=== PATIENT | female | born 1965 | race Two or more races ===

== ENCOUNTER → 2020-05-21 10:42 | Outpatient (BNVA) | payer OTHER, SELFPAY | PROVIDERS: Visit Provider Urology | DX: Z76.89 Persons encountering health services in other specified circumstances (principal) ==

== ENCOUNTER 2021-03-08 11:00 | Outpatient (RCR) | payer OTHER, SELFPAY | END 2021-03-22 14:53 | disposition home or self-care (01) | LOC: HO.PTCHIC 11:00 | PROVIDERS: PCP Internal Medicine; Visit Provider Orthopaedic Surgery | DX: Z96.641 Presence of right artificial hip joint (principal) | CPT/HCPCS: 97110; 97112; 97116; 97162; 97530 ==

== ENCOUNTER → 2022-05-20 09:28 | Outpatient (BNVA) | payer OTHER, SELFPAY | PROVIDERS: PCP Internal Medicine; Visit Provider Nurse Practitioner Family | DX: M35.3 Polymyalgia rheumatica (principal); M79.7 Fibromyalgia; M17.0 Bilateral primary osteoarthritis of knee; M25.511 Pain in right shoulder; M25.512 Pain in left shoulder; M54.2 Cervicalgia; Z79.52 Long term (current) use of systemic steroids | CPT/HCPCS: 99202 ==

== ENCOUNTER 2022-05-28 09:37 | Outpatient (REF) | payer OTHER, SELFPAY ==
--- NOTE | ~2022-05-28 | XR_ITS ---
EXAMINATION: XR SHOULDER, BILATERAL XR CERVICAL SPINE CLINICAL INFORMATION: Shoulder pain and neck pain. COMPARISON: None. TECHNIQUE: 4 views each shoulder. Cervical spine 3 views. FINDINGS: Right Shoulder: There is no visible acute fracture, dislocation or subluxation. No bony erosive changes. There is loss of right AC joint space with inferior spurring. The glenohumeral joint space is preserved normal. Left AC Joint: There is preserved glenohumeral joint space. There is minimal loss of left AC joint with periarticular spurring. The soft tissues are normal. Cervical Spine: There is mild straightening of cervical lordosis. There is flexible disc prostheses at the C5-C6 disc level. Minimal loss of C4-C5 disc height is noted. There is grade 1 anterolisthesis C3 over C4. The rest of the alignment and disc heights are normal. No visible acute fracture, lytic or sclerotic process seen. The prevertebral soft tissues are normal. XR/XR shoulder LT min 2V IMPRESSION: Flexible disc prosthesis C5-C6 disc level. Mild loss of C4-C5 disc height is noted. No visible acute fracture or dislocation seen. Mild degenerative arthritic changes bilateral AC joints. Bilateral glenohumeral joints are unremarkable. No acute fracture or dislocation seen.
--- NOTE | ~2022-05-28 | XR_ITS ---
EXAMINATION: XR SHOULDER, BILATERAL XR CERVICAL SPINE CLINICAL INFORMATION: Shoulder pain and neck pain. COMPARISON: None. TECHNIQUE: 4 views each shoulder. Cervical spine 3 views. FINDINGS: Right Shoulder: There is no visible acute fracture, dislocation or subluxation. No bony erosive changes. There is loss of right AC joint space with inferior spurring. The glenohumeral joint space is preserved normal. Left AC Joint: There is preserved glenohumeral joint space. There is minimal loss of left AC joint with periarticular spurring. The soft tissues are normal. Cervical Spine: There is mild straightening of cervical lordosis. There is flexible disc prostheses at the C5-C6 disc level. Minimal loss of C4-C5 disc height is noted. There is grade 1 anterolisthesis C3 over C4. The rest of the alignment and disc heights are normal. No visible acute fracture, lytic or sclerotic process seen. The prevertebral soft tissues are normal. XR/XR shoulder RT min 2V IMPRESSION: Flexible disc prosthesis C5-C6 disc level. Mild loss of C4-C5 disc height is noted. No visible acute fracture or dislocation seen. Mild degenerative arthritic changes bilateral AC joints. Bilateral glenohumeral joints are unremarkable. No acute fracture or dislocation seen.
--- NOTE | ~2022-05-28 | XR_ITS ---
EXAMINATION: XR SHOULDER, BILATERAL XR CERVICAL SPINE CLINICAL INFORMATION: Shoulder pain and neck pain. COMPARISON: None. TECHNIQUE: 4 views each shoulder. Cervical spine 3 views. FINDINGS: Right Shoulder: There is no visible acute fracture, dislocation or subluxation. No bony erosive changes. There is loss of right AC joint space with inferior spurring. The glenohumeral joint space is preserved normal. Left AC Joint: There is preserved glenohumeral joint space. There is minimal loss of left AC joint with periarticular spurring. The soft tissues are normal. Cervical Spine: There is mild straightening of cervical lordosis. There is flexible disc prostheses at the C5-C6 disc level. Minimal loss of C4-C5 disc height is noted. There is grade 1 anterolisthesis C3 over C4. The rest of the alignment and disc heights are normal. No visible acute fracture, lytic or sclerotic process seen. The prevertebral soft tissues are normal. XR/XR cervical spine 3V IMPRESSION: Flexible disc prosthesis C5-C6 disc level. Mild loss of C4-C5 disc height is noted. No visible acute fracture or dislocation seen. Mild degenerative arthritic changes bilateral AC joints. Bilateral glenohumeral joints are unremarkable. No acute fracture or dislocation seen.
[2022-05-28 11:00] LABS: Alanine Aminotransferase 13 U/L (0-31); Albumin Level 4.4 g/dL (3.5-5.0); Alkaline Phosphatase 90 U/L (39-117); Anion Gap 14 (12-20); Aspartate Amino Transferase 17 U/L (5-31); Bilirubin Total 0.3 mg/dL (0.0-1.0); Blood Urea Nitrogen 11 mg/dL (9-16); C Reactive Protein 0.27 mg/dL (< or = 0.50); Calcium 9.2 mg/dL (8.4-10.2); Carbon Dioxide 26 mmol/L (22-29); Chloride 104 mmol/L (96-108); Estimated Glomerular Filt Rate > 60; Glucose Random 114 mg/dL (60-115); Potassium 4.4 mmol/L (3.3-5.1); Sodium 140 mmol/L (135-145); Total Protein 6.8 g/dL (6.5-8.0)
[2022-05-28 11:23] LABS: Erythrocyte Sedimentation Rate 13 MM/HR (0-20)
== END 2022-05-28 09:38 | disposition home or self-care (01) ==
LOC: HO.LAB 09:37
PROVIDERS: PCP Internal Medicine; Visit Provider Nurse Practitioner Family
DX: M25.50 Pain in unspecified joint (principal); M25.511 Pain in right shoulder; M25.512 Pain in left shoulder; M54.2 Cervicalgia
CPT/HCPCS: 36415; 72040; 73030; 80053; 85652; 86140

== ENCOUNTER 2022-06-04 08:46 | Outpatient (REF) | payer OTHER, SELFPAY ==
--- NOTE | ~2022-06-04 | MM_ITS ---
EXAMINATION: BONE DENSITOMETRY CLINICAL INDICATION: Long-term, current, use of systemic steroids. COMPARISON: None (current study represents initial baseline exam). TECHNIQUE: Using a Values of n DXA System (software version: 13.1) manufactured by [employer], dual-energy x-ray absorptiometry was performed of the lumbar spine and left forearm radius 33%. Patient has had bilateral hip replacements. The images are of good technical quality. Summary results are attached. FINDINGS: AP SPINE L1-L4: BMD 1.047 g/cm2, Z-score 0.2, T-score -1.1, osteopenia. LEFT FOREARM RADIUS 33%: BMD 0.590 g/cm2, Z-score -2.5, T-score -3.3, osteoporosis. IDENTIFIED RISK FACTORS: Early menopause, secondary osteoporosis, glucocorticoids (chronic), family history (parental hip fracture), rheumatoid arthritis, recurrent falls. HISTORY OF FRACTURE: None listed. MEDICATIONS: None listed. MM/XR DEXA axial skeleton IMPRESSION: 1. DIAGNOSIS: Osteoporosis based on the lowest T-score value of -3.3 in the forearm radius 33% applying World Health Organization criteria. 2. 10-YEAR FRACTURE RISK PREDICTION, FRAX: According to the guidelines, FRAX calculation should only be performed on patients in the osteopenia bone density category. Therefore, FRAX was not performed on this patient. 3. Treatment Recommendations: NOF guidelines recommend consideration for treatment in postmenopausal women and men age 50 and older presenting with the following: -A hip or vertebral (clinical or morphometric) fracture. -T-score less than or equal to -2.5 at the femoral neck or spine after appropriate evaluation to exclude secondary causes. -Low bone mass at the hip or spine and a 10-year fracture probability by FRAX of greater than or equal to 3% for hip fracture or greater than or equal to 20% for major osteoporotic fracture based on the [place] adapted WHO algorithm. 4. Other Recommendations: All treatment decisions require clinical judgment and consideration of individual patient factors, including patient preferences, comorbidities, previous drug use, risk factors not captured in the FRAX model (e.g. frailty, falls, vitamin D deficiency, increased bone turnover, interval significant decline in bone density) and possible under or overestimation of fracture risk by FRAX. Additional medical evaluation for secondary cause of low bone mineral density may be appropriate. FUTURE SCAN RECOMMENDATION: People with diagnosed cases of osteoporosis or at high risk for fracture should have regular bone mineral density tests. For patients eligible for Medicare, routine testing is allowed once every 2 years. The testing frequency can be increased to one year for patients who have rapidly progressing disease, those who are receiving or discontinuing medical therapy to restore bone mass, or have additional risk factors.
== END 2022-06-04 08:47 | disposition home or self-care (01) ==
LOC: HO.MAMMO 08:46
PROVIDERS: PCP Internal Medicine; Visit Provider Nurse Practitioner Family
DX: Z13.820 Encounter for screening for osteoporosis (principal); Z79.52 Long term (current) use of systemic steroids; Z78.0 Asymptomatic menopausal state
CPT/HCPCS: 77080

== ENCOUNTER 2022-06-06 16:48 | Emergency (ER) | payer OTHER, SELFPAY ==
[2022-06-06 17:09] VITALS: BP 138/90; PULSE 83; O2SAT 98
[2022-06-06 17:24] VITALS: BP 133/72; PULSE 80; RESP 18; TEMP 37; O2SAT 98; BMI 23.2
== END 2022-06-06 19:44 | disposition left against medical advice (07) ==
PROVIDERS: Emergency Provider Emergency Medicine
DX: S01.511A Laceration without foreign body of lip, initial encounter (principal); W18.30XA Fall on same level, unspecified, initial encounter; Y93.9 Activity, unspecified; Y92.019 Unspecified place in single-family (private) house as the place of occurrence of the external cause; Y99.9 Unspecified external cause status
CPT/HCPCS: 99281

== ENCOUNTER 2022-07-17 09:30 | Outpatient (REF) | payer OTHER, SELFPAY ==
--- NOTE | ~2022-07-17 | XR_ITS ---
EXAMINATION: KNEE X-RAY CLINICAL INFORMATION: Left knee pain COMPARISON: None TECHNIQUE: Standing AP view of both knees and lateral and sunrise view of the left knee FINDINGS: Left: There is an old healed left distal femoral shaft and condylar fracture. There is severe arthritis at the patellofemoral joint and mild arthritis at the lateral femoral tibial joint. There is a small joint effusion. Standing AP view of the right knee is unremarkable. XR/XR knee LT 2V IMPRESSION: Left: Old healed distal femoral shaft fracture. Arthritis, severe at the patellofemoral joint.
--- NOTE | ~2022-07-17 | XR_ITS ---
EXAMINATION: KNEE X-RAY CLINICAL INFORMATION: Left knee pain COMPARISON: None TECHNIQUE: Standing AP view of both knees and lateral and sunrise view of the left knee FINDINGS: Left: There is an old healed left distal femoral shaft and condylar fracture. There is severe arthritis at the patellofemoral joint and mild arthritis at the lateral femoral tibial joint. There is a small joint effusion. Standing AP view of the right knee is unremarkable. XR/XR knee standing BI IMPRESSION: Left: Old healed distal femoral shaft fracture. Arthritis, severe at the patellofemoral joint.
--- NOTE | ~2022-07-17 | XR_ITS ---
EXAMINATION: XR HIP, LEFT CLINICAL INFORMATION: Pain COMPARISON: Previous x-ray March 2020 TECHNIQUE: AP view of the pelvis and one view of each hip FINDINGS: There are bilateral hip replacements in satisfactory position. No fracture, dislocation or x-ray evidence of loosening. Bones of the pelvis are normal. Soft tissues are normal. XR/XR hip LT w PEL1V IMPRESSION: Satisfactory appearance of bilateral hip replacements.
== END 2022-07-17 09:31 | disposition home or self-care (01) ==
LOC: HO.HOSX 09:30
PROVIDERS: Visit Provider Physician Assistant
DX: M25.552 Pain in left hip (principal); M25.562 Pain in left knee; M25.561 Pain in right knee
CPT/HCPCS: 73502; 73560; 73565; 99202

== ENCOUNTER 2022-09-19 13:48 | Emergency (ER) | payer OTHER, SELFPAY ==
--- NOTE | ~2022-09-19 | CT_ITS ---
EXAMINATION: CT HEAD WITHOUT CONTRAST CLINICAL INFORMATION: Vertigo. COMPARISON: No relevant prior imaging. TECHNIQUE: Contiguous axial imaging was performed from the skull base to vertex without intravenous administration of contrast. This CT examination was performed using dose optimization techniques as appropriate, variously including the following: *Automated exposure control *Adjustment of mA and/or kV according to patient size (this includes techniques or standardized protocols for targeted exams where dose is matched to indication/reason for exam; i.e. extremities or head) *Use of iterative reconstruction technique DLP: 605 mGy-cm FINDINGS: There is no acute intracranial hemorrhage or abnormal extra-axial collection. No intracranial mass effect or midline shift. Lateral and third ventricles are normal. No hydrocephalus. Wilcox-white matter differentiation is preserved and there is no evidence of acute territorial infarct. The calvarium and skull base are intact. Mastoid air cells and middle ear cavities are well aerated. CT/CT head/brain wo IV con IMPRESSION: Normal CT scan of the head.
[2022-09-19 14:06] VITALS: BP 120/82; BP 140/70; PULSE 70; PULSE 80; RESP 16; O2SAT 98; O2SAT 99; BMI 22.8
--- NOTE | 2022-09-19 14:24 | ED_ITS ---
HPI - General Adult General Chief complaint: Nausea/Vomiting/Diarrhea Stated complaint: Hernia per EMS Time Seen by Provider: 09/19/22 14:09 Source: patient Mode of arrival: EMS Limitations: no limitations History of Present Illness HPI narrative: Patient with dizziness and vomiting. The dizziness is described as room spinning. Dizziness is worse when she moves her head, denies ringing in the ears, denies earache. Onset (ago): hour(s) Severity: moderate Exacerbating factors: other (head movement.) Associated symptoms: nausea/vomiting Related Data Home Medications Medication Instructions Recorded Confirmed albuterol sulfate 90 mcg/actuation inhalation 05/19/20 05/20/22 aerosol inhaler atorvastatin 80 mg tablet 80 mg PO DAILY 05/19/20 05/20/22 ipratropium 0.5 mg-albuterol 3 mg ml inhalation 05/19/20 05/20/22 (2.5 mg base)/3 mL nebulization soln loratadine 10 mg tablet 10 mg PO DAILY PRN allergies 05/19/20 05/20/22 omeprazole 20 mg capsule,delayed 20 mg PO DAILY 05/19/20 05/20/22 release acetaminophen 500 mg tablet 500 mg PO Q6H PRN 05/20/22 05/20/22 budesonide-formoterol HFA 160 2 puff inhalation BID 05/20/22 05/20/22 mcg-4.5 mcg/actuation aerosol inhaler gabapentin 300 mg capsule 300 mg PO TID 05/20/22 05/20/22 methocarbamol 500 mg tablet 500 mg PO TID 05/20/22 05/20/22 montelukast 10 mg tablet 10 mg PO BEDTIME 05/20/22 05/20/22 Previous Rx's Medication Instructions Recorded meclizine 25 mg tablet 25 mg PO TID dizziness #20 tabs 09/19/22 ondansetron 4 mg disintegrating 4 mg PO Q8H 4 days #12 tabs 09/19/22 tablet Allergies Allergy/AdvReac Type Severity Reaction Status Date / Time No Known Allergies Allergy Unverified 07/17/22 10:09 [No Known Allergies*] Review of Systems Review of Systems: Yes all other systems are reviewed and are negative Constitutional: Comments: dizziness, nausea and vomiting PMFSH Past Medical History Surgical History H/O bilateral hip replacements H/O cervical spine surgery History of appendectomy History of eye surgery Hx of section Family History Family History Father Emphysema lung Mother Hypertension Arthritis Diabetes Social History Social History Household Members: None Alcohol intake: current Alcohol intake frequency: does not drink Patient Tobacco Use Status: Former Tobacco user Quit Date: 2018 Substance Use Type: Marijuana Advance Directives: No Advance Directives Information Provided: No Current occupational status: disabled Physical Exam ED Vital Signs: Vital Signs - 24 hr 09/19/22 14:06 Pulse Rate 70 Respiratory Rate 16 Blood Pressure 140/70 H Pulse Oximetry 98 Oxygen Delivery Method Room Air BMI result Body Mass Index 22.8 Const Other: chronically ill appearing Nutritional Appearance: average body habitus Orientation/consciousness: oriented to person and patient oriented x3 Limitations: no limitations HENMT Head: Yes normal to inspection Ears: external ears normal General nose exam: Normal external nose present Mouth: Normal oral and palatal mucosa present and oropharynx normal Throat: Yes posterior oropharynx normal Eyes Other: right lateral nystagmus General: appearance normal, both eyes and all related structures Neck Neck: Yes normal visual inspection Chest Chest palpation & inspection: normal inspection of the chest Resp Auscultation: clear to auscultation bilaterally Cardio Jugular venous distension: no JVD Rate: regular rate Rhythm: regular rhythm Heart sounds: S1 normal heart sound present and S2 normal heart sound present GI Inspection: Yes normal to inspection Palpation (GI): Soft to palpation, nontender and No hepatosplenomegaly present Auscultation: normal bowel sounds General: Yes no CVA tenderness Back/Spine/Pelvis Back: no CVA tenderness Skin General skin exam: no rashes or lesions noted Neuro General: oriented to person and patient oriented x3 Cranial nerves: Yes CN's II-XII intact bilaterally Motor exam (neuro): 5/5 motor strength present throughout Extrem General: Yes normal to inspection Psych Appearance: grossly normal Course Reevaluation(s) Reevaluation #1: patient with vertigo will dc home Time: 16:55 Medications Administered Discontinued Medications Generic Name Dose Route Start Last Admin Trade Name Freq PRN Reason Stop Dose Admin Meclizine HCl 50 mg 09/19/22 14:37 09/19/22 15:44 Meclizine Hcl 25 Mg Tablet PO 09/19/22 14:38 50 mg ONCE ONE Administration Ondansetron HCl 4 mg 09/19/22 14:37 09/19/22 15:44 Ondansetron Hcl 4 Mg/2 Ml Vial IVPUSH 09/19/22 14:38 4 mg ONCE ONE Administration Pantoprazole Sodium 40 mg 09/19/22 14:37 09/19/22 15:44 Pantoprazole Sodium 40 Mg/10 Ml Vial IVPUSH 09/19/22 14:38 40 mg ONCE ONE Administration Medical Decision Making Differential Diagnosis vertigo, gastritis, nausea vomiting, brain mass Admission/Observation 60 you with the above symptoms admission was considered Lab Data MDM Lab Attestation statement: I reviewed the patient's lab results. 09/19/22 14:54 09/19/22 14:54 Labs: Lab Results 09/19/22 09/19/22 Range/Units 14:54 14:54 WBC 7.4 (4.8-10.8) X10*3/uL RBC 4.49 (4.20-5.50) X10*6/uL Hgb 12.4 (12.0-16.0) g/dl Hct 38.7 (37.0-47.0) % MCV 86.2 (80.0-98.0) fL MCH 27.6 (27.0-33.0) pg MCHC 32.0 (31.0-35.0) g/dl RDW 14.3 (11.0-16.0) % Plt Count 221 (160-400) X10*3/uL MPV 10.4 (9.4-12.3) fL Immature Gran % (Auto) 0.3 (0.0-0.4) % Neut % (Auto) 67.8 (45-73) % Lymph % (Auto) 22.3 (20-40) % Brooks % (Auto) 8.8 (2-11) % Eos % (Auto) 0.3 (0-4) % Baso % (Auto) 0.5 (0-2) % Lymph # (Auto) 1.7 (1.2-4.9) X10*3/uL Brooks # (Auto) 0.7 (0.1-1.2) X10*3/uL Eos # (Auto) 0.0 (0.0-0.4) X10*3/uL Baso # (Auto) 0.0 (0.0-0.2) X10*3/uL Abs Immat Gran (auto) 0.02 (0.00-0.03) X10*3/uL Absolute Neuts (auto) 5.0 (2.0-8.3) x10*3/uL Absolute Nucleated RBC 0.000 (0.0-0.012) X10*3/uL Nucleated RBC % (auto) 0.0 (0.0-0.2) /100WBC Sodium 139 (135-145) mmol/L Potassium 3.8 (3.3-5.1) mmol/L Chloride 105 (96-108) mmol/L Carbon Dioxide 25 (22-29) mmol/L Anion Gap 13 (12-20) BUN 15 (9-16) mg/dL Creatinine 0.75 (0.5-1.4) mg/dL Estim Creat Clear Calc 63.8 Estimated GFR > 60 Random Glucose 135 H (60-115) mg/dL Calcium 9.4 (8.4-10.2) mg/dL Independent Interpretation I performed an independent interpretation of an: CT Scan (no masses or bleed) Independent Historian Clinical information obtained from an independent historian. History obtained from or confirmed by: EMS Discharge Plan Discharge Clinical Impression: Vertigo, Nausea & vomiting Patient Disposition: Home, Self-Care Instructions: Vertigo (ED), Acute Nausea and Vomiting (ED), Dizziness (ED) Prescriptions: New ondansetron 4 mg tablet,disintegrating 4 mg PO Q8H 4 Days Qty: 12 0RF meclizine 25 mg tablet 25 mg PO TID Qty: 20 0RF No Action loratadine 10 mg tablet 10 mg PO DAILY PRN (Reason: allergies) omeprazole 20 mg capsule,delayed release(DR/EC) 20 mg PO DAILY atorvastatin 80 mg tablet 80 mg PO DAILY albuterol sulfate 90 mcg/actuation HFA aerosol inhaler inhalation ipratropium-albuterol 0.5 mg-3 mg(2.5 mg base)/3 mL solution for nebulization inhalation acetaminophen 500 mg tablet 500 mg PO Q6H PRN gabapentin 300 mg capsule 300 mg PO TID methocarbamol 500 mg tablet 500 mg PO TID montelukast 10 mg tablet 10 mg PO BEDTIME budesonide-formoterol 160-4.5 mcg/actuation HFA aerosol inhaler 2 puff inhalation BID Referrals: Physician,Unknown J [Primary Care Provider] - 5 days
[2022-09-19 15:00] LABS: Basophils Percent Auto 0.5 % (0-2); Eosinophils Percent Auto 0.3 % (0-4); Hematocrit 38.7 % (37.0-47.0); Hemoglobin 12.4 g/dl (12.0-16.0); Imm Gran Abs Auto 0.02 X10*3/uL (0.00-0.03); Imm Gran Pct Auto 0.3 % (0.0-0.4); Lymphocytes Absolute Auto 1.7 X10*3/uL (1.2-4.9); Lymphocytes Percent Auto 22.3 % (20-40); MANUAL DIFF FLAG NO; Mean Corpuscular Hemoglobin 27.6 pg (27.0-33.0); Mean Corpuscular Volume 86.2 fL (80.0-98.0); Mean Platelet Volume 10.4 fL (9.4-12.3); Monocytes Absolute Auto 0.7 X10*3/uL (0.1-1.2); Monocytes Percent Auto 8.8 % (2-11); Neutrophils Percent Auto 67.8 % (45-73); Platelet Count 221 X10*3/uL (160-400); Red Blood Count 4.49 X10*6/uL (4.20-5.50); Red Cell Distribution Width 14.3 % (11.0-16.0); White Blood Count 7.4 X10*3/uL (4.8-10.8)
[2022-09-19 15:20] LABS: Anion Gap 13 (12-20); Blood Urea Nitrogen 15 mg/dL (9-16); Calcium 9.4 mg/dL (8.4-10.2); Carbon Dioxide 25 mmol/L (22-29); Chloride 105 mmol/L (96-108); Creatinine Clr Calc Pharmacy 63.8; Estimated Glomerular Filt Rate > 60; Glucose Random 135 mg/dL (60-115); Potassium 3.8 mmol/L (3.3-5.1); Sodium 139 mmol/L (135-145)
[2022-09-19] MEDS: Pantoprazole Sodium 40 MG/10 ML VIAL IVPUSH (15:44)
[2022-09-19] MEDS: ondansetron HCL 4 MG/2 ML VIAL IVPUSH (15:44)
[2022-09-19] MEDS: Meclizine HCl 25 MG TABLET 50 MG PO (15:44)
== END 2022-09-19 17:27 | disposition home or self-care (01) ==
PROVIDERS: Emergency Provider Emergency Medicine
DX: R42 Dizziness and giddiness (principal); R11.2 Nausea with vomiting, unspecified; R51.9 Headache, unspecified; Z87.891 Personal history of nicotine dependence; Z79.899 Other long term (current) drug therapy
CPT/HCPCS: 36415; 70450; 80048; 85025; 96374; 96375; 99284; J2405

== ENCOUNTER 2022-11-11 11:04 | Outpatient (REF) | payer OTHER, SELFPAY ==
[2022-11-11 11:23] LABS: MANUAL DIFF FLAG NO
[2022-11-11 11:53] LABS: Basophils Absolute Auto 0.1 X10*3/uL (0.0-0.2); Basophils Percent Auto 0.9 % (0-2); Eosinophils Percent Auto 0.4 % (0-4); Hematocrit 42.3 % (37.0-47.0); Hemoglobin 13.4 g/dl (12.0-16.0); Imm Gran Abs Auto 0.01 X10*3/uL (0.00-0.03); Imm Gran Pct Auto 0.1 % (0.0-0.4); Lymphocytes Absolute Auto 2.3 X10*3/uL (1.2-4.9); Mean Corpuscular HGB Conc 31.7 g/dl (31.0-35.0); Mean Corpuscular Volume 88.5 fL (80.0-98.0); Mean Platelet Volume 10.5 fL (9.4-12.3); Monocytes Absolute Auto 0.7 X10*3/uL (0.1-1.2); Monocytes Percent Auto 9.5 % (2-11); Neutrophils Absolute Auto 3.8 x10*3/uL (2.0-8.3); Neutrophils Percent Auto 56.1 % (45-73); Platelet Count 277 X10*3/uL (160-400); Red Blood Count 4.78 X10*6/uL (4.20-5.50); Red Cell Distribution Width 13.9 % (11.0-16.0); White Blood Count 6.8 X10*3/uL (4.8-10.8)
== END 2022-11-11 11:05 | disposition home or self-care (01) ==
LOC: HO.LAB 11:04
PROVIDERS: PCP Internal Medicine; Visit Provider Nurse Practitioner Family
DX: M81.0 Age-related osteoporosis without current pathological fracture (principal)
CPT/HCPCS: 36415; 82306; 85025

== ENCOUNTER → 2022-11-13 09:51 | Outpatient (BNVA) | payer OTHER, SELFPAY | PROVIDERS: PCP Internal Medicine; Visit Provider Nurse Practitioner Family | DX: M17.0 Bilateral primary osteoarthritis of knee (principal); M79.7 Fibromyalgia; M35.3 Polymyalgia rheumatica; M81.0 Age-related osteoporosis without current pathological fracture | CPT/HCPCS: 99212 ==

== ENCOUNTER 2022-11-25 10:20 | Outpatient (REF) | payer OTHER, SELFPAY ==
[2022-11-25 11:18] LABS: Alanine Aminotransferase 16 U/L (0-31); Albumin Level 4.3 g/dL (3.5-5.0); Alkaline Phosphatase 105 U/L (39-117); Anion Gap 13 (12-20); Aspartate Amino Transferase 15 U/L (5-31); Bilirubin Total 0.5 mg/dL (0.0-1.0); Blood Urea Nitrogen 13 mg/dL (9-16); C Reactive Protein 0.64 mg/dL (< or = 0.50); Calcium 9.5 mg/dL (8.4-10.2); Carbon Dioxide 25 mmol/L (22-29); Chloride 108 mmol/L (96-108); Estimated Glomerular Filt Rate > 60; Glucose Random 107 mg/dL (60-115); Phosphorus 3.9 mg/dL (2.7-4.5); Potassium 4.6 mmol/L (3.3-5.1); Sodium 141 mmol/L (135-145); Total Protein 6.7 g/dL (6.5-8.0)
[2022-11-25 11:52] LABS: Erythrocyte Sedimentation Rate 12 MM/HR (0-20)
== END 2022-11-25 10:21 | disposition home or self-care (01) ==
LOC: HO.LAB 10:20
PROVIDERS: PCP Internal Medicine; Visit Provider Nurse Practitioner Family
DX: M81.0 Age-related osteoporosis without current pathological fracture (principal); M35.3 Polymyalgia rheumatica
CPT/HCPCS: 36415; 80053; 84100; 85652; 86140

== ENCOUNTER 2022-11-27 10:08 | Outpatient (REF) | payer OTHER, SELFPAY | END 2022-11-27 10:09 | disposition home or self-care (01) | LOC: HO.MDS 10:08 | PROVIDERS: PCP Internal Medicine; Visit Provider Nurse Practitioner Family | DX: M81.0 Age-related osteoporosis without current pathological fracture (principal) | CPT/HCPCS: 96365; J3489 ==

== ENCOUNTER 2023-04-29 14:55 | Outpatient (AMB) | payer OTHER, SELFPAY ==
[2023-04-29 15:00] VITALS: BP 120/68; PULSE 58; TEMP 36.2; O2SAT 97; BMI 24.4
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
== END 2023-04-29 15:35 | disposition home or self-care (01) ==
PROVIDERS: PCP Internal Medicine; Visit Provider Student in an Organized Health Care Education/Training Program
DX: M35.3 Polymyalgia rheumatica (principal); M17.0 Bilateral primary osteoarthritis of knee; M81.0 Age-related osteoporosis without current pathological fracture
CPT/HCPCS: 99214

== ENCOUNTER → 2023-04-29 14:55 | Outpatient (BNVA) | payer OTHER, SELFPAY | PROVIDERS: PCP Internal Medicine; Visit Provider Student in an Organized Health Care Education/Training Program | DX: M81.0 Age-related osteoporosis without current pathological fracture (principal); M35.3 Polymyalgia rheumatica; M17.0 Bilateral primary osteoarthritis of knee | CPT/HCPCS: 99212 ==

== ENCOUNTER 2023-05-01 09:42 | Outpatient (REF) | payer OTHER, SELFPAY ==
--- NOTE | ~2023-05-01 | XR_ITS ---
EXAMINATION: XR CERVICAL SPINE CLINICAL INFORMATION: Cervical disc disorder, unspecified, unspecified cervical region COMPARISON: Cervical spine 05/28/2022 TECHNIQUE: AP, lateral, lateral flexion and lateral extension of the cervical spine FINDINGS: There is mild straightening of the usual cervical lordosis. There is a disc prosthesis at C5-C6, unchanged in appearance. There is grade 1 anterolisthesis of C3 over C4. This is unchanged on flexion and mostly reduces on extension. The rest of the alignment and disc heights space heights are normal. No visible acute fracture, lytic or sclerotic process. Prevertebral soft tissues are within normal limits. XR/XR cervical spine 4V IMPRESSION: 1. Disc prosthesis at C5-C6, unchanged in appearance. 2. Grade 1 anterolisthesis of C3 over C4. This is unchanged on flexion and mostly reduces on extension.
== END 2023-05-01 09:43 | disposition home or self-care (01) ==
LOC: HO.HOSX 09:42
PROVIDERS: PCP Internal Medicine; Visit Provider Physician Assistant
DX: K50.90 Crohn's disease, unspecified, without complications (principal)
CPT/HCPCS: 72050

== ENCOUNTER 2023-05-01 09:42 | Outpatient (AMB) | payer OTHER, SELFPAY ==
--- NOTE | 2023-05-01 10:16 | HO.SPINEOV ---
Intake Intake Visit Reasons: Neck pain Intake Note: Ms. Cuello is here today c/o neck pain. MRI done @ [facility]/brought disc. Geosciences Associate Professor Required: No Allergies No Known Allergies [No Known Allergies*] Allergy (Unverified 04/29/23 15:03) Assessment & Plan Assessment & Plan (1) Cervical disc disorder: Code(s): M50.90 - Cervical disc disorder, unspecified, unspecified cervical region Plan Dear Carrington, Thank you for referring Mrs Cuello to our office today. She is a 57-year-old female who presents to the office for evaluation of ongoing neck pain with pain going down both arms into her hands with feelings of weakness. She had a previous C5-6 total disc arthroplasty by Dr. Lanier in 2019 at [facility] in tells me that she did fairly well from that. She reports at the time of the initial surgery happened after a fall and she was having neck pain and pain down her arms very similar to what she is having now. The symptoms have developed over the last 5 months. She went back to see Dr. Lanier told her everything looked fine on the MRI and that she should just continue with conservative treatments. She is being seen today as a 2nd opinion. She reports that her new symptoms started 5 months ago. She frequently has fall secondary to a problem in her left knee and feels that it may have started after 1 of those falls. She feels as though something is slipping in her neck and she has severe amounts of neck pain at the posterior lower cervical level. She is getting the arm pains down her arms again into her hands. She could not localize it any better for me. She feels diffuse weakness and pain throughout her body. She also has a history of polymyalgia. She does feel numbness in her left foot and occasionally in both of her hands. She has an MRI done at [facility] (formerly [facility]) which shows metallic artifact at C5-6 from the implant with question of severe stenosis. PMH: She has history of hemorrhoids, GERD, high cholesterol, previous smoker, a low allergy rhinitis, eczema, COPD, right hip replacement, memory impairment, polymyalgia rheumatica Social hx: Former smoker Medications: Gabapentin, prednisone which she takes a few times a week, omeprazole, atorvastatin, Tylenol, Claritin Allergies: Seasonal allergies and latex Physical exam: She is awake alert oriented no acute distress, used an guideman for today's visit, she has limited strength in her upper extremities but I question if this is effort related rather than true weakness. She tells me that her arms hurt when I try to get her to do any strength testing. She is diffusely hyperreflexic with Hans sign on both sides in clonus and hyperreflexia in her lower extremities. She has a knee brace on her left knee. Imaging review: Cervical MRI done at [facility] shows metallic artifact at C5-6 obscuring the spinal canal at this level. The rest of her cervical spine otherwise just has some mild disc degeneration. The radiologist is reading this is severe spinal cord stenosis or possible artifact. There are plain films with an AP and lateral view but no flexion-extension studies. Impression: 57-year-old female with history of total disc arthroplasty at C5-6 who has had progressive return of the symptoms that initially brought her to Dr. Lanier who did her surgery. The symptoms are getting severe to a point now where she is having a lot of difficulty moving her neck and she is feeling as though something sliding in her neck when she moves and twists her head. She is getting severe cramping down her arms with feelings of weakness in her hands. She is diffusely hyperreflexic. I looked at her old MRI in 2020 and do not see any evidence of cord compression on that imaging that would have to explain hyperreflexia or myelopathy has her initial presenting picture. I would like to order a CT myelogram of the cervical spine take a closer look at the C5-6 area to see if there is any residual foraminal stenosis to explain her severe arm pain. Although the radiologist suggests there could be severe stenosis at this level, I suspect it is just metallic artifact. I would also like to get flexion-extension x-rays to take her look at her disc prosthesis. I do not have an explanation for her hyperreflexia. I will see her back after the CT myelogram is completed. Thank you for allowing us to care for your patient. The total time spent with this visit with this patient was 45 minutes reviewing history, physical exam, cervical spine MRI imaging review, and implementation of treatment plan or further diagnostic testing Sy Gale MD,PhD [facility] Orders: Orders XR cervical spine 4V Today M50.90 - Cervical disc disorder, unspecified, unspecified cervical region [place] myelogram spine cervical Today M50.90 - Cervical disc disorder, unspecified, unspecified cervical region Coding Level of Care Code New Pt Level 4 (93421) Diagnoses Cervical disc disorder M50.90
== END 2023-05-01 11:38 | disposition home or self-care (01) ==
PROVIDERS: PCP Internal Medicine; Referring Provider Physician Assistant; Visit Provider Physician Assistant
DX: M50.90 Cervical disc disorder, unspecified, unspecified cervical region (principal)
CPT/HCPCS: 99204

== ENCOUNTER 2023-06-17 07:26 | Outpatient (AMB) | payer OTHER, SELFPAY ==
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
[2023-06-17 07:37] VITALS: BP 100/80; PULSE 64; TEMP 36.1; O2SAT 98; BMI 24.8
== END 2023-06-17 08:10 | disposition home or self-care (01) ==
LOC: HO.RHE 07:26
PROVIDERS: PCP Internal Medicine; Visit Provider Student in an Organized Health Care Education/Training Program
DX: M35.3 Polymyalgia rheumatica (principal); M81.0 Age-related osteoporosis without current pathological fracture
CPT/HCPCS: 99214

== ENCOUNTER → 2023-06-17 07:26 | Outpatient (BNVA) | payer OTHER, SELFPAY | PROVIDERS: PCP Internal Medicine; Visit Provider Student in an Organized Health Care Education/Training Program | DX: M35.3 Polymyalgia rheumatica (principal); M81.0 Age-related osteoporosis without current pathological fracture | CPT/HCPCS: 99212 ==

== ENCOUNTER 2023-06-26 10:43 | Outpatient (REF) | payer OTHER, SELFPAY ==
[2023-06-26 11:07] LABS: MANUAL DIFF FLAG NO
[2023-06-26 12:05] LABS: Basophils Absolute Auto 0.1 X10*3/uL (0.0-0.2); Basophils Percent Auto 0.9 % (0-2); Eosinophils Percent Auto 0.4 % (0-4); Hematocrit 40.4 % (37.0-47.0); Hemoglobin 12.8 g/dl (12.0-16.0); Imm Gran Abs Auto 0.01 X10*3/uL (0.00-0.03); Imm Gran Pct Auto 0.2 % (0.0-0.4); Lymphocytes Absolute Auto 1.9 X10*3/uL (1.2-4.9); Lymphocytes Percent Auto 34.3 % (20-40); Mean Corpuscular HGB Conc 31.7 g/dl (31.0-35.0); Mean Corpuscular Hemoglobin 28.6 pg (27.0-33.0); Mean Corpuscular Volume 90.2 fL (80.0-98.0); Mean Platelet Volume 10.5 fL (9.4-12.3); Monocytes Absolute Auto 0.4 X10*3/uL (0.1-1.2); Neutrophils Percent Auto 56.2 % (45-73); Platelet Count 264 X10*3/uL (160-400); Red Blood Count 4.48 X10*6/uL (4.20-5.50); Red Cell Distribution Width 12.7 % (11.0-16.0); White Blood Count 5.4 X10*3/uL (4.8-10.8)
[2023-06-26 12:56] LABS: Erythrocyte Sedimentation Rate 12 MM/HR (0-20)
[2023-06-26 13:16] LABS: Alanine Aminotransferase 13 U/L (0-31); Albumin Level 4.2 g/dL (3.5-5.0); Alkaline Phosphatase 69 U/L (39-117); Anion Gap 10 (12-20); Aspartate Amino Transferase 18 U/L (5-31); Bilirubin Total 0.4 mg/dL (0.0-1.0); Blood Urea Nitrogen 8 mg/dL (9-16); C Reactive Protein 0.35 mg/dL (< or = 0.50); Carbon Dioxide 25 mmol/L (22-29); Chloride 110 mmol/L (96-108); Estimated Glomerular Filt Rate > 60; Glucose Random 94 mg/dL (60-115); Potassium 3.9 mmol/L (3.3-5.1); Rheumatoid Factor < 13.0 IU/mL (<15.0); Sodium 141 mmol/L (135-145); Total Protein 7.1 g/dL (6.5-8.0)
[2023-06-27 04:01] LABS: HBS Num1 66.58 mIU/mL (0-7.99); HBc Num1 0.07 S/CO (0.00-0.79); HBsAGNum1 0.31 S/CO (0.00-0.99); Hepatitis A Antibody IgM 0.18 Index (0-0.79); Hepatitis B Core Antibody Nonreactive (Nonreactive); Hepatitis B Surface Antigen Negative (Negative); ~HepC Num1 0.07 S/CO (0.00-0.79); ~Hepatitis A Antibody IgM Nonreactive (Nonreactive); ~Hepatitis B Surface Antibody REACTIVE (Nonreactive); ~Hepatitis C Antibody Nonreactive (Nonreactive)
[2023-06-29 12:08] LABS: TS Negative Control Passed; TS Panel A 2; TS Panel B 2; TS Positive Control Passed; TSpotTB Negative (Negative)
[2023-06-29 13:14] LABS: Cyclic Citrullinated Peptide <16 UNITS
[2023-06-30 22:38] LABS: Prot Elec - Albumin 4.1 g/dL (3.8-4.8); Prot Elec - Alpha1 0.3 g/dL (0.2-0.3); Prot Elec - Alpha2 0.7 g/dL (0.5-0.9); Prot Elec - Beta 1 0.4 g/dL (0.4-0.6); Prot Elec - Beta 2 0.4 g/dL (0.2-0.5); Prot Elec - Gamma 0.9 g/dL (0.8-1.7); Prot Elec - Total Protein 6.8 g/dL (6.1-8.1)
[2023-07-01 10:48] LABS: IgA 226 mg/dL (47-310); IgG 987 mg/dL (600-1640); IgM 68 mg/dL (50-300)
[2023-07-02 10:04] LABS: Anti Nuclear Antibody Screen NEGATIVE (NEGATIVE)
== END 2023-06-26 10:44 | disposition home or self-care (01) ==
LOC: HO.LAB 10:43
PROVIDERS: PCP Internal Medicine; Visit Provider Student in an Organized Health Care Education/Training Program
DX: M06.9 Rheumatoid arthritis, unspecified (principal); Z11.7 Encounter for testing for latent tuberculosis infection; Z11.59 Encounter for screening for other viral diseases
CPT/HCPCS: 36415; 80053; 82784; 84165; 85025; 85652; 86038; 86140; 86200; 86334; 86431; 86481; 86704; 86706; 86709; 86803; 87340

== ENCOUNTER 2023-06-30 09:15 | Outpatient (AMB) | payer OTHER, SELFPAY ==
[2023-06-30 09:30] VITALS: BP 126/68; PULSE 78; TEMP 36.4; O2SAT 98; BMI 24.9
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
== END 2023-06-30 10:19 | disposition home or self-care (01) ==
PROVIDERS: PCP Internal Medicine; Visit Provider Student in an Organized Health Care Education/Training Program
DX: M50.90 Cervical disc disorder, unspecified, unspecified cervical region (principal); M70.61 Trochanteric bursitis, right hip; M81.0 Age-related osteoporosis without current pathological fracture
CPT/HCPCS: 20610; 99214

== ENCOUNTER → 2023-06-30 09:15 | Outpatient (BNVA) | payer OTHER, SELFPAY | PROVIDERS: PCP Internal Medicine; Visit Provider Student in an Organized Health Care Education/Training Program | DX: M70.61 Trochanteric bursitis, right hip (principal); M81.0 Age-related osteoporosis without current pathological fracture; M50.90 Cervical disc disorder, unspecified, unspecified cervical region | CPT/HCPCS: 20610; 99212 ==

== ENCOUNTER 2023-11-18 10:02 | Outpatient (REF) | payer OTHER, SELFPAY ==
[2023-11-18 11:34] LABS: Alanine Aminotransferase 20 U/L (0-31); Albumin Level 4.1 g/dL (3.5-5.0); Alkaline Phosphatase 80 U/L (39-117); Anion Gap 13 (12-20); Aspartate Amino Transferase 21 U/L (5-31); Bilirubin Total 0.5 mg/dL (0.0-1.0); Blood Urea Nitrogen 10 mg/dL (9-16); Calcium 9.6 mg/dL (8.4-10.2); Carbon Dioxide 28 mmol/L (22-29); Chloride 108 mmol/L (96-108); Estimated Glomerular Filt Rate > 60; Glucose Random 88 mg/dL (60-115); Potassium 4.6 mmol/L (3.3-5.1); Sodium 144 mmol/L (135-145); Total Protein 7.4 g/dL (6.5-8.0)
[2023-11-22 16:08] LABS: Vitamin D 25-OH, D2 <4 ng/mL; Vitamin D 25-OH, D3 17 ng/mL; Vitamin D 25-OH, Total 17 ng/mL (30-100)
== END 2023-11-18 10:03 | disposition home or self-care (01) ==
LOC: HO.LAB 10:02
PROVIDERS: PCP Internal Medicine; Visit Provider Student in an Organized Health Care Education/Training Program
DX: M81.0 Age-related osteoporosis without current pathological fracture (principal); Z13.21 Encounter for screening for nutritional disorder
CPT/HCPCS: 36415; 80053; 82306

== ENCOUNTER 2023-11-24 09:27 | Outpatient (AMB) | payer OTHER, SELFPAY ==
[2023-11-24 10:01] VITALS: BP 148/66; PULSE 65; O2SAT 98; BMI 25.2
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
== END 2023-11-24 10:39 | disposition home or self-care (01) ==
PROVIDERS: PCP Internal Medicine; Visit Provider Student in an Organized Health Care Education/Training Program
DX: M35.3 Polymyalgia rheumatica (principal); M19.011 Primary osteoarthritis, right shoulder; M17.0 Bilateral primary osteoarthritis of knee; M81.0 Age-related osteoporosis without current pathological fracture
CPT/HCPCS: 20610; 99214

== ENCOUNTER → 2023-11-24 09:27 | Outpatient (BNVA) | payer OTHER, SELFPAY | PROVIDERS: PCP Internal Medicine; Visit Provider Student in an Organized Health Care Education/Training Program | DX: M35.3 Polymyalgia rheumatica (principal); M19.011 Primary osteoarthritis, right shoulder; M17.0 Bilateral primary osteoarthritis of knee; M81.0 Age-related osteoporosis without current pathological fracture | CPT/HCPCS: 20610; 99212 ==

== ENCOUNTER 2024-03-14 08:48 | Outpatient (REF) | payer OTHER, SELFPAY ==
[2024-03-14 11:59] LABS: Anion Gap 11 (12-20); Blood Urea Nitrogen 13 mg/dL (9-16); Calcium 9.3 mg/dL (8.4-10.2); Carbon Dioxide 27 mmol/L (22-29); Chloride 109 mmol/L (96-108); Estimated Glomerular Filt Rate > 60; Glucose Random 99 mg/dL (60-115); Potassium 4.1 mmol/L (3.3-5.1); Sodium 143 mmol/L (135-145)
[2024-03-18 12:03] LABS: Vitamin D 25-OH, D2 <4 ng/mL; Vitamin D 25-OH, D3 25 ng/mL; Vitamin D 25-OH, Total 25 ng/mL (30-100)
== END 2024-03-14 08:49 | disposition home or self-care (01) ==
LOC: HO.HHCL 08:48
PROVIDERS: Visit Provider Student in an Organized Health Care Education/Training Program
DX: E55.9 Vitamin D deficiency, unspecified (principal)
CPT/HCPCS: 36415; 80048; 82306

== ENCOUNTER 2024-03-24 09:27 | Outpatient (AMB) | payer OTHER, SELFPAY ==
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
[2024-03-24 09:41] VITALS: BP 126/80; PULSE 81; O2SAT 97; BMI 25.2
== END 2024-03-24 10:06 | disposition home or self-care (01) ==
PROVIDERS: PCP Internal Medicine; Visit Provider Student in an Organized Health Care Education/Training Program
DX: M54.50 Low back pain, unspecified (principal); M35.3 Polymyalgia rheumatica; M81.0 Age-related osteoporosis without current pathological fracture
CPT/HCPCS: 99214

== ENCOUNTER 2024-03-24 09:27 | Outpatient (REF) | payer OTHER, SELFPAY ==
--- NOTE | ~2024-03-24 | XR_ITS ---
EXAMINATION: XR LUMBOSACRAL SPINE WITH OBLIQUES CLINICAL INFORMATION: Low back pain COMPARISON: 04/04/2020 TECHNIQUE: AP, both oblique, and lateral views of the lumbar spine. Lateral view of the lumbosacral junction. FINDINGS: Vertebral bodies are well aligned and intervertebral discs are preserved except of mild narrowing of L5-S1 intervertebral disc space. Pedicles with mild facets arthropathy at the level of L5-S1 on the right. Soft tissues unremarkable in sacroiliac joints are normal. XR/XR lumbar spine 4V min IMPRESSION: Mild degenerative changes at the level of L5-S1
--- NOTE | ~2024-03-24 | XR_ITS ---
EXAMINATION: XR THORACIC SPINE CLINICAL INFORMATION: Back pain COMPARISON: None available. TECHNIQUE: 3 views of the thoracic spine were obtained. FINDINGS: There is no fracture or bone destruction seen and the vertebral alignment is normal. There is no disc space narrowing. There is no abnormality of the paraspinal soft tissues. XR/XR thoracic spine 3V IMPRESSION: Unremarkable examination.
== END 2024-03-24 09:28 | disposition home or self-care (01) ==
LOC: HO.XRAY 09:27
PROVIDERS: PCP Internal Medicine; Visit Provider Student in an Organized Health Care Education/Training Program
DX: M54.50 Low back pain, unspecified (principal); M35.3 Polymyalgia rheumatica; M81.0 Age-related osteoporosis without current pathological fracture
CPT/HCPCS: 72072; 72110; 99212

== ENCOUNTER 2024-04-07 11:04 | Outpatient (AMB) | payer OTHER, SELFPAY ==
[2024-04-07 11:23] VITALS: BP 144/69; PULSE 70; O2SAT 97; BMI 25.2
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
== END 2024-04-07 11:58 | disposition home or self-care (01) ==
PROVIDERS: PCP Internal Medicine; Visit Provider Registered Nurse Emergency
DX: M54.16 Radiculopathy, lumbar region (principal); M54.50 Low back pain, unspecified; M79.7 Fibromyalgia; M35.3 Polymyalgia rheumatica
CPT/HCPCS: 99204

== ENCOUNTER → 2024-04-07 11:04 | Outpatient (BNVA) | payer OTHER, SELFPAY | PROVIDERS: PCP Internal Medicine; Visit Provider Registered Nurse Emergency | DX: M54.16 Radiculopathy, lumbar region (principal); M79.7 Fibromyalgia; M35.3 Polymyalgia rheumatica; Z91.81 History of falling | CPT/HCPCS: 99202 ==

== ENCOUNTER 2024-06-27 10:12 | Outpatient (AMB) | payer OTHER, SELFPAY ==
--- NOTE | 2024-06-27 10:26 | A.OFFVIS_ITS ---
Vital Signs 06/27/24 10:30 Height 5 ft 2 in Weight 140 lb 10.479 oz BMI 25.7 BP 115/64 Blood Pressure Location Lt brachial Position Sitting Pulse 65 Pulse Source Pulse Oximeter Pulse Oximetry (%) 95 Oxygen Delivery Method Room Air Intake Visit Reasons: OA/inj/osteoporosis/cm Intake Note: Patient presents for OA/injection/Osteoporosis. Blood Bank Manager Required: Yes Blood Bank Manager Language: Candle Cutter Services: Blood Bank Manager Present Blood Bank Manager Name: Carlin [id number] Information Interpreted: non-clinical & clinical Allergies latex Allergy (Intermediate, Verified 06/27/24 10:30) Dry skin weed pollen Allergy (Intermediate, Verified 06/27/24 10:30) Anaphylaxis Medication List - Last Reconciled 06/27/24 by Rory Pacheco MD acetaminophen ER 650 mg PO TID albuterol sulfate 90 mcg/actuation inhalation atorvastatin 80 mg PO DAILY brimonidine-timolol 0.2-0.5 % (Combigan) drps ophthalmic (eye) TID budesonide-formoterol 160-4.5 mcg/actuation 2 puffs inhalation BID cholecalciferol (vitamin D3) 25 mcg PO BID gabapentin 300 mg PO BID inhalat.spacing dev,large mask (Pro Comfort Spacer-Adult Mask) As directed ipratropium-albuterol 0.5 mg-3 mg(2.5 mg base)/3 mL mL inhalation loratadine 10 mg PO DAILY PRN meclizine 25 mg PO TID montelukast 10 mg PO BEDTIME omeprazole 20 mg PO DAILY ondansetron 4 mg PO Q8H 4 days HPI Comments Details: This is a 58-year-old female with PMR and osteoporosis who presents for follow- up. She states that over the last 2-3 months she has felt electric current sensation in all 4 extremities. It is interfering with her ability to walk normally. She denies any recent trauma or illnesses. [facility] Surgical History H/O cervical spine surgery Hx of section H/O bilateral hip replacements History of eye surgery History of appendectomy Family History Father Emphysema lung Mother Hypertension Arthritis Diabetes Social History Household Members: None Alcohol intake: never Patient Tobacco Use Status: Former Tobacco user Substance Use Type: Marijuana Current occupational status: disabled Review of Systems Musc Reports numbness and Reports tingling Neuro Reports numbness and Reports tingling Physical Exam Vital Signs: Last Vital Signs Pulse 65 06/27/24 10:30 BP 115/64 06/27/24 10:30 Pulse Ox 95 06/27/24 10:30 Oxygen Delivery Method Room Air 06/27/24 10:30 BMI result Body Mass Index 25.7 Const General: cooperative, healthy appearing, in distress and anxious Nutritional Appearance: average body habitus Orientation/consciousness: patient oriented x3 Limitations: no limitations HEENT Head: Yes normocephalic and Yes atraumatic Mouth: moist mucous membranes Resp Effort & Inspection: normal respiratory effort and able to speak in complete sentences Skin General skin exam: no rashes or lesions noted Neuro Other: Patient reporting electric current in her shoulders sensation with Tinel's test bilaterally No wrist drop or footdrop bilaterally Intact position sense of toes bilaterally Patient reporting abnormal sensation of light touch in left foot dorsum General: patient oriented x3 Extrem Other: Osteoarthritic changes of both hands with no active synovitis Assessment & Plan Assessment & Plan (1) Polymyalgia rheumatica: Comment: History of PMR. prednisone was tapered off in 2021. Code(s): M35.3 - Polymyalgia rheumatica Category: Medical Plan: No recurrence of symptoms on exam (2) Osteoporosis: Comment: Dexa 05/2022- T score -3.3 in the left forearm. Prolia denied Reclast 11/2022, 03/2024 Code(s): M81.0 - Age-related osteoporosis without current pathological fracture Category: Medical Qualifiers: Osteoporosis type: age-related Presence of current pathological fracture: without current pathological fracture Qualified Code(s): M81.0 - Age- related osteoporosis without current pathological fracture Plan: DEXA with osteoporosis T score -3.3 in the left forearm. She received 2 Reclast infusions. Most recent was 03/2024. Plan to repeat DEXA spring (3) Numbness and tingling in both hands: Code(s): R20.0 - Anesthesia of skin; R20.2 - Paresthesia of skin Category: Medical Plan: Patient presenting with 2-3 months history of tingling and numbness sensation all 4 extremities. I will order EMG/NCV of all 4 extremities Follow-up in 3 months Plan I spent 26 minutes reviewing patient's chart, evaluating patient, ordering diagnostic workup counseling patient and documenting in the chart Orders: Orders NE electromyogram (EMG) Today R20.0 - Anesthesia of skin, R20.2 - Paresthesia of skin Coding Level of Care Code Est Pt Level 4 (39314) Diagnoses Polymyalgia rheumatica M35.3 Age-related osteoporosis without current pathological fracture M81.0 Osteoporosis type: age-related Presence of current pathological fracture: without current pathological fracture Numbness and tingling in both hands R20.0; R20.2
[2024-06-27 10:30] VITALS: BP 115/64; PULSE 65; O2SAT 95; BMI 25.7
== END 2024-06-27 11:01 | disposition home or self-care (01) ==
PROVIDERS: PCP Internal Medicine; Visit Provider Student in an Organized Health Care Education/Training Program
DX: M35.3 Polymyalgia rheumatica (principal); M81.0 Age-related osteoporosis without current pathological fracture; R20.0 Anesthesia of skin; R20.2 Paresthesia of skin
CPT/HCPCS: 99214

== ENCOUNTER → 2024-06-27 10:12 | Outpatient (BNVA) | payer OTHER, SELFPAY | PROVIDERS: PCP Internal Medicine; Visit Provider Student in an Organized Health Care Education/Training Program | DX: M81.0 Age-related osteoporosis without current pathological fracture (principal); M35.3 Polymyalgia rheumatica; R20.0 Anesthesia of skin; R20.2 Paresthesia of skin | CPT/HCPCS: 99212 ==

== ENCOUNTER 2024-08-19 14:36 | Outpatient (REF) | payer OTHER, SELFPAY ==
--- NOTE | 2024-08-19 14:40 | EMG_ITS ---
Chief complaint: Bilateral hand and feet numbness Reason for referral: Evaluate for neuropathy Referred by: Dr. Pacheco Procedure done: Bilateral upper extremities and lower extremity NCS/EMG Precautions and/or limitations: Previous cervical spine surgery The limb temperature was monitored continuously and remained between 32-36 degrees C during the performance of the NCS. Nerve Conduction Studies Anti Sensory Summary Table ?Stim Site NR Onset (ms) Norm Onset (ms) Peak (ms) Norm Peak (ms) O-P Amp (?V) Norm O-P Amp Site1 Site2 Delta-0 (ms) Dist (cm) Manolo (m/s) Norm Manolo (m/s) Left Median Anti Sensory (2nd Digit) Wrist ? 3.6 4.5 <3.6 9.3 >10 Wrist 2nd Digit 3.6 14.0 39 Right Median Anti Sensory (2nd Digit) Wrist ? 2.3 4.1 <3.6 1.1 >10 Wrist 2nd Digit 2.3 14.0 61 Left Sural Anti Sensory (Lat Mall) Calf ? 2.3 3.7 <4.0 12.7 >5.0 Calf Lat Mall 2.3 14.0 61 Right Sural Anti Sensory (Lat Mall) Calf ? 2.7 3.6 <4.0 12.2 >5.0 Calf Lat Mall 2.7 14.0 52 Left Ulnar Anti Sensory (5th Digit) Wrist ? 2.4 3.2 <3.7 25.4 >15.0 Wrist 5th Digit 2.4 14.0 58 Right Ulnar Anti Sensory (5th Digit) Wrist ? 2.4 3.3 <3.7 21.1 >15.0 Wrist 5th Digit 2.4 14.0 58 Motor Summary Table ?Stim Site NR Onset (ms) Norm Onset (ms) O-P Amp (mV) Norm O-P Amp iAmp (mV) Amp (1st) (%) Site1 Site2 Delta-0 (ms) Dist (cm) Manolo (m/s) Norm Manolo (m/s) Left Median Motor (Abd Poll Brev) Wrist ? 5.3 <3.9 7.9 >4.5 9.9 100.0 Elbow Wrist 3.8 21.5 57 >45 Elbow ? 9.1 8.7 10.7 110.1 Right Median Motor (Abd Poll Brev) Wrist ? 5.5 <3.9 8.7 >4.5 10.0 100.0 Elbow Wrist 3.9 19.0 49 >45 Elbow ? 9.4 8.0 9.5 92.0 Right Peroneal Motor (Ext Dig Brev) Ankle ? 3.8 <4.0 7.7 >2.5 9.2 100.0 Ankle Ext Dig Brev 3.8 0.0 B Fib ? 9.5 7.0 8.7 90.9 B Fib Ankle 5.7 29.0 51 >40 Poplt ? 10.2 7.2 8.9 93.5 Poplt B Fib 0.7 4.0 57 >40 Left Tibial Motor (Abd Magana Brev) Ankle ? 3.7 <5 7.7 >2.5 11.2 100.0 Ankle Abd Magana Brev 3.7 0.0 Knee ? 12.0 6.4 8.0 83.1 Knee Ankle 8.3 34.0 41 >40 Right Tibial Motor (Abd Magana Brev) Ankle ? 2.7 <5 14.0 >2.5 18.0 100.0 Ankle Abd Magana Brev 2.7 0.0 Knee ? 10.7 9.0 12.6 64.3 Knee Ankle 8.0 36.0 45 >40 Left Ulnar Motor (Abd Dig Minimi) Wrist ? 2.9 <3.0 11.6 >5 12.9 100.0 B Elbow Wrist 3.0 17.0 57 >45 B Elbow ? 5.9 11.2 12.6 96.6 A Elbow B Elbow 1.6 10.0 63 >45 A Elbow ? 7.5 10.7 12.1 92.2 Right Ulnar Motor (Abd Dig Minimi) Wrist ? 2.5 <3.0 11.1 >5 12.4 100.0 B Elbow Wrist 3.2 19.5 61 >45 B Elbow ? 5.7 10.5 11.8 94.6 A Elbow B Elbow 1.2 10.0 83 >45 A Elbow ? 6.9 10.3 11.7 92.8 EMG ?Side Muscle Nerve Root Ins Act Fibs Psw Amp Dur Poly Recrt Int Pat Comment Right 1stDorInt Ulnar C8-T1 Nml Nml Nml Nml Nml 0 Nml Complete Right FlexCarRad Median C6-7 Nml Nml Nml Nml Nml 0 Nml Complete Right Biceps Musculocut C5-6 Nml Nml Nml Nml Nml 0 Nml Complete Right Triceps Radial C6-7-8 Nml Nml Nml Nml Nml 0 Nml Complete Right Deltoid Axillary C5-6 Nml Nml Nml Nml Nml 0 Nml Complete Left 1stDorInt Ulnar C8-T1 Nml Nml Nml Nml Nml 0 Nml Complete Left FlexCarRad Median C6-7 Nml Nml Nml Nml Nml 0 Nml Complete Left Biceps Musculocut C5-6 Nml Nml Nml Nml Nml 0 Nml Complete Left Triceps Radial C6-7-8 Nml Nml Nml Nml Nml 0 Nml Complete Left Deltoid Axillary C5-6 Nml Nml Nml Nml Nml 0 Nml Complete Right AbdHallucis MedPlantar S1-2 Nml Nml Nml Nml Nml 0 Nml Complete Right AntTibialis Dp Br Peron L4-5 Nml Nml Nml Nml Nml 0 Nml Complete Right PostTibialis Tibial L5, S1 Nml Nml Nml Nml Nml 0 Nml Complete Right MedGastroc Tibial S1-2 Nml Nml Nml Nml Nml 0 Nml Complete Right VastusMed Femoral L2-4 Nml Nml Nml Nml Nml 0 Nml Complete Left AbdHallucis MedPlantar S1-2 Nml Nml Nml Nml Nml 0 Nml Complete Left AntTibialis Dp Br Peron L4-5 Nml Nml Nml Nml Nml 0 Nml Complete Left PostTibialis Tibial L5, S1 Nml Nml Nml Nml Nml 0 Nml Complete Left MedGastroc Tibial S1-2 Nml Nml Nml Nml Nml 0 Nml Complete Left VastusMed Femoral L2-4 Nml Nml Nml Nml Nml 0 Nml Complete FINDINGS: Bilateral median motor nerves showed prolonged distal latency, normal amplitude and normal conduction velocity. Bilateral median sensory nerves showed prolonged peak latency, and small amplitude. Left median sensory nerve showed peak latency. All other nerves tested were within normal. Concentric needle EMG was performed in selected muscles of the bilateral upper extremities and lower extremities. Study did not reveal signs of electric abnormalities as shown in the table above. IMPRESSION: 1. This is an abnormal study. 2. There is electrodiagnostic evidence for bilateral moderate-severe median neuropathy at the wrist, consistent with carpal tunnel syndrome. 3. There is no electrodiagnostic evidence for ulnar neuropathy, brachial plexopathy, cervical radiculopathy, peroneal neuropathy, tibial neuropathy. lumbosacral plexopathy, lumbar radiculopathy, or peripheral neuropathy. Thank you for your kind referral. Mesha Harding MD, SHONA Board Certified, [place] [employer] and Rehabilitation (ABPMR) Board Certified, [place] Board [employer] Electrodiagnostic Medicine (ABEM) CODIN [id number] x 4 MTDD
== END 2024-08-19 14:37 | disposition home or self-care (01) ==
LOC: HO.NEURO 14:36
PROVIDERS: PCP Internal Medicine; Visit Provider Student in an Organized Health Care Education/Training Program
DX: R20.0 Anesthesia of skin (principal); R20.2 Paresthesia of skin
CPT/HCPCS: 95886; 95913

== ENCOUNTER → 2024-08-19 14:40 | Outpatient (BNV) | payer OTHER, SELFPAY | PROVIDERS: PCP Internal Medicine; Visit Provider Physical Medicine & Rehabilitation | DX: G56.03 Carpal tunnel syndrome, bilateral upper limbs (principal); R20.0 Anesthesia of skin; R20.2 Paresthesia of skin | CPT/HCPCS: 95886; 95913 ==

== ENCOUNTER 2024-09-27 10:38 | Outpatient (AMB) | payer OTHER, SELFPAY ==
[2024-09-27 10:44] VITALS: BMI 25.6
--- NOTE | 2024-09-27 10:44 | A.OFFVIS_ITS ---
Vital Signs 09/27/24 10:44 Height 5 ft 2 in Weight 140 lb BMI 25.6 Intake Visit Reasons: New prob- B/L Carpal Tunnel Intake Note: Moon 59 yr old female presents today for a new problem visit for bilateral hand CTS. States her right is worse. Patient explains she has CTS since May. She has a hard time sleeping, and grabbing objects. States she drops objects due to weakness and numbness. 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 States she has had multiple falls many times but no fractures in hands. She had a EMG done and would like to discuss surgical intervention for her worse hand which is her right hand . IMPRESSION: 1. This is an abnormal study. 2. There is electrodiagnostic evidence for bilateral moderate-severe median neuropathy at the wrist, consistent with carpal tunnel syndrome. 3. There is no electrodiagnostic evidence for ulnar neuropathy, brachial plexopathy, cervical radiculopathy, peroneal neuropathy, tibial neuropathy. lumbosacral plexopathy, lumbar radiculopathy, or peripheral neuropathy. Childcare Administrator Name: Carmina [id number] Allergies latex Allergy (Intermediate, Verified 09/27/24 10:57) Dry skin weed pollen Allergy (Intermediate, Verified 09/27/24 10:57) Anaphylaxis HPI HPI New prob- B/L Carpal Tunnel: Details: Moon is a 59 year old right hand dominant Kiswahili speaking woman who presents for a NCS review of her bilateral hand numbness, R>L. She complains of numbness in her bilateral hands, R>L. Her numbness is primarily in the median nerve distribution. Symptoms intermittent, but daily, worse at night or with activities. She says this has been worsening for the last 5 months. 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 She also complains of stiffness & pain in her hands. She says she has Rheumatoid arthritis, but denies any medication for this except for Gabapentin. She has a Hx of Fibromyalgia, PMR, COPD, and pulmonary nodules. She gets Reclast infusions for her Osteoporosis [facility] Surgical History H/O cervical spine surgery Hx of section H/O bilateral hip replacements History of eye surgery History of appendectomy Family History Father Emphysema lung Mother Hypertension Arthritis Diabetes Social History Household Members: None Alcohol intake: never Patient Tobacco Use Status: Former Tobacco user Substance Use Type: Marijuana Current occupational status: disabled Review of Systems Const All systems reviewed & are unremarkable except as noted in HPI and below Physical Exam Vital Signs: BMI result Body Mass Index 25.6 Const General: cooperative, healthy appearing and no acute distress Orientation/consciousness: patient oriented x3 HEENT Head: Yes normocephalic and Yes atraumatic Eyes EOM: EOMs intact bilaterally Resp Effort & Inspection: normal respiratory effort and able to speak in complete sentences Cardio Jugular venous distension: no JVD Skin General skin exam: turgor normal Rashes: no rashes Neuro General: patient oriented x3 Extrem Other: Evaluation of Bilateral Upper Extremity: The patient is alert, oriented, and in no acute distress Neuro: Median, Ulnar, Radial nerves motor and sensory intact No thenar or intrinsic wasting Good APB muscle belly firing and good finger cross Vascular: Cap refill brisk ROM: She can make a fist and extend all her digits No locking or catching Skin: No lacerations or abrasions. General: No Ecchymosis. No Erythema or evidence of infection. Nerve Conduction Study: IMPRESSION: 1. This is an abnormal study. 2. There is electrodiagnostic evidence for bilateral moderate-severe median neuropathy at the wrist, consistent with carpal tunnel syndrome. 3. There is no electrodiagnostic evidence for ulnar neuropathy, brachial plexopathy, cervical radiculopathy, peroneal neuropathy, tibial neuropathy. lumbosacral plexopathy, lumbar radiculopathy, or peripheral neuropathy. Mesha Harding MD, SHONA 08/19/24 Psych Appearance: grossly normal Affect: normal affect Attitude: cooperative Assessment & Plan Assessment & Plan (1) Bilateral carpal tunnel syndrome: Code(s): G56.03 - Carpal tunnel syndrome, bilateral upper limbs Category: Medical (2) Fibromyalgia: Code(s): M79.7 - Fibromyalgia Category: Medical (3) Polymyalgia rheumatica: Comment: History of PMR. prednisone was tapered off in 2021. Code(s): M35.3 - Polymyalgia rheumatica Category: Medical Plan Assessment & Plan: 1. Right carpal tunnel syndrome, moderate-severe Symptoms intermittent, but daily, worse at night 2. Left carpal tunnel syndrome, moderate-severe Symptoms intermittent, but daily, worse at night I educated her about this condition I discussed operative and non-operative treatment options The patient would like to proceed with surgery, beginning with the right side We can discuss treatment for her left side when she has recovered from surgery The risks and benefits of operative treatment were discussed with the patient and the patient wishes to proceed with surgery. These risks include, but are not limited to risk of damage to blood vessels, nerves, tendons, infection, recurrence, incomplete relief of preoperative symptoms, persistent pain, possible need for further surgery and the risks associated with regional blocks and anesthesia. The plan is to take the patient to the operating room sometime in the next few weeks for the following procedures: 1. Right carpal tunnel release, under local All of the preoperative paperwork including the consent was reviewed today. All the patient's questions were answered. The patient understands that they will be contacted by our lithographic press operator apprentice soon to schedule this procedure She denies Diabetes, blood thinners, asthma, heart, lung, kidney issues She has a Hx of COPD, pulmonary nodules, and Fibromyalgia Scribed for Hawa Nogueira MD by Petey Beatty, medical charge entry specialist, on 09/27/24 at 11:00 AM, EST. Coding Level of Care Code New Pt Level 4 (45564) Diagnoses Bilateral carpal tunnel syndrome G56.03 Fibromyalgia M79.7 Polymyalgia rheumatica M35.3
--- OUTSIDE RECORDS SUMMARY | 2024-09-27 11:52 | XMS_ITS | Encounter Summary ---
Author Organization [facility] Address [address] [place] [address] Care Team Providers Care Track Coach Name Role Phone Logan Snyder MD Primary Care Provider [phone] Reason for Visit * Reason Comments Asthma Encounter Details Date Type Department Care Team ([facility] Contact Info) Description 09/02/2024 9:30 AM EST Office Visit Pulmonolgy - [place] [address] [phone] Tara Vasquez MD [address] [phone] COPD with asthma ([facility]) (Primary Dx); Loud snoring; Ex-smoker; Lung nodules Social History Tobacco Use Types Packs/Day Years Used Date Smoking Tobacco: Former Cigarettes Smokeless Tobacco: Never Alcohol Use Standard Drinks/Week Comments Not Currently 0 (1 standard drink = 0.6 oz pur e alcohol) Comments Unknown Sex and Gender Information Value Date Recorded Sex Assigned at Not on file Legal Sex Female 3:50 AM EST Gender Identity Not on file Sexual Orientation Not on file documented as of this encounter Last Filed Vital Signs Vital Sign Reading Time Taken Comments Blood Pressure 158/72 09/02/2024 9:44 AM EST Pulse 64 09/02/2024 9:44 AM EST Temperature 35.9 ??C (96.6 ??F) 09/02/2024 9:44 AM ES T Respiratory Rate 20 09/02/2024 9:44 AM EST Oxygen Saturation 99% 09/02/2024 9:44 AM EST Inhaled Oxygen Concentration - - Weight 62.3 kg (137 lb 6.4 oz) 09/02/2024 9:44 A M EST Height - - Body Mass Index 25.98 07/29/2024 11:36 AM EST documented in this encounter Progress Notes * Tara Vasquez MD - 09/02/2024 9:30 AM EST ADULT PULMONARY Followup CHIEF COMPLAINT or REASON FOR CONSULTATION: No chief complaint on file. Last seen 02/11/2024 HISTORY OF PRESENT ILLNESS: Mihai #[id number]. Moon Cuello is a 58 y.o. old, ex smoker @ 20+ ppy, Female h/o COPD w/ asthma, allergic rhinitis, HLD, GERD, and fibromyalgia/PMR. COVID vaccinations: Pfizer Ex Smoker: early teen to age 54. 0.5 + pack daily, @ 20+ ppy. Occupation: Disability. No occupational chemical or fume exposure. No TB or abestosis exposure. No pets. FH: Father w/ COPD & lung cancer. Sister w/ lupus. One sister past w/ breast cancer. ACT: Patient can't focus with severe dizzness. Since last seen: -About 2.5 weeks ago, patient contracted upper respiratory infection, coughing productive of clear phlegm wheezing, mild chill, increased congestion with increased thirst and polyuria. Patient with sick contact. Patient was supposed to be seen at urgent clinic, due to long lines, patient cannot wait, and left, since I have a appointment today.. -When patient arrived, patient was very unsteady on feet and almost fainted. Blood sugar 143. Bloodpressure 158/72 and heart rate 64. Per patient, daughter dropped her off. Patient offered to call EMS. Patient stated that she wants her daughter to drive her over. It appeared that there was a commotion between her and her daughter. We contacted, daughterChaparro Gomez, who inform us she cannot tack picker the patient at this moment, and that we should call 911. 911 was contacted, for ambulance transport. While awaiting, for ambulance transport, patient stated that she would prefer someone else to escort her. I was informed by staff, patient had left. -CT chest 06/09/2024 RUL 5 mm nodule, RUL 2 mm nodule, no gross adenopathy and evidence of emphysema. REVIEW OF SYSTEMS: Review of Systems Constitutional: Negative for chills, decreased appetite, diaphoresis, fever, malaise/fatigue and night sweats. HENT: Negative for congestion. Cardiovascular: Positive for dyspnea on exertion. Negative for chest pain, irregular heartbeat and leg swelling. Respiratory: Positive for snoring. Negative for cough, hemoptysis, shortness of breath, sputum production and wheezing. Endocrine: Negative for cold intolerance and heat intolerance. Skin: Negative for rash. Gastrointestinal: Negative for abdominal pain, constipation, diarrhea and dysphagia. Genitourinary: Negative for dysuria. ALLERGIES: Allergies Allergen Reactions Latex Other Seasonal Allergies ACTIVE MEDICATIONS: No outpatient medications have been marked as taking for the 09/02/24 encounter (Appointment) with Tara Vasquez MD. PROVIDER ATTESTS THAT THE MEDICATION LIST WAS OBTAINED, REVIEWED AND UPDATED. PAST MEDICAL HISTORY: Patient Active Problem List Diagnosis Date Noted Abnormal stress test 07/06/2024 Chest pain 07/06/2024 SOB (shortness of breath) 07/06/2024 GERD (gastroesophageal reflux disease) 05/17/2024 Glaucoma 05/17/2024 Tobacco use 05/17/2024 Polymyalgia rheumatica (CMS/HCC) 05/17/2024 Chronic neck pain with history of cervical spinal surgery 05/17/2024 Status post total hip replacement, right 02/06/2021 Fibromyalgia 11/19/2020 Primary osteoarthritis of both hips 11/19/2020 Primary osteoarthritis of both knees 11/19/2020 ASCUS with positive high risk HPV cervical 10/17/2019 Depression 09/22/2017 Allergic rhinitis 09/22/2017 Eczema 09/22/2017 Asthma 09/22/2017 Memory impairment 09/22/2017 Internal hemorrhoids 09/03/2017 Hearing loss 12/11/2015 COPD (chronic obstructive pulmonary disease) ([facility]) 05/30/2014 Multiple pulmonary nodules 01/23/2014 Hyperlipidemia 04/12/2013 Osteoarthritis 04/12/2013 No past surgical history on file. No past surgical history on file. FAMILY HISTORY: Family History Problem Relation Name Age of Onset Hypertension Mother Lung cancer Father SOCIAL HISTORY Social History Socioeconomic History Marital status: Single Spouse name: Not on file Number of children: Not on file Years of education: Not on file Highest education level: Not on file Occupational History Not on file Tobacco Use Smoking status: Former Types: Cigarettes Smokeless tobacco: Never Substance and Sexual Activity Alcohol use: Not Currently Drug use: Not Currently Sexual activity: Not on file Other Topics Concern Not on file Social History Narrative Not on file IMMUNIZATION: Immunization History Administered Date(s) Administered Hepatitis B (Brfkzhs-Q-Exnsa, Recombivax HB-Adult) 19yo and older 08/03/2013 Influenza Quadravalent, MDCK, 0.5ml, preservative free (Flucelvax) 6mo and older 10/17/2019, 08/13/2020, 06/03/2021 Influenza trivalent, 0.5mL, preservative free (Fluarix; FluLaval; Fluzone) ages 6mo and older (Afluria) 3 years and older 05/09/2016, 04/10/2017 Influenza trivalent, with preservative (Fluzone; Afluria) 6mo and older 07/13/2018 Pfizer SARS-CoV-2 COVID-19, mRNA, LNP-S, preservative free 07/04/2021 Pneumococcal conjugate 13 valent (Prevnar 13, PCV13) 2mo and older 01/08/2016 Pneumococcal polysaccharide 23 valent (Pneumovax 23) 2yo and older 03/28/2014, 03/07/2019 Tdap Tetanus diptheria acellular pertussis (Boostrix; Adacel) 7yo and older 08/03/2013, 07/03/2016 PHYSICAL EXAM: Visit Vitals Smoking Status Former Physical Exam Constitutional: General: She is not in acute distress. Appearance: Normal appearance. She is ill-appearing. HENT: Head: Normocephalic and atraumatic. Nose: Nose normal. No congestion or rhinorrhea. Mouth/Throat: Mouth: Mucous membranes are moist. Pharynx: No oropharyngeal exudate or posterior oropharyngeal erythema. Eyes: Pupils: Pupils are equal, round, and reactive to light. Cardiovascular: Rate and Rhythm: Normal rate and regular rhythm. Pulses: Normal pulses. Heart sounds: No murmur heard. Pulmonary: Effort: Pulmonary effort is normal. No respiratory distress. Breath sounds: No stridor. Wheezing present. No rhonchi or rales. Abdominal: General: Bowel sounds are normal. Palpations: Abdomen is soft. Tenderness: There is no abdominal tenderness. Musculoskeletal: Right lower leg: No edema. Left lower leg: No edema. Neurological: Mental Status: She is alert. Diagnostic: CURRENTS ICD-10 PULMONARY DIAGNOSIS 1. COPD with asthma (CMS/HCC) 2. Loud snoring 3. Ex-smoker 4. Lung nodules ASSESSMENT/PLAN: 1. Viral syndrome in patient now with unsteady feet and dizziness, and the patient with DM. -As above. -Family contacted. -Unable to reach patient. -I do believe patient be a little reserved in the higher level care for immediate investigation andcare. 2. COPD w/ asthma. -Pathophysiology of asthma/COPD/mixed obstructive lung disease were discussed. Treatment options ofthe various inhalers, along with techniques of use, and side effects were discussed. Maintenace of care of obstructive lung disease health such as various vaccinations, smoking cessation & avoidance of chemicals/fumes/inhalants were discussed. All questions were answered. -Continue current Symbicort 160/4.5, 2 puff twice a day. -Continue current albuterol MDI, 2 puff every 6 as needed. -Last PFT 02/11/2024. 2. Lung nodules largest being 5 mm, in the ex-smoker @ 20+ ppy. -Patient qualify for low-dose screening chest CAT scan. Consultation of risks and benefits, potential findings, and course of follow-up of LDSCT were provided. And in cases where patient is still smoking or with secondhand smoke exposure, smoking cessation was discussed. All questions answered. -Await for low-dose screening CAT scan of the chest May 2025. 3. Loud snoring. -Patient declined sleep study. -Follow up with Logan Snyder MD for the other co-morbilities. RETURN TO THE NEXT VISIT: Based on physical exam, symptomatology, tests requested and baseline pulmonary evaluation/disease, I instructed the patient to come back to see me in 2 months for reevaluation after the test has beendone or earlier if the patient needed. Thanks Logan Snyder MD for allowing me to have the opportunity to assist in the care of this patient. This chart was generated by the [employer] system and [employer] speech recognition software and may contain inherent errors or omissions not intended by the user. Grammatical errors, random word insertions, deletions, pronoun errors and incomplete sentences are occasional consequences of this technologydue to software limitations. Not all errors are caught or corrected. If there are questions or concerns about the content of this note or information contained within the body of this dictation they should be addressed directly with the author for clarification. @ELECSIG@ documented in this encounter Plan of Treatment Not on file documented as of this encounter Visit Diagnoses Diagnosis COPD with asthma ([facility])- Primary Loud snoring Ex-smoker Personal history of tobacco use, presenting hazards to health Lung nodules Other diseases of lung, not elsewhere classified documented in this encounter Care Teams Track Coach Relationship Specialty Start Date End Date Logan Snyder MD [address] [place] [id number] PCP - General Internal Medicine 06/17/21 documented as of this encounter
--- OUTSIDE RECORDS SUMMARY | 2024-09-27 11:54 | XMS_ITS | Encounter Summary ---
Author Organization [facility] Address [address] [place] [address] Care Team Providers Care Fruit Peeler Name Role Phone Logan Snyder MD Primary Care Provider [phone] Reason for Visit * Reason Comments Eye Problem Blurred vision Encounter Details Date Type Department Care Team ([facility] st Contact Info) Description 09/02/2024 11:03 AM EST - 09/02/2024 1:52 PM EST Emergency [facility] Emergency [address] [place] [address] Discharge Disposition: Home or Self Care Social History Tobacco Use Types Packs/Day Years [...] Sign Reading Time Taken Comments Blood Pressure 140/94 09/02/2024 10:15 AM EST Pulse 71 09/02/2024 10:15 AM EST Temperature 36.6 ??C (97.9 ??F) 09/02/2024 10:[address] Respiratory Rate 22 09/02/2024 10:15 AM EST Oxygen Saturation 99% 09/02/2024 10:15 AM EST Inhaled Oxygen Concentration - - Weight 62.3 kg (137 lb 6.4 oz) 09/02/2024 10:15 AM EST Height 157.5 cm (5' 2 ) 09/02/2024 10:15 AM EST Body Mass Index 25.13 09/02/2024 10:15 AM EST documented in this encounter Medications at Time of Discharge acetaminophen (TYLENOL 8 HOUR) 650 mg 8 hr tablet TAKE 1 TABLET BY MOUTH EVERY 8 HOURS NEEDED FOR PAIN. 60 tablet 07/25/2024 albuterol HFA (PROAIR HFA ; PROVENTIL HFA ; VENTOLIN HFA) 90 mcg/actuation inhaler Inhale 2 puffs by mouth. 09/28/2023 atorvastatin (LIPITOR) 80 mg tablet TAKE 1 TABLET BY MOUTH AT BEDTIME. 90 tablet 07/25/2024 budesonide-formo teroL (SYMBICORT) 160-4.5 mcg/actuation inhaler Inhale 2 puffs by mouth. 02/09/2023 gabapentin (NEURONTIN) 300 mg capsule Take 1 capsule (300 mg total) by mouth. 05/20/2022 ibuprofen (ADVIL,MOTRIN) 600 mg tablet Take 1 tablet (600 mg total) by mouth every 6 (six) hours if needed for moderate pain. 60 tablet 07/25/2024 loratadine (CLARITIN) 10 mg tablet Take 1 tablet (10 mg total) by mouth 1 (one) time each day. 90 tablet 07/29/2024 prednisoLONE acetate (PRED FORTE) 1 % ophthalmic suspension 02/23/2023 omeprazole (PriLOSEC) [address] capsule Take 1 capsule (20 mg total) by mouth. 08/27/2022 09/14/2024 documented as of this encounter Discharge Disposition Disposition Code Departure Means Destination Comment s Home or Self Care documented in this encounter Progress Notes * Courtney Holm RN - 09/02/2024 10:13 AM EST PT STATES SHE WAS IN AN APPOINTMENT AND HER VISION STARTED TO GET BLURRY, SHE BELIEVES IT MAY BE R/T HER BP. WHEN SHE WAS WITH HER PULMONARY DOCTOR THEY TOLD HER TO GO TO THE ER BECAUSE THEY HEARD SOMETHING IN MY LUNGS documented in this encounter Plan of Treatment Not on file documented as of this encounter Procedures Procedure Name Priority Date/Time Associated Diagnosis Comments CBC WITH AUTO DIFFERENTIAL STAT 09/02/2024 10:47 AM EST CBC AND DIFFERENTIAL STAT 09/02/2024 10:47 AM EST BASIC METABOLIC PANEL STAT 09/02/2024 10:47 AM EST ECG 12-LEAD STAT 09/02/2024 10:43 AM EST documented in this encounter Results * (ABNORMAL) CBC auto differential (09/02/2024 10:47 AM EST) [facility] WBC 6.3 4.8 - 10.8 K/mcL LAB HEMETOLOGY METHOD 09/02/2024 11:40 AM [facility] RBC 4.70 3.80 - 4.80 M/mcL LAB HEMETOLOGY METHOD 09/02/2024 11:40 AM [facility] Hemoglobin 13.4 11.5 - 16.0 g/dL LAB HEMETOLOGY METHOD 09/02/2024 11:40 AM [facility] Hematocrit 42.5 35.0 - 47.0 % LAB HEMETOLOGY METHOD 09/02/2024 11:40 AM [facility] MCV 90.0 79.0 - 98.0 FL LAB HEMETOLOGY METHOD 09/02/2024 11:40 AM [facility] MCH 28.4 27.0 - 32.0 pcg LAB HEMETOLOGY METHOD 09/02/2024 11:40 AM [facility] MCHC 31.5(L) 32.0 - 37.0 g/dL LAB HEMETOLOGY METHOD 09/02/2024 11:40 AM [facility] RDW 13.0 11.0 - 15.0 % LAB HEMETOLOGY METHOD 09/02/2024 11:40 AM [facility] Platelets 245 130 - 400 K/mcL LAB HEMETOLOGY METHOD 09/02/2024 11:40 AM [facility] MPV 10.3 7.0 - 11.0 FL LAB HEMETOLOGY METHOD 09/02/2024 11:40 AM [facility] NRBC 0.0 <1.0 % LAB HEMETOLOGY METHOD 09/02/2024 11:40 AM [facility] NRBC Absolute 0.00 <0.10 K/mcL LAB HEMETOLOGY METHOD 09/02/2024 11:40 AM [facility] Neutrophils Relative 62.2 % LAB HEMETOLOGY METHOD 09/02/2024 11:40 AM [facility] Lymphocytes Relative 27.5 % LAB HEMETOLOGY METHOD 09/02/2024 11:40 AM [facility] Monocytes Relative 9.0 % LAB HEMETOLOGY METHOD 09/02/2024 11:40 AM [facility] Eosinophils Relative 0.5 % LAB HEMETOLOGY METHOD 09/02/2024 11:40 AM [facility] Basophils Relative 0.6 % LAB HEMETOLOGY METHOD 09/02/2024 11:40 AM [facility] Immature Granulocytes Relative 0.2 % LAB HEMETOLOGY METHOD 09/02/2024 11:40 AM [facility] Neutrophils Absolute 3.94 1.50 - 7.00 K/mcL LAB HEMETOLOGY METHOD 09/02/2024 11:40 AM [facility] Lymphocytes Absolute 1.74 1.00 - 5.00 K/mcL LAB HEMETOLOGY METHOD 09/02/2024 11:40 AM [facility] Monocytes Absolute 0.57 0.20 - 1.00 K/mcL LAB HEMETOLOGY METHOD 09/02/2024 11:40 AM [facility] Eosinophils Absolute 0.03 0.00 - 0.50 K/mcL LAB HEMETOLOGY METHOD 09/02/2024 11:40 AM EST [facility] Basophils Absolute 0.04 0.00 - 0.20 K/mcL LAB HEMETOLOGY METHOD 09/02/2024 11:40 AM EST [facility] Immature Granulocytes Absolute 0.01 0.00 - 0.03 K/mcL LAB HEMETOLOGY METHOD 09/02/2024 11:40 AM [facility] Blood Venous blood specimen / Unknown Venipuncture / Unknown 09/02/2024 10:47 AM EST 09/02/2024 11:27 AM EST us Kyler Dunn MD LAB BLOOD ORDERABLES Final Result [facility] [address] [place] [address], [place] [phone] * Basic metabolic panel (09/02/2024 10:47 AM EST) Sodium 137 133 - 145 mmol/L LAB CHEMISTRY METHOD 09/02/2024 11:48 AM [facility] Potassium 4.5 3.5 - 5.5 mmol/L LAB CHEMISTRY METHOD 09/02/2024 11:48 AM [facility] Chloride 107 96 - 110 mmol/L LAB CHEMISTRY METHOD 09/02/2024 11:48 AM [facility] CO2 27 21 - 32 mmol/L LAB CHEMISTRY METHOD 09/02/2024 11:48 AM [facility] Anion Gap 3 3 - 11 LAB CHEMISTRY METHOD 09/02/2024 11:48 AM [facility] Glucose 100 70 - 100 mg/dL LAB CHEMISTRY METHOD 09/02/2024 11:48 AM [facility] BUN 14 5 - 25 mg/dL LAB CHEMISTRY METHOD 09/02/2024 11:48 AM [facility] Creatinine 0.75 0.50 - 1.10 mg/dL LAB CHEMISTRY METHOD 09/02/2024 11:48 AM EST [facility] eGFR 91 >=60 mL/min/1. 73m2 LAB CHEMISTRY METHOD 09/02/2024 11:48 AM EST [facility] Comment:Calculation based on the??Chronic Kidney Disease Epidemiology Collaboration (CKD-EPI) equation refit??without adjustment for race. BUN/Creatinine Ratio 18.7 LAB CHEMISTRY METHOD 09/02/2024 11:48 AM EST [facility] Calcium 9.5 8.5 - 10.5 mg/dL LAB CHEMISTRY METHOD 09/02/2024 11:48 AM EST [facility] Blood Venous blood specimen / Unknown Venipuncture / Unknown 09/02/2024 10:47 AM EST 09/02/2024 11:27 AM EST Kyler Dunn MD LAB BLOOD ORDERABLES Final Result [facility] [address] [place] [address], [place] [phone] * ECG 12 lead (09/02/2024 10:43 AM EST) Ventricular Rate ECG 57 BPM GEMUSE Atrial Rate 57 BPM GEMUSE P-R Interval 130 ms GEMUSE QRS Duration 74 ms GEMUSE Q-T Interval 460 ms GEMUSE QTc 447 ms GEMUSE P Wave [place] 72 degrees GEMUSE R [place] 23 degrees GEMUSE T [place] 30 degrees GEMUSE ECG Interpretation Sinus bradycardia Possible Left atrial enlargement Borderline ECG When compared with ECG of 07-JUL-2024 08:22, No significant change was found Confirmed by LIMA VYAS ([id number]) on 09/02/2024 5:36:23 PM GEMUSE 09/02/2024 10:4 3 AM EST 09/02/2024 5:36 PM EST Kyler Dunn MD ECG ORDERABLES Final Resul t GEMUSE documented in this encounter Visit Diagnoses Not on filedocumented in this encounter Care Teams Fruit Peeler Relationship Specialty Start Date End Date Logan Snyder MD [address] [place] [id number] PCP - General Internal Medicine 06/17/21 documented as of this encounter
--- OUTSIDE RECORDS SUMMARY | 2024-09-27 11:54 | XMS_ITS | Clinical Summary ---
Author Organization [facility] Address [address] [place] [address] Care Team Providers Care Cigarette Making Machine Hopper Feeder Name Role Phone Shruti Morales DO Primary Care P rovider Social History Tobacco Use Types Packs/Day Years Used Date Smoking Tobacco: Never Assessed Sex and Gender Information Value Date Recorded Sex Assigned at Not on file Gender Identity Not on file Sexual Orientation Not on file Plan of Treatment Health Maintenance Due Date Last Done Comments Hepatitis C Screening 1965 COVID-19 Vaccine (#1) 03/09/1964 Depression Screening 1975 Preventative Health Evaluation 1981 Cervical Cancer Screening (Pap Smear) 1984 Colon Cancer Screening (Colonoscopy) 2008 Breast Cancer Screening (Mammogram) 2013 Shingrix-Zoster Vaccine (1 o f 2) 2013 DTap / Tdap / Td (2 - Td or Tdap) 08/03/2023 08/03/2013 Influenza Vaccine (#1) 2024 , 10/17/2019, 07/13/2018 RSV Adult > 60+ Yrs or (1 - 1-dose 75+ series) 2038 Pneumococcal Vaccine Aged Out 01/08/2016, 03/28/2014 No longer eligible based on patient's age to complete this topic Hepatitis B Vaccines Aged Out No long er eligible based on patient's age to complete this topic RSV Ped < 20 months Aged Out No longe r eligible based on patient's age to complete this topic Care Teams Cigarette Making Machine Hopper Feeder Relationship Specialty Start Date End Date Shruti Morales DO PCP - General Client Services Representative 05/21/20
--- OUTSIDE RECORDS SUMMARY | 2024-09-27 11:54 | XMS_ITS | Encounter Summary ---
Author Organization [facility] Address [address] [place] [address] Care Team Providers Care Room Cleaner Name Role Phone Logan Snyder MD Primary Care Provider [phone] Reason for Referral * Consultation (Routine) - Authorized Specialty Diagnoses / Procedures Referred By Sheyla hale Referred To Contact Gastroenterology Diagnoses Screening for malignant neoplasm of colon Jarad Crawford PA [address] [place] [address] Phone: tel: fax: [facility] Endoscopy [address] [place] [phone] Phone: tel: Referral ID Status Reason Start Date Expiration Date Visits Requested Visits Authorized [id number] Authorized Specialty Services Required 09/14/2024 09/14/2025 1 1 Reason for Visit * Reason Comments med review Encounter Details Date Type Department Care Team (Late st Contact Info) Description 09/14/2024 9:45 AM EST Office Visit Adult Medicine [address] [phone] Jarad Crawford PA [address] [place] [address] Screening for malignant neoplasm of colon (Primary Dx); Hyperlipidemia, unspecified hyperlipidemia type; Allergic rhinitis, unspecified seasonality, unspecified trigger; Gastroesophageal reflux disease, unspecified whether esophagitis present; Polymyalgia rheumatica ([facility]); Chronic neck pain with history of cervical spinal surgery; 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[facility]); Elevated glucose Social History Tobacco Use Types Packs/Day Years Used Date Smoking Tobacco: Former Cigarettes Smokeless Tobacco: Never Tobacco Cessation:Counseling Given: Not Answered Alcohol Use Standard Drinks/Week Comments Not Currently [...] Sign Reading Time Taken Comments Blood Pressure 126/68 09/14/2024 9:58 AM EST Pulse 78 09/14/2024 9:58 AM EST Temperature 36.2 ??C (97.1 ??F) 09/14/2024 9:58 AM ES T Respiratory Rate - - Oxygen Saturation 98% 09/14/2024 9:58 AM EST Inhaled Oxygen Concentration - - Weight 63.3 kg (139 lb 9.6 oz) 09/14/2024 9:58 A M EST Height 157.5 cm (5' 2.01 ) 09/14/2024 9:58 AM ES T Body Mass Index 25.53 09/14/2024 9:58 AM EST documented in this encounter Ordered Prescriptions Prescription Sig Dispense Quantity Refills Last Filled Start Date End Date omeprazole (PriLOSEC) [address] capsule Take 1 capsule (40 mg total) by mouth 1 (one) time each day. Do not crush or chew. 90 each 1 09/14/2024 documented in this encounter Progress Notes * GUIDO Rashid - 09/14/2024 9:45 AM ESTAddended by: JARAD CRAWFORD on: 09/26/2024 04:37 PM Modules accepted: Orders * GUIDO Rashid - 09/14/2024 9:45 AM EST CHIEF COMPLAINT: med review IDENTIFIER: Moon Cuello is a 59 y.o. old female. HPI: Patient is a 59-year-old female who presents to the office today for medication review. Swazi interpretation is provided via video egg processor Alyssa, #[id number]. Hyperlipidemia: Last lipid panel from 01/2024 shows LDL at 84. The patient is on atorvastatin 80 mg. GERD: Patient with acid reflux. She is on omeprazole 20 mg. Symptoms are well-controlled. Polymyalgia rheumatica/fibromyalgia/osteoarthritis: Patient with chronic pain secondary to fibromyalgia, polymyalgia rheumatica and osteoarthritis. She follows with [facility] (Dr. Pacheco).Symptoms have been controlled with use of gabapentin. Patient notes she was referred to see [facility] (Dr. Flood) for management of carpal tunnel syndrome. Has consultation scheduled. COPD/asthma/allergic rhinitis: Patient with COPD/Asthma on symbicort daily and albuterol as needed.She reports occasional shortness of breath and wheezing which is managed with use of the inhalers. Patient follows with pulmonology, Dr. Vasquez. She also has allergic rhinitis which she uses Claritin for. Last colonoscopy completed in 2014. Patient will be due this year, referral to be placed today. ROS: GENERAL: No malaise, significant weight loss or fever HEENT: No changes in hearing or vision, nose bleeds or other nasal problems RESPIRATORY: No cough, wheezing or shortness of breath CARDIOVASCULAR: No chest pain, leg swelling or palpitations GI: No abdominal pain, hematochezia, melena MUSCULOSKELETAL: No joint pain or swelling, back pain, or muscle pain. NEURO: No persistent headache, syncope, seizures, weakness or numbness PAST MEDICAL HISTORY: Patient Active Problem List [...] loss 12/11/2015 COPD (chronic obstructive pulmonary disease) ([facility]) 05/30/2014 Multiple pulmonary nodules 01/23/2014 Hyperlipidemia 04/12/2013 Osteoarthritis 04/12/2013 No past surgical history on file. SOCIAL HISTORY: Social History Tobacco Use Smoking status: Former Types: Cigarettes Smokeless tobacco: Never Substance Use Topics Alcohol use: Not Currently FAMILY HISTORY: Family History Problem Relation Name Age of Onset Hypertension Mother Lung cancer Father Family Status Relation Name Status Mother (Not Specified) Father (Not Specified) No partnership data on file MEDICATIONS DISCONTINUED/REORDERED: Medications Discontinued During This Encounter Medication Reason omeprazole (PriLOSEC) [address] capsule ACTIVE MEDICATIONS: Outpatient Medications Marked as Taking for the 09/14/24 encounter (Office Visit) with GUIDO Rashid Medication Sig Dispense Refill acetaminophen (TYLENOL 8 HOUR) 650 mg 8 hr tablet TAKE 1 TABLET BY MOUTH EVERY 8 HOURS NEEDED FOR PAIN. 60 tablet 0 albuterol HFA (PROAIR HFA ; PROVENTIL HFA ; VENTOLIN HFA) 90 mcg/actuation inhaler Inhale 2 puffs by mouth. atorvastatin (LIPITOR) 80 mg tablet TAKE 1 TABLET BY MOUTH AT BEDTIME. 90 tablet 0 gabapentin (NEURONTIN) 300 mg capsule Take 1 capsule (300 mg total) by mouth. ibuprofen (ADVIL,MOTRIN) 600 mg tablet Take 1 tablet (600 mg total) by mouth every 6 (six) hours ifneeded for moderate pain. 60 tablet 0 loratadine (CLARITIN) 10 mg tablet Take 1 tablet (10 mg total) by mouth 1 (one) time each day. 90 tablet 0 prednisoLONE acetate (PRED FORTE) 1 % ophthalmic suspension [DISCONTINUED] omeprazole (PriLOSEC) [address] capsule Take 1 capsule (20 mg total) by mouth. ALLERGIES: Allergies Allergen Reactions Latex Other Seasonal Allergies PHYSICAL EXAM: Visit Vitals BP 126/68 (BP Location: Left arm, Patient Position: Sitting, BP Cuff Size: Adult) Pulse 78 Temp 36.2 ??C (97.1 ??F) (Temporal) Ht 1.575 m (62.01 ) Wt 63.3 kg (139 lb 9.6 oz) SpO2 98% BMI 25.53 kg/m?? Smoking Status Former BSA 1.64 m?? APPEARANCE: Alert and in no acute distress HEART: RRR with normal S1 and S2, no murmurs, no gallops LUNG: clear to auscultation, no wheezing, rales, or rhonchi. Able to talk in full complete sentences NEURO: Awake, alert and oriented x 3. No focal neurological deficits LABS: Lab Results Component Value Date CHOL 170 09/14/2024 TRIG 120 09/14/2024 HDL 63 09/14/2024 LDLCALC 83 09/14/2024 VLDL 24 09/14/2024 NONHDLC 107 09/14/2024 CHOLHDL 2.7 09/14/2024 Lab Results Component Value Date GLUCOSE 110 (H) 09/14/2024 CALCIUM 9.6 09/14/2024 NA 139 09/14/2024 K 4.6 09/14/2024 CO2 26 09/14/2024 CL 107 09/14/2024 BUN 12 09/14/2024 CREATININE 0.73 09/14/2024 IMPRESSION: 1. Screening for malignant neoplasm of colon 2. Hyperlipidemia, unspecified hyperlipidemia type 3. Allergic rhinitis, unspecified seasonality, unspecified trigger 4. Gastroesophageal reflux disease, unspecified whether esophagitis present 5. Polymyalgia rheumatica ([facility]) 6. Chronic neck pain with history of cervical spinal surgery 7. 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[facility]) PLAN: Hyperlipidemia: Lipid panel ordered. Continue atorvastatin 80 mg. GERD: Controlled. Continue omeprazole 20 mg. Polymyalgia rheumatica/fibromyalgia/osteoarthritis: Patient with chronic pain secondary to fibromyalgia, polymyalgia rheumatica and osteoarthritis following with rheumatology (Dr. Pacheco). Symptoms have been managed with gabapentin. COPD/asthma/allergic rhinitis: Continue per recommendation of pulmonology (Dr. Vasquez), symbicort daily and albuterol as needed. Continue claritin PRN. Referral for colonoscopy placed. Follow up in 6 months. All questions and concerns were addressed. Moon Cuello verbalizes understanding and agrees with this treatment plan. Patient was reminded to call or return to the office if any new or existing problems arise. Orders Placed This Encounter Procedures Comprehensive metabolic panel Lipid panel with reflex to direct LDL Ambulatory referral to Gastroenterology AMB REFERRAL TO GASTROENTEROLOGY GUIDO Rashid on 09/17/2024 at 1:57 PM EST Today's documentation was made using voice recognition software.This note may contain grammatical errors secondary to this software. documented in this encounter Plan of Treatment Scheduled Orders Name Type Priority Associated Diagnoses Orde r Schedule Hemoglobin A1c Lab Routine Elevated glucose 1 Occurrences starting 09/26/2024 until 12/24/2024 Scheduled Referrals Name Type Priority Associated Diagnoses Order Schedule Ambulatory referral to Gastroenterology Outpatient Referral Routine Screening for malignant neoplasm of colon 1 Occurrences starting 09/14/2024 until 09/14/2025 documented as of this encounter Results * Lipid panel with reflex to direct LDL (09/14/2024 10:46 AM EST) Cholesterol 170 0 - 200 mg/dL LAB CHEMISTRY METHOD 09/14/2024 2:33 PM EST [facility] Triglycerides 120 0 - 150 mg/dL LAB CHEMISTRY METHOD 09/14/2024 2:33 PM EST [facility] HDL 63 >=40 mg/dL LAB CHEMISTRY METHOD 09/14/2024 2:33 PM EST [facility] LDL Calculated 83 0 - 100 mg/dL LAB CHEMISTRY METHOD 09/14/2024 2:33 PM EST [facility] VLDL Cholesterol Shilo 24 mg/dL LAB CHEMISTRY METHOD 09/14/2024 2:33 PM EST [facility] Non HDL Chol. (LDL+VLDL) 107 <145 mg/dL LAB CHEMISTRY METHOD 09/14/2024 2:33 PM EST [facility] Chol/HDL Ratio 2.7 0.0 - 4.4 LAB CHEMISTRY METHOD 09/14/2024 2:33 PM [facility] Blood Venous blood specimen / Unknown Venipuncture / Unknown 09/14/2024 10:46 AM EST 09/14/2024 10:46 AM EST Jarad LORA LAB BLOOD ORDERABLES Fi nal Result [facility] [address] [place] [address], [place] [phone] * (ABNORMAL) Comprehensive metabolic panel (09/14/2024 10:46 AM EST) Sodium 139 133 - 145 mmol/L LAB CHEMISTRY METHOD 09/14/2024 2:33 PM EST [facility] Potassium 4.6 3.5 - 5.5 mmol/L LAB CHEMISTRY METHOD 09/14/2024 2:33 PM [facility] Chloride 107 96 - 110 mmol/L LAB CHEMISTRY METHOD 09/14/2024 2:33 PM [facility] CO2 26 21 - 32 mmol/L LAB CHEMISTRY METHOD 09/14/2024 2:33 PM [facility] Anion Gap 6 3 - 11 LAB CHEMISTRY METHOD 09/14/2024 2:33 PM [facility] Glucose 110(H) 70 - 100 mg/dL LAB CHEMISTRY METHOD 09/14/2024 2:33 PM [facility] BUN 12 5 - 25 mg/dL LAB CHEMISTRY METHOD 09/14/2024 2:33 PM [facility] Creatinine 0.73 0.50 - 1.10 mg/dL LAB CHEMISTRY METHOD 09/14/2024 2:33 PM [facility] eGFR 94 >=60 mL/min/1. 73m2 LAB CHEMISTRY METHOD 09/14/2024 2:33 PM [facility] Comment:Calculation based on the??Chronic Kidney Disease Epidemiology Collaboration (CKD-EPI) equation refit??without adjustment for race. BUN/Creatinine Ratio 16.4 LAB CHEMISTRY METHOD 09/14/2024 2:33 PM [facility] Calcium 9.6 8.5 - 10.5 mg/dL LAB CHEMISTRY METHOD 09/14/2024 2:33 PM [facility] AST (SGOT) 23 10 - 42 unit/L LAB CHEMISTRY METHOD 09/14/2024 2:33 PM EST [facility] ALT (SGPT) 28 10 - 60 unit/L LAB CHEMISTRY METHOD 09/14/2024 2:33 PM EST [facility] Alkaline Phosphatase 66 42 - 121 unit/L LAB CHEMISTRY METHOD 09/14/2024 2:33 PM [facility] Total Protein 7.3 6.0 - 8.0 g/dL LAB CHEMISTRY METHOD 09/14/2024 2:33 PM EST [facility] Albumin 4.3 3.2 - 5.0 g/dL LAB CHEMISTRY METHOD 09/14/2024 2:33 PM [facility] Total Bilirubin 0.5 0.0 - 1.4 mg/dL LAB CHEMISTRY METHOD 09/14/2024 2:33 PM [facility] Blood Venous blood specimen / Unknown Venipuncture / Unknown 09/14/2024 10:46 AM EST 09/14/2024 10:46 AM EST Jarad LORA LAB BLOOD ORDERABLES Fi nal Result [facility] [address] [place] [address], documented in this encounter Visit Diagnoses Diagnosis Screening for malignant neoplasm of colon- Primary Hyperlipidemia, unspecified hyperlipidemia type Allergic rhinitis, unspecified seasonality, unspecified trigger Gastroesophageal reflux disease, unspecified whether esophagitis present Polymyalgia rheumatica (CMS/HCC) Polymyalgia rheumatica Chronic neck pain with history of cervical spinal surgery 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CMS/HCC) Elevated glucose Other abnormal glucose documented in this encounter Discontinued Medications Medication Sig Discontinue Reason Start Date End Da te omeprazole (PriLOSEC) [address] capsule Take 1 capsule (20 mg total) by mouth. 08/27/2022 09/14/2024 documented as of this encounter Care Teams Room Cleaner Relationship Specialty Start Date End Date Logan Snyder MD [address] [place] [id number] PCP - General Internal Medicine 06/17/21 documented as of this encounter
--- OUTSIDE RECORDS SUMMARY | 2024-09-27 11:54 | XMS_ITS | Encounter Summary ---
Author Organization [facility] Address [address] [place] [address] [address] [place] [address] Care Team Providers Care Rn Wound Care Name Role Phone Unavailable Primary Care Provider Unavailabl e Encounter Details Date Type Department Care Team (Latest Contact Info) Description 10/06/2018 Abstract C CONVERSIONS Dental, Provider, DDS Social History Tobacco Use Types Packs/Day Years Used Date Smoking Tobacco: Never Assessed Comments Unknown Sex and Gender Information Value Date Recorded Sex Assigned at Female 06/16/2022 10:14 AM EDT Legal Sex Female 10:14 AM EDT Gender Identity Not on file Sexual Orientation Not on file documented as of this encounter Plan of Treatment Not on file documented as of this encounter Visit Diagnoses Not on filedocumented in this encounter
--- OUTSIDE RECORDS SUMMARY | 2024-09-27 11:54 | XMS_ITS | Clinical Summary ---
Author Organization [facility] Address [address] [place] [address] [address] [place] [address] Care Team Providers Care Subway Repair Supervisor Name Role Phone Unavailable Primary Care Provider Unavailabl e Social History Tobacco Use Types Packs/Day Years Used Date Smoking Tobacco: Never Assessed Comments Unknown Sex and Gender Information Value Date Recorded Sex Assigned at Female 06/16/2022 10:14 AM EDT Legal Sex Female 10:14 AM EDT Gender Identity Not on file Sexual Orientation Not on file Plan of Treatment Health Maintenance Due Date Last Done Comments CT Colonography 1963 Colonoscopy 1963 Colorectal Cancer Screening 1963 Depression Screening 1963 FIT DNA/Cologuard 1963 FIT 1963 FOBT 1963 Sigmoidoscopy 1963 Alcohol/Substance Use Screening 1975 Tobacco Screening 1975 DTaP/Tdap/Td Vaccines (1 - Tdap) 1982 Pap Smear 1984 Cervical Cancer Screening 1993 HPV/Cotest 1993 Mammogram 2003 Pneumococcal Vaccine: 50+ Ye ars (1 of 1 - PCV) 2013 Zoster Vaccines (1 of 2) 2013 COVID-19 Vaccine ( - 2023-2 5 season) 2024 Influenza Vaccine (#1) 2024 RSV Patients and Pa tients Aged 60 years or older (1 - 1-dose 75+ series) 2038 HIB Vaccines Aged Out No longer eligi ble based on patient's age to complete this topic HPV Vaccines Aged Out No longer eligi ble based on patient's age to complete this topic Hepatitis A Vaccines Aged Out No long er eligible based on patient's age to complete this topic Hepatitis B Vaccines Aged Out No long er eligible based on patient's age to complete this topic IPV Vaccines Aged Out No longer eligi ble based on patient's age to complete this topic Meningococcal Vaccine Aged Out No liza rickey eligible based on patient's age to complete this topic Pneumococcal Vaccine: Pediat rics (0 to 5 Years) and At-Risk Patients (6 to 49) Years) Aged Out No longer eligible b ased on patient's age to complete this topic RSV under 20 months Aged Out No longe r eligible based on patient's age to complete this topic Rotavirus Vaccines Aged Out No longer eligible based on patient's age to complete this topic
--- OUTSIDE RECORDS SUMMARY | 2024-09-27 11:54 | XMS_ITS | Clinical Summary ---
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 2 Active budesonide-for moteroL (SYMBICORT) 160-4.5 mcg/actuation inhaler Inhale 2 puffs by mouth. 3 Active albuterol HFA (PROAIR HFA ; PROVENTIL HFA ; VENTOLIN HFA) 90 mcg/actuation inhaler Inhale 2 puffs by mouth. 4 Active prednisoLONE acetate (PRED FORTE) 1 % ophthalmic suspension 3 Active acetaminophen (TYLENOL 8 HOUR) 650 mg 8 hr tablet TAKE 1 TABLET BY MOUTH EVERY 8 HOURS NEEDED FOR PAIN. 60 tablet 4 Active atorvastatin (LIPITOR) 80 mg tablet TAKE 1 TABLET BY MOUTH AT BEDTIME. 90 tablet 4 Active ibuprofen (ADVIL,MOTRIN) 600 mg tablet Take 1 tablet (600 mg total) by mouth every 6 (six) hours if needed for moderate pain. 60 tablet 4 Active loratadine (CLARITIN) 10 mg tablet Take 1 tablet (10 mg total) by mouth 1 (one) time each day. 90 tablet 4 Active omeprazole (PriLOSEC) [address] capsule Take 1 capsule (40 mg total) by mouth 1 (one) time each day. Do not crush or chew. 90 each 1 5 026 Active omeprazole (PriLOSEC) [address] capsule Take 1 capsule (20 mg total) by mouth. 3 025 Discontinued Active Problems Problem Noted Date Diagnosed Date Abnormal stress test 07/06/2024 Chest pain 07/06/2024 Overview (07/07/2024): The chest pain was very atypical and was not ischemia chest pain. She has not had recurrent chest pain. The stress test showed no perfusion defect and reprocessed transient ischemic dilation index is normal. She had no coronary artery calcification. There is no further cardiac test needed. Will continue primary prevention. SOB (shortness of breath) 07/06/2024 GERD (gastroesophageal reflux disease) 4 Glaucoma 05/17/2024 Tobacco use 05/17/2024 Polymyalgia rheumatica 05/17/2024 Chronic neck pain with history of cervical spina l surgery 05/17/2024 Status post total hip replacement, right 021 Fibromyalgia 11/19/2020 Primary osteoarthritis of both hips 11/19/2020 Overview (05/17/2024): Last Assessment & Plan: The patient is currently scheduled for right total hip arthroplasty. She has been cleared by her primary care physician. She was given the ERAS beverage and a chlorhexidine scrub with instructions on how to use these preoperatively. Our preoperative x-rays are suitable for preoperative planning. She is scheduled for surgery on 01/22/2021 and we will move ahead with that plan. She will follow-up with me here about 2 weeks postop or anytime prior to that on a as needed basis. All of the patient's and her family's questions were answered to their satisfaction. They should feel free to give the office a call if they have any further questions before surgery. Primary osteoarthritis of both knees 11/19/2020 ASCUS with positive high risk HPV cervical 10/16 Overview (05/17/2024): 07/25/2019 Pap smear ASCUS HR HPV 10/17/2019 Colposcopy wnl Depression 09/22/2017 Allergic rhinitis 09/22/2017 Eczema 09/22/2017 Asthma 09/22/2017 Memory impairment 09/22/2017 Internal hemorrhoids 09/03/2017 Hearing loss 12/11/2015 COPD (chronic obstructive pulmonary disease) Multiple pulmonary nodules 01/23/2014 Hyperlipidemia 04/12/2013 Osteoarthritis 04/12/2013 Encounters Date Type Department Care Team Description 09/14/2024 9:45 AM EST Office Visit Adult Medicine [address] [phone] Julia Crawford PA Screening for malignant neoplasm of colon (Primary Dx); Hyperlipidemia, unspecified hyperlipidemia type; Allergic rhinitis, unspecified seasonality, unspecified trigger; Gastroesophageal reflux disease, unspecified whether esophagitis present; Polymyalgia rheumatica (CMS/HCC); Chronic neck pain with history of cervical spinal surgery; 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CMS/HCC); Elevated glucose 09/02/2024 11:03 AM EST - 09/02/2024 1:52 PM EST Emergency [facility] Emergency [address] [place] [id number] Discharge Disposition: Home or Self Care 09/02/2024 9:30 AM EST Office Visit Pulmonolgy - [place] [address] [facility] [address] [place] [phone] Tara Vasquez MD COPD with asthma (CMS/HCC) (Primary Dx); Loud snoring; Ex-smoker; Lung nodules 07/07/2024 8:20 AM EST Office Visit [facility] [address] [facility] [address] [place] [address] Omar Mtz MD Other forms of angina pectoris (CMS/HCC) (Primary Dx) from Last 3 Months Immunizations Name Administration Dates Next Due Hepatitis B (Icfowwv-K-Cbkwu , Recombivax HB-Adult) 19yo and older 08/03/2013 Influenza Quadravalent, MDCK , 0.5ml, preservative free (Flucelvax) 6mo and older 06/03/2021,08/13/2020,10/17/2019 Influenza trivalent, 0.5mL, preservative free (Fluarix; FluLaval; Fluzone) ages 6mo and older (Afluria) 3 years and older 04/10/2017,05/09/2016 Influenza trivalent, with pr eservative (Fluzone; Afluria) 6mo and older 07/13/2018 Pfizer SARS-CoV-2 COVID-19, mRNA, LNP-S, preservative free 07/04/2021 Pneumococcal conjugate 13 va lent (Prevnar 13, PCV13) 2mo and older 01/08/2016 Pneumococcal polysaccharide 23 valent (Pneumovax 23) 2yo and older 03/07/2019,03/28/2014 Tdap Tetanus diptheria acell ular pertussis (Boostrix; Adacel) 7yo and older 07/03/2016,08/03/2013 Medical History Medical History Date Comments COPD (chronic obstructive pulmonary disease) ([facility]) Asthma Hyperlipidemia Diabetes mellitus ([facility]) Hypertension Family History Medical History Relation Name Comments Lung cancer Father Hypertension Mother Relation Name Status Comments Father Mother Social History Tobacco Use Types Packs/Day Years [...] on file Sexual Orientation Not on file Obstetrics History Last Filed Vital Signs Vital Sign Reading Time Taken Comments Blood Pressure 126/68 09/14/2024 9:58 AM EST Pulse 78 09/14/2024 9:58 AM EST Temperature 36.2 ??C (97.1 ??F) 09/14/2024 9:58 AM ES T Respiratory Rate 22 09/02/2024 10:15 AM EST Oxygen Saturation 98% 09/14/2024 9:58 AM EST Inhaled Oxygen Concentration - - Weight 63.3 kg (139 lb 9.6 oz) 09/14/2024 9:58 A M EST Height 157.5 cm (5' 2.01 ) 09/14/2024 9:58 AM ES T Body Mass Index 25.53 09/14/2024 9:58 AM EST Plan of Treatment Health Maintenance Due Date Last Done Comments Hepatitis B Vaccines (2 of 3 - 19+ 3-dose series) 08/31/2013 08/03/2013 Zoster Vaccines (1 of 2) 2013 DTaP,Tdap,and Td Vaccines (3 - Td or Tdap) 12/31/2016 07/03/2016, 08/03/2013 Breast Cancer Screening 04/13/2021 04/13/2019, 04/13 Depression Screening 07/26/2022 11/13/2020 HIV Screening 07/26/2022 Social Influencers of Health Screening 07/26/2022 RSV Immunization Patients 60+ Years Old (1 - Risk 60-74 years 1-dose series) 2023 Pneumococcal Vaccine: 50+ Years (3 of 3 - PCV20 or PCV21) 03/07/2024 03/07/2019, 01/08/2016, 03/28/2014 Pneumococcal Vaccine: Pediatrics (0 to 5 Years) and At-Risk Patients (6 to 64 Years) (3 of 3 - PCV20 or PCV21) 03/07/2024 03/07/2019, 01/08/2016, 03/28/2014 COVID-19 Vaccine (2 - season) 2024 07/04/2021 Influenza Vaccine (#1) 2024 , 08/13/2020, 10/17/2019, Additional history exists Cervical Cancer Screening: HPV 07/25/2024 07/25/2019 Colorectal Cancer Screening: Colonoscopy 12/21/2024 12/21/2014 Lung Cancer Screening (Low Dose CT) 06/09/2025 06/09/2024, 05/08/2021 Cholesterol Screening (Lipid Panel) 09/14/2029 09/14/2024, 01/27/2024, 01/27/2024 Hepatitis C Screening Completed 03/01/2013 HIB Vaccines Aged Out No longer eligi [...] on patient's age to complete this topic MMR Vaccines Aged Out No longer eligi ble based on patient's age to complete this topic Meningococcal ACWY Vaccine Aged Out N o longer eligible based on patient's age to complete this topic Meningococcal B Vacine Aged Out No lo nger eligible based on patient's age to complete this topic RSV Immunization Patients Under 20 months Aged Out No longer eligible based on patient's age to complete this topic Varicella Vaccines Aged Out No longer eligible based on patient's age to complete this topic Procedures Procedure Name Priority Date/Time Associated Diagnosis Comments COMPREHENSIVE METABOLIC PANEL Routine 09/14/2024 10:46 AM EST Hyperlipidemia, unspecified hyperlipidemia type LIPID PANEL WITH REFLEX TO DIRECT LDL Routine 09/14/2024 10:46 AM EST Hyperlipidemia, unspecified hyperlipidemia type CBC WITH AUTO DIFFERENTIAL STAT 09/02/2024 10:47 AM EST BASIC METABOLIC PANEL STAT 09/02/2024 10:47 AM EST CBC AND DIFFERENTIAL STAT 09/02/2024 10:47 AM EST ECG 12-LEAD STAT 09/02/2024 10:43 AM EST ECG 12-LEAD Routine 07/07/2024 8:22 AM EST Other forms of angina pectoris (CMS/HCC) CT LUNG SCREENING LOW DOSE Routine 06/09/2024 10:45 AM EDT Personal history of nicotine dependence HM HPV Routine 07/25/2019 ROYA SCREENING DIGITAL Routine 04/13/2019 11:28 AM EDT Encounter for screening mammogram for malignant neoplasm of breast COLONOSCOPY Routine 12/21/2014 HEPATITIS C SCREENING Routine 03/01/2013 from Last 3 Months or Most Recently Relevant to Health Maintenance Results * Lipid panel with reflex to direct LDL (09/14/2024 10:46 AM EST) Cholesterol 170 0 - 200 mg/dL LAB CHEMISTRY METHOD 09/14/2024 2:33 PM EST [facility] Triglycerides 120 0 - 150 mg/dL LAB CHEMISTRY METHOD 09/14/2024 2:33 PM [facility] HDL 63 >=40 mg/dL LAB CHEMISTRY METHOD 09/14/2024 2:33 PM EST [facility] LDL Calculated 83 0 - 100 mg/dL LAB CHEMISTRY METHOD 09/14/2024 2:33 PM [facility] VLDL Cholesterol Shilo 24 mg/dL LAB CHEMISTRY METHOD 09/14/2024 2:33 PM [facility] Non HDL Chol. (LDL+VLDL) 107 <145 mg/dL LAB CHEMISTRY METHOD 09/14/2024 2:33 PM [facility] Chol/HDL Ratio 2.7 0.0 - 4.4 LAB CHEMISTRY METHOD 09/14/2024 2:33 PM [facility] Blood Venous blood specimen / Unknown Venipuncture / Unknown 09/14/2024 10:46 AM EST 09/14/2024 10:46 AM EST us Julia LORA LAB BLOOD ORDERABLES Fi nal Result [facility] [address] [place] [address], * (ABNORMAL) Comprehensive metabolic panel (09/14/2024 10:46 AM EST) Pathologist [facility] Sodium 139 133 - 145 mmol/L LAB CHEMISTRY METHOD 09/14/2024 2:33 PM [facility] Potassium 4.6 3.5 - 5.5 mmol/L LAB CHEMISTRY METHOD 09/14/2024 2:33 PM [facility] Chloride 107 96 - 110 mmol/L LAB CHEMISTRY METHOD 09/14/2024 2:33 PM [facility] CO2 26 21 - 32 mmol/L LAB CHEMISTRY METHOD 09/14/2024 2:33 PM [facility] Anion Gap 6 3 - 11 LAB CHEMISTRY METHOD 09/14/2024 2:33 PM [facility] Glucose 110(H) 70 - 100 mg/dL LAB CHEMISTRY METHOD 09/14/2024 2:33 PM [facility] BUN 12 5 - 25 mg/dL LAB CHEMISTRY METHOD 09/14/2024 2:33 PM [facility] Creatinine 0.73 0.50 - 1.10 mg/dL LAB CHEMISTRY METHOD 09/14/2024 2:33 PM [facility] eGFR 94 >=60 mL/min/1. 73m2 LAB CHEMISTRY METHOD 09/14/2024 2:33 PM [facility] Comment:Calculation based on the??Chronic Kidney Disease Epidemiology Collaboration (CKD-EPI) equation refit??without adjustment for race. BUN/Creatinine Ratio 16.4 LAB CHEMISTRY METHOD 09/14/2024 2:33 PM [facility] Calcium 9.6 8.5 - 10.5 mg/dL LAB CHEMISTRY METHOD 09/14/2024 2:33 PM [facility] AST (SGOT) 23 10 - 42 unit/L LAB CHEMISTRY METHOD 09/14/2024 2:33 PM [facility] ALT (SGPT) 28 10 - 60 unit/L LAB CHEMISTRY METHOD 09/14/2024 2:33 PM [facility] Alkaline Phosphatase 66 42 - 121 unit/L LAB CHEMISTRY METHOD 09/14/2024 2:33 PM [facility] Total Protein 7.3 6.0 - 8.0 g/dL LAB CHEMISTRY METHOD 09/14/2024 2:33 PM [facility] Albumin 4.3 3.2 - 5.0 g/dL LAB CHEMISTRY METHOD 09/14/2024 2:33 PM [facility] Total Bilirubin 0.5 0.0 - 1.4 mg/dL LAB CHEMISTRY METHOD 09/14/2024 2:33 PM [facility] Blood Venous blood specimen / Unknown Venipuncture / Unknown 09/14/2024 10:46 AM EST 09/14/2024 10:46 AM EST Julia LORA LAB BLOOD ORDERABLES Fi nal Result [facility] [address] [place] [address], * (ABNORMAL) CBC auto differential (09/02/2024 10:47 AM EST) WBC 6.3 4.8 - 10.8 K/mcL LAB HEMETOLOGY METHOD 09/02/2024 11:40 AM [facility] RBC 4.70 3.80 - 4.80 M/mcL LAB HEMETOLOGY METHOD 09/02/2024 11:40 AM [facility] Hemoglobin 13.4 11.5 - 16.0 g/dL LAB HEMETOLOGY METHOD 09/02/2024 11:40 AM [facility] Hematocrit 42.5 35.0 - 47.0 % LAB HEMETOLOGY METHOD 09/02/2024 11:40 AM [facility] MCV 90.0 79.0 - 98.0 FL LAB HEMETOLOGY METHOD 09/02/2024 11:40 AM [facility] MCH 28.4 27.0 - 32.0 pcg LAB HEMETOLOGY METHOD 09/02/2024 11:40 AM [facility] MCHC 31.5(L) 32.0 - 37.0 g/dL LAB HEMETOLOGY METHOD 09/02/2024 11:40 AM [facility] RDW 13.0 11.0 - 15.0 % LAB HEMETOLOGY METHOD 09/02/2024 11:40 AM [facility] Platelets 245 130 - 400 K/mcL LAB HEMETOLOGY METHOD 09/02/2024 11:40 AM [facility] MPV 10.3 7.0 - 11.0 FL LAB HEMETOLOGY METHOD 09/02/2024 11:40 AM [facility] NRBC 0.0 <1.0 % LAB HEMETOLOGY METHOD 09/02/2024 11:40 AM [facility] NRBC Absolute 0.00 <0.10 K/mcL LAB HEMETOLOGY METHOD 09/02/2024 11:40 AM [facility] Neutrophils Relative 62.2 % LAB HEMETOLOGY METHOD 09/02/2024 11:40 AM [facility] Lymphocytes Relative 27.5 % LAB HEMETOLOGY METHOD 09/02/2024 11:40 AM [facility] Monocytes Relative 9.0 % LAB HEMETOLOGY METHOD 09/02/2024 11:40 AM [facility] Eosinophils Relative 0.5 % LAB HEMETOLOGY METHOD 09/02/2024 11:40 AM [facility] Basophils Relative 0.6 % LAB HEMETOLOGY METHOD 09/02/2024 11:40 AM [facility] Immature Granulocytes Relative 0.2 % LAB HEMETOLOGY METHOD 09/02/2024 11:40 AM [facility] Neutrophils Absolute 3.94 1.50 - 7.00 K/mcL LAB HEMETOLOGY METHOD 09/02/2024 11:40 AM [facility] Lymphocytes Absolute 1.74 1.00 - 5.00 K/mcL LAB HEMETOLOGY METHOD 09/02/2024 11:40 AM [facility] Monocytes Absolute 0.57 0.20 - 1.00 K/mcL LAB HEMETOLOGY METHOD 09/02/2024 11:40 AM EST [facility] Eosinophils Absolute 0.03 0.00 - 0.50 K/mcL LAB HEMETOLOGY METHOD 09/02/2024 11:40 AM EST [facility] Basophils Absolute 0.04 0.00 - 0.20 K/mcL LAB HEMETOLOGY METHOD 09/02/2024 11:40 AM EST [facility] Immature Granulocytes Absolute 0.01 0.00 - 0.03 K/[facility] LAB HEMETOLOGY METHOD 09/02/2024 11:40 AM [facility] Blood Venous blood specimen / Unknown Venipuncture / Unknown 09/02/2024 10:47 AM EST 09/02/2024 11:27 AM EST us Kyler Dunn MD LAB BLOOD ORDERABLES Final Result [facility] [address] [place] [address], * Basic metabolic panel (09/02/2024 10:47 AM EST) Sodium 137 133 - 145 mmol/L LAB CHEMISTRY METHOD 09/02/2024 11:48 AM [facility] Potassium 4.5 3.5 - 5.5 mmol/L LAB CHEMISTRY METHOD 09/02/2024 11:48 AM [facility] Chloride 107 96 - 110 mmol/L LAB CHEMISTRY METHOD 09/02/2024 11:48 AM [facility] CO2 27 21 - 32 mmol/L LAB CHEMISTRY METHOD 09/02/2024 11:48 AM [facility] Anion Gap 3 3 - 11 LAB CHEMISTRY METHOD 09/02/2024 11:48 AM [facility] Glucose 100 70 - 100 mg/dL LAB CHEMISTRY METHOD 09/02/2024 11:48 AM [facility] BUN 14 5 - 25 mg/dL LAB CHEMISTRY METHOD 09/02/2024 11:48 AM [facility] Creatinine 0.75 0.50 - 1.10 mg/dL LAB CHEMISTRY METHOD 09/02/2024 11:48 AM [facility] eGFR 91 >=60 mL/min/1. 73m2 LAB CHEMISTRY METHOD 09/02/2024 11:48 AM EST [facility] Comment:Calculation based on the??Chronic Kidney Disease Epidemiology Collaboration (CKD-EPI) equation refit??without adjustment for race. BUN/Creatinine Ratio 18.7 LAB CHEMISTRY METHOD 09/02/2024 11:48 AM [facility] Calcium 9.5 8.5 - 10.5 mg/dL LAB CHEMISTRY METHOD 09/02/2024 11:48 AM [facility] Blood Venous blood specimen / Unknown Venipuncture / Unknown 09/02/2024 10:47 AM EST 09/02/2024 11:27 AM EST us Kyler Dunn MD LAB BLOOD ORDERABLES Final Result [facility] [address] [place] [address], * ECG 12 lead (09/02/2024 10:43 AM EST) Only the most recent of2 resultswithin the time period is included. Ventricular Rate ECG 57 BPM GEMUSE Atrial Rate 57 BPM GEMUSE P-R Interval 130 ms GEMUSE QRS Duration 74 ms GEMUSE Q-T Interval 460 ms GEMUSE QTc 447 ms GEMUSE P Wave [place]arks[place] 72 degrees GEMUSE R [place] 23 degrees GEMUSE T Clarkson 30 degrees GEMUSE ECG Interpretation Sinus bradycardia Possible Left atrial enlargement Borderline ECG When compared with ECG of 07-JUL-2024 08:22, No significant change was found Confirmed by LIMA VYAS ([id number]) on 09/02/2024 5:36:23 PM GEMUSE 09/02/2024 10:4 3 AM EST 09/02/2024 5:36 PM EST us Kyler Dunn MD ECG ORDERABLES Final Resul t GEMUSE * CT LUNG SCREENING LOW DOSE (06/09/2024 10:45 AM EDT) Anatomical Region Laterality Modality Computed Tomogra phy 06/09/2024 9:53 AM EDT Narrative 06/09/2024 10:45 AM EDT [facility] Diagnostic Imaging Department [address] [place] [address] Patient: ??MOON CUELLO Y ?/Age/Sex: 1965 - 58 - F Unit#: ??[id number] ? Location/Status: ??SPDICATLS/REG CLI ? Mnemonic/Ordering Site: ??CTLUNGLD/SPCT Ordering Physician: ??MICA ENGLE MD CT Lung Screening Low Dose - 06/09/24 - 1013 Report Status:Signed INDICATION: Quit 4 years ago with 41 pack-year smoking history FINDINGS: Low-dose CT scan of the chest obtained as a lung cancer screening study. Scanner: Audibase speed 64 slice VCT Dose reduction technique: ASIR (Adaptive statistical iterative reconstruction) and/or AEC (automated exposure control) Dose: total exam DLP 119 mGY per cm COMPARISON: Compared to chest CTA from June 10, 2023 as well as lung cancer screening chest CT from May 08, 2021. Lung: No infiltrates or effusions. No new nodules or masses. 2 mm peripheral nodule in the right upper lobe on series 3 image 102, unchanged. Linearly oriented 5 mm nodule posterior laterally in the right lower lobe on series 3 image 157, unchanged. Lymph nodes: No thoracic lymphadenopathy. Mediastinum: Trachea and esophagus are within normal limits. Heart normal in size and shape without pericardial effusion. Mediastinal vascular structures are normal in course and caliber. Bony structures: Within normal limits for the patient's age. IMPRESSION: No new or enlarging pulmonary nodules. Lung RADS 2, recommend low-dose screening chest CT in 12 months Dictating Physician: ??JAYSON MORA MD Electronically Signed by: ??JAYSON MORA MD Dic Date/Time: ??06/09/24 1036 Sign date/Time: ??06/09/24 1045 Procedure Note Jayson Mora MD - 06/18/2024 [facility] Diagnostic Imaging Department [address] [place] [id number] Patient: MOON CUELLO /Age/Sex: 1965 - 58 - F Unit#: [id number] Location/Status: SPDICATLS/REG CLI Mnemonic/Ordering Site: [facility] Ordering Physician: MICA ENGLE MD CT Lung Screening Low Dose - 06/09/24 - 1013 Report Status:Signed INDICATION: Quit 4 years ago with 41 pack-year smoking history FINDINGS: Low-dose CT scan of the chest obtained as a lung cancerscreening study. Scanner: Audibase speed 64 slice VCT Dose reduction technique: ASIR (Adaptive statistical iterativereconstruction) and/or AEC (automated exposure control) Dose: total exam DLP 119 mGY per cm COMPARISON: Compared to chest CTA from June 10, 2023 as well as lungcancer screening chest CT from May 08, 2021. Lung: No infiltrates or effusions. No new nodules or masses. 2 mm peripheral nodule in the right upper lobe on series 3 image 102, unchanged. Linearly oriented 5 mm nodule posterior laterally in the right lower lobeon series 3 image 157, unchanged. Lymph nodes: No thoracic lymphadenopathy. Mediastinum: Trachea and esophagus are within normal limits. Heart normalin size and shape without pericardial effusion. Mediastinal vascularstructures are normal in course and caliber. Bony structures: Within normal limits for the patient's age. IMPRESSION: No new or enlarging pulmonary nodules. Lung RADS 2, recommend low-dose screening chest CT in 12 months Dictating Physician: JAYSON MORA MD Electronically Signed by: JAYSON MORA MD Dic Date/Time: 06/09/24 1036 Sign date/Time: 06/09/24 1045 Mica Engle MD IMG CT PROCEDURES Final Result * Cervical Cancer Screening: HPV (07/25/2019) Cervical Cancer Screening: HPV Negative, Abstracted Historical Provider HEALTH MAINTENANCE Final Result * [facility] SCREENING [facility]ITAL (04/13/2019 11:28 AM EDT) Anatomical Region Laterality Modality Mammography 04/13/2019 9:19 AM EDT Narrative 04/13/2019 11:28 AM EDT [facility] Diagnostic Imaging Department [address] [place] [address] Patient: ??MOON CUELLO Y ?/Age/Sex: 1965 - 53 - F Unit#: ??[id number] ? Location/Status: ??SPDIMAM/REG CLI ? Mnemonic/Ordering Site: ??DIGSC/SPMAM Ordering Physician: ??SHRUTI FRANK DO [facility] Screening Digital - 04/13/19 - 0948 INDICATION: SCREENING COMPARISON: 12/17/2016 and additional outside exams of 12/20/2014 and 05/26/2013 TECHNIQUE: CC and MLO views of the breasts were obtained, using full field digital mammography with 3D tomosynthesis views in the MLO projection. Computer aided detection with the Axcient 7.2-H was employed. FINDINGS: The breasts contain heterogeneously dense tissues, which may lower sensitivity of mammography in this patient. ??Bilateral symmetric nipple inversion which is not present on multiple prior mammograms. No suspicious masses, suspicious microcalcifications, or areas of architectural distortion are identified. ??Rare benign-appearing breast calcifications are present bilaterally. There are no secondary signs of breast malignancy. Compared to the prior exam, no adverse interval change. IMPRESSION: ??No specific mammographic evidence of breast malignancy. Lack of an imaging correlate should not deter or delay biopsy of a clinically significant palpable finding. BI-RADS ??- Category 2 - Benign finding 3342F, 7025F Annual screening mammography is recommended. Patient entered into a reminder system with a target date for the next mammogram. ([id number] / [id number]) , ??[id number] Dictating Physician: ??ANGELITO HAWTHORNE MD Electronically Signed by: ??ANGELITO HAWTHORNE MD Dic Date/Time: ??04/13/19 1122 Sign date/Time: ??04/13/19 1128 Procedure Note Angelito Hawthorne - 08/06/2022 [facility] Diagnostic Imaging Department [address] [place] [address] Patient: MOON CUELLO Tr /Age/Sex: 1965 - 53 - F Unit#: [id number] Location/Status: SPDIMAM/REG CLI Mnemonic/Ordering Site: [facility] Ordering Physician: SHRUTI FRANK DO [facility] Screening Digital - 04/13/19 - 0948 INDICATION: SCREENING COMPARISON: 12/17/2016 and additional outside exams of 12/20/2014 and05/26/2013 TECHNIQUE: CC and MLO views of the breasts were obtained, using full field digital mammography with 3D tomosynthesis views in the MLO projection. Computer aided detection with the Axcient 7.2-H was employed. FINDINGS: The breasts contain heterogeneously dense tissues, which may lowersensitivity of mammography in this patient. Bilateral symmetric nipple inversionwhich is not present on multiple prior mammograms. No suspicious masses, suspicious microcalcifications, or areas ofarchitectural distortion are identified. Rare benign-appearing breast calcificationsare present bilaterally. There are no secondary signs of breast malignancy. Compared to the prior exam, no adverse interval change. IMPRESSION: No specific mammographic evidence of breast malignancy. Lack of an imaging correlate should not deter or delay biopsy of aclinically significant palpable finding. BI-RADS - Category 2 - Benign finding 3342F, 7025F Annual screening mammography is recommended. Patient entered into a reminder system with a target date for the next mammogram. ([id number] / [id number]) , [id number] Dictating Physician: ANGELITO HAWTHORNE MD Electronically Signed by: ANGELITO HAWTHORNE MD Dic Date/Time: 04/13/19 1122 Sign date/Time: 04/13/19 1128 Shruti Frank DO IMG BI PROCEDURES Final Result * Colonoscopy (12/21/2014) Colonoscopy No Interpretation , Abstracted Anatomical Region Laterality Modality Other Historical Provider HEALTH MAINTENANCE Final Result * Hepatitis C Screening (03/01/2013) Hepatitis C Screening Abstracted Historical Provider HEALTH MAINTENANCE Final Result from Last 3 Months or Most Recently Relevant to Health Maintenance Insurance [place] [address] [place] [address] HEALTH PLAN Advance Directives Documents on File Type Date Recorded Patient Ekg Monitor Tech Expl anation Health Care Decision (hx) 12/24/2021 AD GARCÍA DIRECTIVE Health Care Decision (hx) 12/24/2021 AD GARCÍA DIRECTIVE Health Care Decision (hx) 12/24/2021 AD GARCÍA DIRECTIVE Health Care Decision (hx) 12/24/2021 AD GARCÍA DIRECTIVE Health Care Decision (hx) 12/24/2021 AD GARCÍA DIRECTIVE Health Care Decision (hx) 12/24/2021 AD GARCÍA DIRECTIVE Health Care Decision (hx) 12/24/2021 AD GARCÍA DIRECTIVE Health Care Decision (hx) 12/24/2021 AD GARCÍA DIRECTIVE Health Care Decision (hx) 12/24/2021 AD GARCÍA DIRECTIVE Health Care Decision (hx) 12/24/2021 AD GARCÍA DIRECTIVE Health Care Decision (hx) 12/24/2021 AD GARCÍA DIRECTIVE Health Care Decision (hx) 12/24/2021 AD GARCÍA DIRECTIVE Health Care Decision (hx) 12/24/2021 AD GARCÍA DIRECTIVE Care Teams Shop Firer/Fireman Relationship Specialty Start Date End Date Logan Snyder MD [address] [place] [id number] PCP - General Internal Medicine 06/17/21
== END 2024-09-27 11:18 | disposition home or self-care (01) ==
PROVIDERS: PCP Internal Medicine; Visit Provider Orthopaedic Surgery
DX: G56.03 Carpal tunnel syndrome, bilateral upper limbs (principal); M79.7 Fibromyalgia; M35.3 Polymyalgia rheumatica
CPT/HCPCS: 99204

== ENCOUNTER → 2024-09-27 10:38 | Outpatient (BNVA) | payer OTHER, SELFPAY | PROVIDERS: PCP Internal Medicine; Visit Provider Orthopaedic Surgery | DX: G56.03 Carpal tunnel syndrome, bilateral upper limbs (principal); M79.7 Fibromyalgia; M35.3 Polymyalgia rheumatica | CPT/HCPCS: 99202 ==

== ENCOUNTER 2024-10-05 10:16 | Outpatient (AMB) | payer OTHER, SELFPAY ==
--- NOTE | 2024-10-05 10:46 | A.OFFVIS_ITS ---
Vital Signs 10/05/24 10:56 Height 5 ft 2 in Weight 138 lb 10.732 oz BMI 25.4 BP 130/82 Blood Pressure Location Rt brachial Position Sitting Pulse 71 Pulse Source Pulse Oximeter Pulse Oximetry (%) 96 Oxygen Delivery Method Room Air Intake Visit Reasons: OA Intake Note: Patient presents for OA. Industrial Maintenance Repairer Required: Yes Industrial Maintenance Repairer Language: Culinary Specialist Services: Industrial Maintenance Repairer Present Industrial Maintenance Repairer Name: [id number] [id number] Information Interpreted: non-clinical & clinical Allergies latex Allergy (Intermediate, Verified 10/05/24 10:54) Dry skin weed pollen Allergy (Intermediate, Verified 10/05/24 10:54) Anaphylaxis HPI Comments Details: Patient is a 59-year-old female with COPD, hyperlipidemia, depression/anxiety, polyarticular osteoarthritis, osteoporosis, PMR and fibromyalgia here today for follow up Interval History: Last seen 06/27/[address] Pacheco. At that time she was complaining of feeling an electric current sensation in all 4 extremities impairing her ability to walk. An EMG was ordered which was essentially normal except for severe bilateral carpal tunnel syndrome and she was referred to hand surgery for which she is undergoing evaluation for surgical intervention. Today, She complains of continued pain and anesthesia to the saddle region. No associated bowel or bladder incontinence No headaches, jaw claudication or visual changes No return of PMR symptoms Rheumatologic History: PMR Dx 2018. Tapered off prednisone 2021 Current Rheumatology Medication(s): Vitamin-D Gabapentin 300 mg b.i.d. PFSH Surgical History H/O cervical spine surgery Hx of section H/O bilateral hip replacements History of eye surgery History of appendectomy Family History Father Emphysema lung Mother Hypertension Arthritis Diabetes Social History Household Members: None Alcohol intake: never Patient Tobacco Use Status: Former Tobacco user Substance Use Type: Marijuana Current occupational status: disabled Review of Systems Const Details: Review of Systems Constitutional: Denies fever, chills, weight loss ENT: Denies vision changes, eye pain or eye redness, dental caries, dry mouth GI: Denies nausea, vomiting, diarrhea, abdominal pain, change in BM Pulm: Denies SOB, FRANKLIN, hemoptysis, wheezing Cards: Denies chest pain, palpitations Skin: Denies Raynaud's, rash, nail changes, photosensitivity, T[employer] 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 Well appearing and in no apparent painful distress HEENT Conjunctiva and sclera clear. ?Pupils equal round and reactive to light. ?No lymphadenopathy. ? CHEST/RESPIRATORY SYSTEM Normal respiratory effort and able to speak in complete sentences. ?Clear to auscultation bilaterally. ?No crackles, rales, rhonchi, wheezes heard. CARDIAC SYSTEM Regular rate and rhythm. ?S1 and S2 heard no murmurs. ?Radial pulses intact bilaterally MSK Hands: ?Good supervisor filtration strength bilaterally. No deformities noted. ?No synovitis noted to the MCPs, PIPs or DIPs. ?No tenderness to palpation of these joints. Wrists: ?Full range of motion at the wrists without pain. ?No tenderness to palpation or synovitis noted to the wrists. Elbows: Full range of motion without pain. No tenderness, weakness, swelling, increased warmth or erythema. Shoulders: Full range of motion without pain. No tenderness, weakness, swelling, increased warmth or erythema. Hips: Full range of motion without pain. TTP of the groin area Knees: ?Right knee with full ROM. Left knee with brace and held in extension 2/2 pain. No swelling noted Ankles: Full range of motion. ?No tenderness, swelling, increased warmth or erythema.? Feet: ?Negative squeeze test. ?No tenderness to palpation or swelling of the MTPs. Tender points:?No tenderness to palpation of the bilateral trapezius, supraspinatus, greater trochanters, anterior costochondral junctions, bilateral gluteal areas, bilateral suboccipital muscle insertions SKIN Skin intact without rashes. Results Reviewed Results Reviewed: EMG 08/2024 FINDINGS: Bilateral median motor nerves showed prolonged distal latency, normal amplitude and normal conduction velocity. Bilateral median sensory nerves showed prolonged peak latency, and small amplitude. Left median sensory nerve showed peak latency. All other nerves tested were within normal. Concentric needle EMG was performed in selected muscles of the bilateral upper e xtremities and lower extremities. Study did not reveal signs of electric abnormalities as shown in the table above. IMPRESSION: 1. This is an abnormal study. 2. There is electrodiagnostic evidence for bilateral moderate-severe median neuropathy at the wrist, consistent with carpal tunnel syndrome. 3. There is no electrodiagnostic evidence for ulnar neuropathy, brachial plexopathy, cervical radiculopathy, peroneal neuropathy, tibial neuropathy. lumbosacral plexopathy, lumbar radiculopathy, or peripheral neuropathy. Assessment & Plan Assessment & Plan (1) Fibromyalgia: Code(s): M79.7 - Fibromyalgia Category: Medical Plan: #Fibromyalgia Patient is a 59-year-old female with fibromyalgia. At this time unsure what the cause of her saddle allodynia is. There is no evidence of neuropathy on EMG. And her L-spine does not show any evidence of spinal compromise. She has an order for MRI of the lumbar spine. We will follow up the results of this. In the meantime we can increase her gabapentin Plan - Gabapentin 600mg bid - RTC 6 months (2) Polymyalgia rheumatica: Comment: History of PMR. prednisone was tapered off in 2021. Code(s): M35.3 - Polymyalgia rheumatica Category: Medical Plan: #PMR Currently in remission No evidence of GCA on exam or history Plan - Continue to monitor off prednisone Plan I spent 20 minutes reviewing the record and labs, taking a history, examining the patient, discussing the treatment plan and documenting in the medical record Medications: Changed From gabapentin 300 mg PO BID 60 caps 2RF M79.7 - Fibromyalgia To gabapentin 600 mg (2 x 300 mg) PO BID 30 days 120 caps 6RF M79.7 - Fibromyalgia Coding Level of Care Code Est Pt Level 3 (06726) Diagnoses Fibromyalgia M79.7 Polymyalgia rheumatica M35.3
--- OUTSIDE RECORDS SUMMARY | 2024-10-05 10:52 | XMS_ITS | Encounter Summary ---
Author Organization [facility] Address [address] [place] [address] Care Team Providers Care Rubber Off Name Role Phone Logan Snyder MD Primary Care Provider [phone] Reason for Visit * Reason Onset Date Comments Hyperglycemia 10/03/2024 Encounter Details Date Type Department Care Team (Late st Contact Info) Description 10/03/2024 Nurse Triage Adult Medicine [address] [phone] Logan Snyder MD [address] [place] [phone] Hyperglycemia Social History Tobacco Use Types Packs/Day Years [...] on file documented as of this encounter Progress Notes * Staci Mujica RN - 10/03/2024 11:02 AM EST Called pt via [facility] and interpretor # [id number]. She had an appointment on 09/14/24. Her blood glucose was noted to be elevated at 110 via CMP. She does not check her blood sugar at home. She is wondering when she should come in for her Hgb A1C. Lost contact with pt and call her back with [facility] and interpretor # [id number]. She was instructed she can come to the lab and have her Hgb A1C drawn at any time. She states she will go to administration when she comes to have her labs drawn. Pt was yelling on the phone, unclear what was being said. She is unhappy it has taken this long. * Servando Ortiz - 10/03/2024 9:52 AM EST Patient call requires triage: Symptoms patient is presenting: Patient called stating that she has elevated blood sugar , would like to speak to a nurse , afghan speaking only How long has patient had these symptoms?: unknown For ALL patients calling to schedule any appointment (routine, sick visit, follow up, consult, etc.) in the outpatient setting please ask the following questions: Do you have fever of higher than 101, sore throat with difficulty swallowing or severe shortness ofbreath? no If YES to any of these above symptoms, send a message to triage and do not book. Red dot. If no, an audio or video visit should be booked. Have you had close contact with someone with Coronavirus in the last 14 days? no Have you traveled abroad? no Have you traveled recently to another state outside of [place], [place], [place], [place], [place], [place], [place]? no o If yes, did you quarantine for 14 days or have a negative covid test? no If yes to any of the above, patient is not to be scheduled in office until after 14 day quarantine or negative covid test. If pain or injury related was it due to an accident at work or from a motor vehicle accident? If yes, date of accident/Injury: No If yes, gather 3rd democrat insurance information Third Libertarian Information: not applicable PCP: Logan Snyder MD Payor: [employer]. HEALTH PLAN / Plan: [employer]. MEDICAID / Product Type: *No Product type* / documented in this encounter Plan of Treatment Upcoming Encounters Date Type Department Care Team (Late st Contact Info) Description 03/16/2025 3:45 PM EDT Office Visit [address] [phone] Logan Snyder MD [address] [place] [phone] documented as of this encounter Visit Diagnoses Not on filedocumented in this encounter Care Teams Rubber Off Relationship Specialty Start Date End Date Logan Snyder MD [address] [place] [id number] PCP - General Internal Medicine 06/17/21 documented as of this encounter
--- OUTSIDE RECORDS SUMMARY | 2024-10-05 10:52 | XMS_ITS | Clinical Summary ---
Author Organization [facility] Address [address] [place] [address] Care Team Providers Care Tour Manager Name Role Phone Shruti Morales DO Primary [...] age to complete this topic Care Teams Tour Manager Relationship Specialty Start Date End Date Shruti Morales DO PCP - General Packing Room Inspector 05/21/20
--- OUTSIDE RECORDS SUMMARY | 2024-10-05 10:52 | XMS_ITS | Clinical Summary ---
Author Organization [address] [place] [address] Address [address] [place] [address] Phone Care Team Providers Care Transplanter Orchid Name Role Phone Logan Snyder MD Primary Care Provider [phone] Allergies Active Allergy Reactions Criticality Noted Date [...] Encounters Date Type Department Care Team Description 10/03/2024 Nurse Triage Adult Medicine [address] [phone] Logan Snyder MD [facility] 09/30/2024 Telephone Lung Screening Program - [place] [address] [facility] [address] [place] [phone] Ericka Espinoza MA 09/14/2024 9:45 AM EST Office Visit Adult Medicine [address] [phone] Julia Crawford PA Screening for malignant neoplasm of colon (Primary Dx); Hyperlipidemia, unspecified hyperlipidemia type; Allergic rhinitis, unspecified seasonality, unspecified trigger; Gastroesophageal reflux disease, unspecified whether esophagitis present; Polymyalgia rheumatica (CMS/HCC); Chronic neck pain with history of cervical spinal surgery; 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[facility]); Elevated glucose 09/02/2024 11:03 AM EST - 09/02/2024 1:52 PM EST Emergency [facility] Emergency [address] [place] [phone] Discharge Disposition: Home or Self Care 09/02/2024 9:30 AM EST Office Visit Pulmonolgy - [place] 175 [facility] [address] [place] [phone] Tara Vasquez MD COPD with asthma ([facility]/HCC) (Primary Dx); Loud snoring; Ex-smoker; Lung nodules 07/07/2024 8:20 AM EST Office Visit [facility] [address] [facility] [address] [place] [phone] Omar Mtz MD Other forms of angina pectoris (CMS/HCC) (Primary Dx) from Last 3 Months Immunizations Name Administration Dates Next Due Hepatitis B (Drrodxk-D-Hqrsn , Recombivax HB-Adult) 19yo and older 08/03/2013 [...] Comments COPD (chronic obstructive pulmonary disease) (CM S/HCC) Asthma Hyperlipidemia Diabetes mellitus (CMS/HCC) Hypertension Family History Medical History Relation Name [...] 09/14/2024 9:58 AM EST Plan of Treatment Upcoming Encounters Date Type Department Care Team (Late st Contact Info) Description 03/16/2025 3:45 PM EDT Office Visit Adult Medicine [facility] [address] [place] [phone] Logan Snyder MD [address] [place] [phone] Health Maintenance Due Date Last Done Comments Hepatitis B Vaccines (2 of 3 - 19+ 3-dose series) 08/31/2013 08/03/2013 Zoster Vaccines (1 of 2) 2013 Breast Cancer Screening 04/13/2021 04/13/2019, 04/13 Depression [...] Screening (Low Dose CT) 06/09/2025 06/09/2024, 05/08/2021 DTaP,Tdap,and Td Vaccines (3 - Td or Tdap) 07/03/2026 07/03/2016, 08/03/2013 Cholesterol Screening (Lipid Panel) 09/14/2029 09/14/2024, 01/27/2024, [...] Procedure Name Priority Date/Time Associated Diagnosis Comments HEMOGLOBIN A1C Routine 10/04/2024 9:07 AM EST Elevated glucose COMPREHENSIVE METABOLIC PANEL Routine 09/14/2024 10:46 AM [...] screening mammogram for malignant neoplasm of breast HM COLONOSCOPY Routine 12/21/2014 HEPATITIS C SCREENING Routine 03/01/2013 from Last 3 Months or Most Recently Relevant to Health Maintenance Results * Hemoglobin A1c (10/04/2024 9:07 AM EST) Hemoglobin A1C 5.8 <6.5 % LAB CHEMISTRY METHOD 10/04/2024 12:38 PM EST [facility] Mean Bld Glu Estim. 120 mg/dL LAB CHEMISTRY METHOD 10/04/2024 12:38 PM EST [facility] Blood Venous blood specimen / Unknown Venipuncture / Unknown 10/04/2024 9:07 AM EST 10/04/2024 9:07 AM EST Julia LORA LAB BLOOD ORDERABLES Fi nal Result [facility] [address] [place] [address], * Lipid panel with reflex to direct LDL (09/14/2024 10:46 AM EST) Cholesterol 170 0 - 200 mg/dL LAB CHEMISTRY METHOD 09/14/2024 2:33 PM EST [facility] Triglycerides 120 0 - 150 mg/dL LAB CHEMISTRY METHOD 09/14/2024 2:33 PM [facility] HDL 63 >=40 mg/dL LAB CHEMISTRY METHOD 09/14/2024 2:33 PM [facility] LDL Calculated 83 0 - 100 mg/dL LAB CHEMISTRY METHOD 09/14/2024 2:33 PM [facility] VLDL Cholesterol Shilo 24 mg/dL LAB CHEMISTRY METHOD 09/14/2024 2:33 PM [facility] Non HDL Chol. (LDL+VLDL) 107 <145 mg/dL LAB CHEMISTRY METHOD 09/14/2024 2:33 PM [facility] Chol/HDL Ratio 2.7 0.0 - 4.4 LAB CHEMISTRY METHOD 09/14/2024 2:33 PM [facility] Blood Venous blood specimen / Unknown Venipuncture / Unknown 09/14/2024 10:46 AM EST 09/14/2024 10:46 AM EST Julia LORA LAB BLOOD ORDERABLES Fi nal Result [facility] [address] [place] [address], * (ABNORMAL) Comprehensive metabolic panel (09/14/2024 10:46 AM EST) Sodium 139 133 - 145 mmol/L LAB CHEMISTRY METHOD 09/14/2024 2:33 PM [facility] Potassium 4.6 3.5 - 5.5 mmol/L LAB CHEMISTRY METHOD 09/14/2024 2:33 PM [facility] Chloride 107 96 - 110 mmol/L LAB CHEMISTRY METHOD 09/14/2024 2:33 PM [facility] CO2 26 21 - 32 mmol/L LAB CHEMISTRY METHOD 09/14/2024 2:33 PM [facility] Anion Gap 6 3 - 11 LAB CHEMISTRY METHOD 09/14/2024 2:33 PM [facility] Glucose 110(H) 70 - 100 mg/dL LAB CHEMISTRY METHOD 09/14/2024 2:33 PM [facility] BUN 12 5 - 25 mg/dL LAB CHEMISTRY METHOD 09/14/2024 2:33 PM [facility] Creatinine 0.73 0.50 - 1.10 mg/dL LAB CHEMISTRY METHOD 09/14/2024 2:33 PM [facility] eGFR 94 >=60 mL/min/1. 73m2 LAB CHEMISTRY METHOD 09/14/2024 2:33 PM [facility] Comment:Calculation based on the??Chronic Kidney Disease Epidemiology Collaboration (CKD-EPI) equation refit??without adjustment for race. BUN/Creatinine Ratio 16.4 LAB CHEMISTRY METHOD 09/14/2024 2:33 PM [facility] Calcium 9.6 8.5 - 10.5 mg/dL LAB CHEMISTRY METHOD 09/14/2024 2:33 PM [facility] AST (SGOT) 23 10 - 42 unit/L LAB CHEMISTRY METHOD 09/14/2024 2:33 PM [facility] ALT (SGPT) 28 10 - 60 unit/L LAB CHEMISTRY METHOD 09/14/2024 2:33 PM [facility] Alkaline Phosphatase 66 42 - 121 unit/L LAB CHEMISTRY METHOD 09/14/2024 2:33 PM [facility] Total Protein 7.3 6.0 - 8.0 g/dL LAB CHEMISTRY METHOD 09/14/2024 2:33 PM [facility] Albumin 4.3 3.2 - 5.0 g/dL LAB CHEMISTRY METHOD 09/14/2024 2:33 PM [facility] Total Bilirubin 0.5 0.0 - 1.4 mg/dL LAB CHEMISTRY METHOD 09/14/2024 2:33 PM [facility] Blood Venous blood specimen / Unknown Venipuncture / Unknown 09/14/2024 10:46 AM EST 09/14/2024 10:46 AM EST Julia LORA LAB BLOOD ORDERABLES Fi nal Result [facility] [address] [place] [address], * (ABNORMAL) CBC auto differential (09/02/2024 10:47 AM EST) Pathologist [facility] [place] [facility] WBC 6.3 4.8 - 10.8 K/mcL LAB HEMETOLOGY METHOD 09/02/2024 11:40 AM EST [facility] RBC 4.70 3.80 - 4.80 M/mcL LAB HEMETOLOGY METHOD 09/02/2024 11:40 AM [facility] Hemoglobin 13.4 11.5 - 16.0 g/dL LAB HEMETOLOGY METHOD 09/02/2024 11:40 AM [facility] Hematocrit 42.5 35.0 - 47.0 % LAB HEMETOLOGY METHOD 09/02/2024 11:40 AM [facility] MCV 90.0 79.0 - 98.0 FL LAB HEMETOLOGY METHOD 09/02/2024 11:40 AM [facility] MCH 28.4 27.0 - 32.0 pcg LAB HEMETOLOGY METHOD 09/02/2024 11:40 AM [facility] MCHC 31.5(L) 32.0 - 37.0 g/dL LAB HEMETOLOGY METHOD 09/02/2024 11:40 AM [facility] RDW 13.0 11.0 - 15.0 % LAB HEMETOLOGY METHOD 09/02/2024 11:40 AM [facility] Platelets 245 130 - 400 K/mcL LAB HEMETOLOGY METHOD 09/02/2024 11:40 AM [facility] MPV 10.3 7.0 - 11.0 FL LAB HEMETOLOGY METHOD 09/02/2024 11:40 AM [facility] NRBC 0.0 <1.0 % LAB HEMETOLOGY METHOD 09/02/2024 11:40 AM [facility] NRBC Absolute 0.00 <0.10 K/mcL LAB HEMETOLOGY METHOD 09/02/2024 11:40 AM [facility] Neutrophils Relative 62.2 % LAB HEMETOLOGY METHOD 09/02/2024 11:40 AM [facility] Lymphocytes Relative 27.5 % LAB HEMETOLOGY METHOD 09/02/2024 11:40 AM [facility] Monocytes Relative 9.0 % LAB HEMETOLOGY METHOD 09/02/2024 11:40 AM [facility] Eosinophils Relative 0.5 % LAB HEMETOLOGY METHOD 09/02/2024 11:40 AM [facility] Basophils Relative 0.6 % LAB HEMETOLOGY METHOD 09/02/2024 11:40 AM [facility] Immature Granulocytes Relative 0.2 % LAB HEMETOLOGY METHOD 09/02/2024 11:40 AM [facility] Neutrophils Absolute 3.94 1.50 - 7.00 K/mcL LAB HEMETOLOGY METHOD 09/02/2024 11:40 AM [facility] Lymphocytes Absolute 1.74 1.00 - 5.00 K/mcL LAB HEMETOLOGY METHOD 09/02/2024 11:40 AM [facility] Monocytes Absolute 0.57 0.20 - 1.00 K/mcL LAB HEMETOLOGY METHOD 09/02/2024 11:40 AM [facility] Eosinophils Absolute 0.03 0.00 - 0.50 K/mcL LAB HEMETOLOGY METHOD 09/02/2024 11:40 AM [facility] Basophils Absolute 0.04 0.00 - 0.20 K/[facility] LAB HEMETOLOGY METHOD 09/02/2024 11:40 AM [facility] Immature Granulocytes Absolute 0.01 0.00 - 0.03 K/[facility] HEMETOLOGY METHOD 09/02/2024 11:40 AM [facility] Blood Venous blood specimen / Unknown Venipuncture / Unknown 09/02/2024 10:47 AM EST 09/02/2024 11:27 AM EST us Kyler Dunn MD LAB BLOOD ORDERABLES Final Result [facility] [address] [place] [address], * Basic metabolic panel (09/02/2024 10:47 AM EST) Sodium 137 133 - 145 mmol/L LAB CHEMISTRY METHOD 09/02/2024 11:48 AM [facility] Potassium 4.5 3.5 - 5.5 mmol/L LAB CHEMISTRY METHOD 09/02/2024 11:48 AM [facility] Chloride 107 96 - 110 mmol/L LAB CHEMISTRY METHOD 09/02/2024 11:48 AM [facility] CO2 27 21 - 32 mmol/L LAB CHEMISTRY METHOD 09/02/2024 11:48 AM [facility] Anion Gap 3 3 - 11 LAB CHEMISTRY METHOD 09/02/2024 11:48 AM [facility] Glucose 100 70 - 100 mg/dL LAB CHEMISTRY METHOD 09/02/2024 11:48 AM [facility] BUN 14 5 - 25 mg/dL LAB CHEMISTRY METHOD 09/02/2024 11:48 AM [facility] Creatinine 0.75 0.50 - 1.10 mg/dL LAB CHEMISTRY METHOD 09/02/2024 11:48 AM EST [facility] eGFR 91 >=60 mL/min/1. 73m2 LAB CHEMISTRY METHOD 09/02/2024 11:48 AM EST [facility] Comment:Calculation based on the??Chronic Kidney Disease Epidemiology Collaboration (CKD-EPI) equation refit??without adjustment for race. BUN/Creatinine Ratio 18.7 LAB CHEMISTRY METHOD 09/02/2024 11:48 AM EST [facility] Calcium 9.5 8.5 - 10.5 mg/dL LAB CHEMISTRY METHOD 09/02/2024 11:48 AM EST [facility] Blood Venous blood specimen / Unknown Venipuncture / Unknown 09/02/2024 10:47 AM EST 09/02/2024 11:27 AM EST Kyler Dunn MD LAB BLOOD ORDERABLES Final Result Performing Organization Address City/[facility]/ZIP Co de Phone Number [facility] [address] [place] [address], [place] [phone] * ECG 12 lead (09/02/2024 10:43 AM EST) Only the most recent of2 resultswithin the time period is included. Ventricular Rate ECG 57 BPM GEMUSE Atrial Rate 57 BPM GEMUSE P-R Interval 130 ms GEMUSE QRS Duration 74 ms GEMUSE Q-T Interval 460 ms GEMUSE QTc 447 ms GEMUSE P Wave Bassett 72 degrees GEMUSE R Bassett 23 degrees GEMUSE T Bassett 30 degrees GEMUSE ECG Interpretation Sinus bradycardia [...] AM EDT Narrative 06/09/2024 10:45 AM EDT [facility] Diagnostic Imaging Department [address] [place] [address] Patient: ??CUELLO,MOON Y ?/Age/Sex: 1965 - 58 - F Unit#: ??[id number] ? Location/Status: ??SPDICATLS/REG CLI ? Mnemonic/Ordering Site: ??CTLUNGLD/SPCT Ordering Physician: ??MICA ENGLE MD CT Lung Screening Low Dose - 06/09/24 - 1013 Report Status:Signed INDICATION: Quit 4 years ago with 41 pack-year smoking history FINDINGS: Low-dose CT scan of the chest obtained as a lung cancer screening study. Scanner: FlowJob speed 64 slice VCT Dose reduction technique: [...] Procedure Note Jayson Mora MD - 06/18/2024 [facility] Diagnostic Imaging Department [address] [place] [address] Patient: MOON CUELLO Y /Age/Sex: 1965 - 58 - F Unit#: [id number] [facility] Mnemonic/Ordering Site: [facility] Ordering Physician: MICA ENGLE MD CT Lung Screening Low Dose - 06/09/24 - 1013 Report Status:Signed INDICATION: Quit 4 years ago with 41 pack-year smoking history FINDINGS: Low-dose CT scan of the chest obtained as a lung cancerscreening study. Scanner: FlowJob speed 64 slice VCT Dose reduction technique: [...] Sign date/Time: 06/09/24 1045 Mica Engle MD IM CT PROCEDURES Final Result * Cervical Cancer Screening: HPV (07/25/2019) Cervical Cancer Screening: HPV Negative, Abstracted Historical Provider HEALTH MAINTENANCE Final Result * [facility] SCREENING DIGITAL (04/13/2019 11:28 AM EDT) Anatomical Region Laterality Modality Mammography 04/13/2019 9:19 AM EDT Narrative 04/13/2019 11:28 AM EDT [facility] Diagnostic Imaging Department [address] [place], [place] [id number] Patient: ??CUELLO,MOON Y ?/Age/Sex: 1965 - 53 - F Unit#: ??[id number] ? Location/Status: ??SPDIMAM/REG CLI ? Mnemonic/Ordering Site: ??DIGSC/SPMAM Ordering Physician: ??SHRUTI FRANK DO Roya Screening Digital - 04/13/19 - 0948 INDICATION: SCREENING COMPARISON: 12/17/2016 and additional outside exams of 12/20/2014 and 05/26/2013 TECHNIQUE: CC and MLO views of the breasts were obtained, using full field digital mammography with 3D tomosynthesis views in the MLO projection. Computer aided detection with the ExploraMed 7.2-H was employed. FINDINGS: The breasts contain [...] date for the next mammogram. ([id number] / [id number]) , ??[id number] Dictating Physician: ??ANGELITO HAWTHORNE MD Electronically Signed by: ??ANGELITO HAWTHORNE MD Dic Date/Time: ??04/13/19 1122 Sign date/Time: ??04/13/19 1128 Procedure Note Angelito Hawthorne - 08/06/2022 [facility] Diagnostic Imaging Department [address] [place], [place] [id number] Patient: MOON CUELLO /Age/Sex: 1965 - 53 - F Unit#: [id number] Location/Status: SPDIMAM/REG CLI Mnemonic/Ordering Site: [facility] Ordering Physician: SHRUTI FRANK DO Roya Screening Digital - 04/13/19 - 947 INDICATION: SCREENING COMPARISON: 12/17/2016 and additional outside exams of 12/20/2014 and05/26/2013 TECHNIQUE: CC and MLO views of the breasts were obtained, using full field digital mammography with 3D tomosynthesis views in the MLO projection. Computer aided detection with the ExploraMed 7.2-H was employed. FINDINGS: The breasts contain [...] a target date for the next mammogram. 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
--- OUTSIDE RECORDS SUMMARY | 2024-10-05 10:52 | XMS_ITS | Encounter Summary ---
Author Organization [employer] [facility] Address [address] [place] [address] [address] [place] [address] Care Team Providers Care Oracle Consultant Name Role Phone Unavailable Primary Care Provider [...]
--- OUTSIDE RECORDS SUMMARY | 2024-10-05 10:52 | XMS_ITS | Encounter Summary ---
Author Organization [facility] Address [address] [place] [address] Care Team Providers Care Residence Director Name Role Phone Logan Snyder MD Primary Care Provider [phone] Encounter Details Date Type Department Care Team (Late Contact Info) Description 09/30/2024 Telephone Lung Screening Program [address] [phone] Ericka Espinoza MA Social History Tobacco Use Types Packs/Day Years [...] as of this encounter Progress Notes * Ericka Espinoza MA - 09/30/2024 2:46 PM EST Final Outreach Chart disassemble documented in this encounter Plan of Treatment Upcoming Encounters Date Type Department Care Team (Late Contact Info) Description 03/16/2025 3:45 PM EDT Office Visit Adult Medicine [address] [phone] Logan Snyder MD [address] [place] [address] documented as of this encounter Visit Diagnoses Not on filedocumented in this encounter Care Teams Residence Director Relationship Specialty Start Date End Date Logan Snyder MD [address] [place] [phone] PCP - General Internal Medicine 06/17/21 documented as of this encounter
--- OUTSIDE RECORDS SUMMARY | 2024-10-05 10:52 | XMS_ITS | Clinical Summary ---
Author Organization [employer] [facility] Address [address] [place] [address] [address] [place] [address] Care Team Providers Care Track Watchman Name Role Phone Unavailable Primary Care Provider [...]
--- OUTSIDE RECORDS SUMMARY | 2024-10-05 10:52 | XMS_ITS | Encounter Summary ---
Author Organization [facility] Address [address] [place] [address] Care Team Providers Care Supervisor [employer]actor [employer] Name Role Phone Logan Snyder MD Primary Care Provider [phone] Reason for Referral * Consultation (Routine) - Authorized Specialty Diagnoses / Procedures Referred By Sheyla hale Referred To Contact Gastroenterology Diagnoses Screening for malignant neoplasm of colon Jarad Crawford PA [address] [place] [address] Phone: tel: fax: Endoscopy [address] [place] [phone] Phone: tel: Referral ID Status Reason Start Date Expiration Date Visits Requested Visits Authorized [id number] Authorized Specialty Services Required 09/14/2024 09/14/2025 1 1 Reason for Visit * Reason Comments med review Encounter Details Date Type Department Care Team (Late st Contact Info) Description 09/14/2024 9:45 AM EST Office Visit Adult Medicine [address] [phone] Jarad Crawford PA [address] [place] [address] Screening for malignant neoplasm of colon (Primary Dx); Hyperlipidemia, unspecified hyperlipidemia type; Allergic rhinitis, unspecified seasonality, unspecified trigger; Gastroesophageal reflux disease, unspecified whether esophagitis present; Polymyalgia rheumatica ([facility]); Chronic neck pain with history of cervical spinal surgery; 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[facility]); Elevated glucose Social History Tobacco Use Types [...] to the office today for medication review. [place] interpretation is provided via video transfer controller Alyssa, #[id number]. Hyperlipidemia: Last lipid panel from 01/2024 shows LDL at 84. The patient is on atorvastatin 80 mg. GERD: Patient with acid reflux. She is on omeprazole 20 mg. Symptoms are well-controlled. Polymyalgia rheumatica/fibromyalgia/osteoarthritis: Patient with chronic pain secondary to fibromyalgia, polymyalgia rheumatica and osteoarthritis. She follows with [facility] (Dr. Pacheco).Symptoms have been controlled with use of gabapentin. Patient notes she was referred to see [facility] (Dr. Flood) for management of carpal tunnel [...] loss 12/11/2015 COPD (chronic obstructive pulmonary disease) ([facility]) 05/30/2014 Multiple pulmonary nodules 01/23/2014 Hyperlipidemia 04/12/2013 [...] unspecified whether esophagitis present 5. Polymyalgia rheumatica ([facility]) 6. Chronic neck pain with history of cervical spinal surgery 7. 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[facility]) PLAN: Hyperlipidemia: Lipid panel ordered. Continue atorvastatin [...] 3:45 PM EDT Office Visit Adult Medicine [facility] [address] [place] [address] Logan Snyder MD [address] [place] [address] Scheduled Referrals Name Type Priority Associated Diagnoses Order Schedule Ambulatory referral to Gastroenterology Outpatient Referral Routine Screening for malignant neoplasm of colon 1 Occurrences starting 09/14/2024 until 09/14/2025 documented as of this encounter Results * Hemoglobin A1c (10/04/2024 9:07 AM EST) Pathologist [facility] Hemoglobin A1C 5.8 <6.5 % LAB CHEMISTRY METHOD 10/04/2024 12:38 PM EST [facility] Mean Bld Glu Estim. 120 mg/dL LAB CHEMISTRY METHOD 10/04/2024 12:38 PM EST [facility] Blood Venous blood specimen / Unknown Venipuncture / Unknown 10/04/2024 9:07 AM EST 10/04/2024 9:07 AM EST Jarad LORA LAB BLOOD ORDERABLES Fi nal Result [facility] [address] [place] [address], * Lipid panel with reflex to direct LDL (09/14/2024 10:46 AM EST) Cholesterol 170 0 - 200 mg/dL LAB CHEMISTRY METHOD 09/14/2024 2:33 PM EST [facility] Triglycerides 120 0 - 150 mg/dL LAB CHEMISTRY METHOD 09/14/2024 2:33 PM EST [facility] HDL 63 >=40 mg/dL LAB CHEMISTRY METHOD 09/14/2024 2:33 PM [facility] LDL Calculated 83 0 - 100 mg/dL LAB CHEMISTRY METHOD 09/14/2024 2:33 PM [facility] VLDL Cholesterol Shilo 24 mg/dL LAB CHEMISTRY METHOD 09/14/2024 2:33 PM [facility] Non HDL Chol. (LDL+VLDL) 107 <145 mg/dL LAB CHEMISTRY METHOD 09/14/2024 2:33 PM [facility] Chol/HDL Ratio 2.7 0.0 - 4.4 LAB CHEMISTRY METHOD 09/14/2024 2:33 PM [facility] Blood Venous blood specimen / Unknown Venipuncture / Unknown 09/14/2024 10:46 AM EST 09/14/2024 10:46 AM EST Jarad LORA LAB BLOOD ORDERABLES Fi nal Result [facility] [address] [place] [address], * (ABNORMAL) Comprehensive metabolic panel (09/14/2024 10:46 AM EST) Sodium 139 133 - 145 mmol/L LAB CHEMISTRY METHOD 09/14/2024 2:33 PM [facility] Potassium 4.6 3.5 - 5.5 mmol/L LAB CHEMISTRY METHOD 09/14/2024 2:33 PM [facility] Chloride 107 96 - 110 mmol/L LAB CHEMISTRY METHOD 09/14/2024 2:33 PM [facility] CO2 26 21 - 32 mmol/L LAB CHEMISTRY METHOD 09/14/2024 2:33 PM [facility] Anion Gap 6 3 - 11 LAB CHEMISTRY METHOD 09/14/2024 2:33 PM [facility] Glucose 110(H) 70 - 100 mg/dL LAB CHEMISTRY METHOD 09/14/2024 2:33 PM [facility] BUN 12 5 - 25 mg/dL LAB CHEMISTRY METHOD 09/14/2024 2:33 PM [facility] Creatinine 0.73 0.50 - 1.10 mg/dL LAB CHEMISTRY METHOD 09/14/2024 2:33 PM [facility] eGFR 94 >=60 mL/min/1. 73m2 LAB CHEMISTRY METHOD 09/14/2024 2:33 PM [facility] Comment:Calculation based on the??Chronic Kidney Disease Epidemiology Collaboration (CKD-EPI) equation refit??without adjustment for race. BUN/Creatinine Ratio 16.4 LAB CHEMISTRY METHOD 09/14/2024 2:33 PM [facility] Calcium 9.6 8.5 - 10.5 mg/dL LAB CHEMISTRY METHOD 09/14/2024 2:33 PM [facility] AST (SGOT) 23 10 - 42 unit/L LAB CHEMISTRY METHOD 09/14/2024 2:33 PM [facility] ALT (SGPT) 28 10 - 60 unit/L LAB CHEMISTRY METHOD 09/14/2024 2:33 PM [facility] Alkaline Phosphatase 66 42 - 121 unit/L LAB CHEMISTRY METHOD 09/14/2024 2:33 PM [facility] Total Protein 7.3 6.0 - 8.0 g/dL LAB CHEMISTRY METHOD 09/14/2024 2:33 PM [facility] Albumin 4.3 3.2 - 5.0 g/dL LAB CHEMISTRY METHOD 09/14/2024 2:33 PM [facility] Total Bilirubin 0.5 0.0 - 1.4 mg/dL LAB CHEMISTRY METHOD 09/14/2024 2:33 PM EST [facility] Blood Venous blood specimen / Unknown Venipuncture / Unknown 09/14/2024 10:46 AM EST 09/14/2024 10:46 AM EST Jarad LORA LAB BLOOD ORDERABLES Fi nal Result [facility] [address] [place] [address], documented in this encounter Visit Diagnoses Diagnosis [...] documented as of this encounter Care Teams Supervisor [employer] Relationship Specialty Start Date End Date Logan Snyder MD [address] [place] [id number] PCP - General Internal Medicine 06/17/21 documented as of this encounter
[2024-10-05 10:56] VITALS: BP 130/82; PULSE 71; O2SAT 96; BMI 25.4
== END 2024-10-05 11:41 | disposition home or self-care (01) ==
PROVIDERS: PCP Internal Medicine; Visit Provider Student in an Organized Health Care Education/Training Program
DX: M79.7 Fibromyalgia (principal); M35.3 Polymyalgia rheumatica
CPT/HCPCS: 99213

== ENCOUNTER → 2024-10-05 10:16 | Outpatient (BNVA) | payer OTHER, SELFPAY | PROVIDERS: PCP Internal Medicine; Visit Provider Student in an Organized Health Care Education/Training Program | DX: M79.7 Fibromyalgia (principal); M35.3 Polymyalgia rheumatica | CPT/HCPCS: 99212 ==

== ENCOUNTER 2024-11-11 08:15 | Outpatient (AMB) | payer OTHER, SELFPAY ==
[2024-11-11 08:25] VITALS: BP 116/70; PULSE 67; O2SAT 96; BMI 25.2
--- NOTE | 2024-11-11 08:25 | MHC.OFFVIS ---
Vital Signs 11/11/24 08:25 Height 5 ft 2 in Weight 137 lb 12.623 oz BMI 25.2 BP 116/70 Blood Pressure Location Lt brachial Position Sitting Pulse 67 Pulse Source Pulse Oximeter Pulse Oximetry (%) 96 Oxygen Delivery Method Room Air Intake Visit Reasons: OA Intake Note: Patient presents today for follow up on osteoarthritis today, she last saw Dr. Urrutia on 10/05/2024. Patient is in a great deal of pain, from the knee to the inner thighs, she states Junior Sanchez gave her an injection and it helped a lot. She states both sides hurt, the knees are the worse. She mentioned that Dr. Pacheco put in an infusion order, but no one ever got in touch with her. Allergies latex Allergy (Intermediate, Verified 11/11/24 08:31) Dry skin weed pollen Allergy (Intermediate, Verified 11/11/24 08:31) Anaphylaxis Medication List - Last Reconciled 11/11/24 by Erum Urrutia MD albuterol sulfate 90 mcg/actuation inhalation atorvastatin 80 mg PO DAILY budesonide-formoterol 160-4.5 mcg/actuation 2 puffs inhalation BID cholecalciferol (vitamin D3) 25 mcg PO BID gabapentin 600 mg (2 x 300 mg) PO BID 30 days ibuprofen 600 mg PO Q6H PRN ipratropium-albuterol 0.5 mg-3 mg(2.5 mg base)/3 mL mL inhalation loratadine 10 mg PO DAILY PRN meclizine 25 mg PO TID omeprazole 40 mg PO DAILY ondansetron 4 mg PO Q8H 4 days HPI Comments Details: Patient is a 59-year-old female with COPD, hyperlipidemia, depression/anxiety, polyarticular osteoarthritis, osteoporosis, PMR and fibromyalgia here today for follow up Interval History: Last seen 10/05/24 with me. Continues to complain of pain and anesthesia in her lower extremities. Undergoing surgical evaluation for bilateral severe carpal tunnel syndrome. Had no return of her PMR symptoms. Today, She is here for an urgent visit for bilateral knee steroid injection for knee OA Rheumatologic History: PMR Dx 2018. Tapered off prednisone 2021 Current Rheumatology Medication(s): Vitamin-D Gabapentin 300 mg b.i.d. [facility] Surgical History H/O cervical spine surgery Hx of section H/O bilateral hip replacements History of eye surgery History of appendectomy Family History Father Emphysema lung Mother Hypertension Arthritis Diabetes Social History Household Members: None Alcohol intake: never Patient Tobacco Use Status: Former Tobacco user Substance Use Type: Marijuana Current occupational status: disabled Review of Systems Const Details: Review of Systems Constitutional: Denies fever, chills, weight loss ENT: Denies vision changes, eye pain or eye redness, dental caries, dry mouth GI: Denies nausea, vomiting, diarrhea, abdominal pain, change in BM Pulm: Denies SOB, FRANKLIN, hemoptysis, wheezing Cards: Denies chest pain, palpitations Skin: Denies Raynaud's, rash, nail changes, photosensitivity, SANDWICH PEDDLER: Denies headaches, weakness, paresthesias, recurrent falls MSK: as per HPI All other systems reviewed and are unremarkable except noted above Physical Exam Vital Signs: Last Vital Signs Pulse 67 11/11/24 08:25 BP 116/70 11/11/24 08:25 Pulse Ox 96 11/11/24 08:25 Oxygen Delivery Method Room Air 11/11/24 08:25 BMI result Body Mass Index 25.2 Vital signs reviewed Physical Examination CONSTITUITIONAL Patient alert and cooperative. Well appearing and in no apparent painful distress HEENT Conjunctiva and sclera clear. ?Pupils equal round and reactive to light. ?No lymphadenopathy. ? CHEST/RESPIRATORY SYSTEM Normal respiratory effort and able to speak in complete sentences. ?Clear to auscultation bilaterally. ?No crackles, rales, rhonchi, wheezes heard. CARDIAC SYSTEM Regular rate and rhythm. ?S1 and S2 heard no murmurs. ?Radial pulses intact bilaterally MSK Hands: ?Good skip loader strength bilaterally. No deformities noted. ?No synovitis noted to the MCPs, PIPs or DIPs. ?No tenderness to palpation of these joints. Wrists: ?Full range of motion at the wrists without pain. ?No tenderness to palpation or synovitis noted to the wrists. Elbows: Full range of motion without pain. No tenderness, weakness, swelling, increased warmth or erythema. Shoulders: Full range of motion without pain. No tenderness, weakness, swelling, increased warmth or erythema. Hips: Full range of motion without pain. TTP of the groin area Knees: ?Right knee with full ROM. Left knee decreased range of motion to flexion. Ankles: Full range of motion. ?No tenderness, swelling, increased warmth or erythema.? Feet: ?Negative squeeze test. ?No tenderness to palpation or swelling of the MTPs. Tender points:?No tenderness to palpation of the bilateral trapezius, supraspinatus, greater trochanters, anterior costochondral junctions, bilateral gluteal areas, bilateral suboccipital muscle insertions SKIN Skin intact without rashes. Office Procedures AMB Joint Injection/Aspiration Joint Injection/Aspiration Details: Procedure was explained to the patient and consent was obtained. ? The area of interest was identified and confirmed with patient. ?This was subsequently cleaned with chlorhexidine x3. ? The area was then anesthetized using ethyl chloride spray. 40 mg Kenalog with 1 cc 1% lidocaine was injected without issue. ?Minimal to no bleeding. ?Patient tolerated procedure. Primary Site: right knee Prep: site was prepped using aseptic technique and ethochloride spray was applied Injected: 40 mg of, Kenalog, with 1 mL of and 1% plain lidocaine Approach Used: anterior Procedure: The patient tolerated the procedure well Coding 71305 - Large joint Procedure code (CPT) selection complete AMB Joint Injection/Aspiration Joint Injection/Aspiration Details: Procedure was explained to the patient and consent was obtained. ? The area of interest was identified and confirmed with patient. ?This was subsequently cleaned with chlorhexidine x3. ? The area was then anesthetized using ethyl chloride spray. 40 mg Kenalog with 1 cc 1% lidocaine was injected without issue. ?Minimal to no bleeding. ?Patient tolerated procedure. Primary Site: left knee Prep: site was prepped using aseptic technique and ethochloride spray was applied Injected: 40 mg of, Kenalog, with 1 mL of and 1% plain lidocaine Procedure: The patient tolerated the procedure well Coding 05496 - Large joint Procedure code (CPT) selection complete Office Meds lidocaine (PF) 10 mg/mL (1 %) injection solution Performing Provider: Erum Urrutia MD Performing Location: [facility] Administered by: Erum Urrutia MD on 11/11/24 09:16 Dose Route Admin Location Dispensed Lot Number Expiration Date [facility] [place] Senior Mechanical Project Engineer 1 mL Infiltration right knee 2 mL [id number] [employer] Kenalog 40 mg/mL suspension for injection Performing Provider: Erum Urrutia MD Performing Location: [facility] Administered by: Erum Urrutia MD on 11/11/24 09:16 Dose Route Admin Location Dispensed Lot Number Expiration Date [employer] Senior Mechanical Project Engineer 40 mg intra-articular right knee 1 mL [id number] 02/14/26 [address]-4 [employer] lidocaine (PF) 10 mg/mL (1 %) injection solution Performing Provider: Erum Urrutia MD Performing Location: [facility] Administered by: Erum Urrutia MD on 11/11/24 09:16 Dose Route Admin Location Dispensed Lot Number Expiration Date [place] Senior Mechanical Project Engineer 1 mL Infiltration left knee 2 mL [id number] 11/15/26 59862-452-48 [employer] Kenalog 40 mg/mL suspension for injection Performing Provider: Erum Urrutia MD Performing Location: [facility] Administered by: Erum Urrutia MD on 11/11/24 09:16 Dose Route Admin Location Dispensed Lot Number Expiration Date [facility] [place] Senior Mechanical Project Engineer 40 mg intra-articular left knee 1 mL [id number] [employer] Results Reviewed Results Reviewed: EMG 08/2024 FINDINGS: Bilateral median motor nerves showed prolonged distal latency, normal amplitude and normal conduction velocity. Bilateral median sensory nerves showed prolonged peak latency, and small amplitude. Left median sensory nerve showed peak latency. All other nerves tested were within normal. Concentric needle EMG was performed in selected muscles of the bilateral upper extremities and lower extremities. Study did not reveal signs of electric abnormalities as shown in the table above. IMPRESSION: 1. This is an abnormal study. 2. There is electrodiagnostic evidence for bilateral moderate-severe median neuropathy at the wrist, consistent with carpal tunnel syndrome. 3. There is no electrodiagnostic evidence for ulnar neuropathy, brachial plexopathy, cervical radiculopathy, peroneal neuropathy, tibial neuropathy. lumbosacral plexopathy, lumbar radiculopathy, or peripheral neuropathy. XR Bilateral Knees 07/2022 FINDINGS: Left: There is an old healed left distal femoral shaft and condylar fracture. There is severe arthritis at the patellofemoral joint and mild arthritis at the lateral femoral tibial joint. There is a small joint effusion. Standing AP view of the right knee is unremarkable. Assessment & Plan Assessment & Plan (1) Osteoarthritis of both knees: Code(s): M17.0 - Bilateral primary osteoarthritis of knee Qualifiers: Osteoarthritis type: primary Qualified Code(s): M17.0 - Bilateral primary osteoarthritis of knee Plan: #Bilateral knee OA Patient is a 59 y.o. female with PMR currently in remission, fibromyalgia, osteoporosis and polyarticular OA here today for an urgent visit for bilateral knee pain requesting an injection. Patient has bilateral knees injected without issue Patient to keep already scheduled follow up appointment Plan I spent 20 minutes reviewing the record and labs, taking a history, examining the patient, discussing the treatment plan, ordering diagnostic work up and documenting in the medical record Orders: Orders Complete Blood Count Auto Diff Today M35.3 - Polymyalgia rheumatica Comprehensive Met. Panel Today M35.3 - Polymyalgia rheumatica Erythrocyte Sedimentation Rate Today M35.3 - Polymyalgia rheumatica C Reactive Protein Today M35.3 - Polymyalgia rheumatica AMB Joint Injection/Aspiration Today M17.0 - Bilateral primary osteoarthritis of knee AMB Joint Injection/Aspiration Today M17.0 - Bilateral primary osteoarthritis of knee Medications: New lidocaine (PF) 1 mL Infiltration ONCE 2 mL 0RF M17.0 - Bilateral primary osteoarthritis of knee Kenalog (triamcinolone acetonide) 40 mg intra-articular ONCE 1 mL 0RF NS M17.0 - Bilateral primary osteoarthritis of knee lidocaine (PF) 1 mL Infiltration ONCE 2 mL 0RF M17.0 - Bilateral primary osteoarthritis of knee Kenalog (triamcinolone acetonide) 40 mg intra-articular ONCE 1 mL 0RF NS M17.0 - Bilateral primary osteoarthritis of knee Coding Level of Care Code Est Pt Level 3 (54330) Complex EM visit Add On G2211 Diagnoses Primary osteoarthritis of both knees M17.0 Osteoarthritis type: primary CPT Codes Coding - 85235 Large joint: 47345 - Large joint ([id number]) Coding - 51591 Large joint: 99056 - Large joint ([id number])
== END 2024-11-11 09:04 | disposition home or self-care (01) ==
LOC: HO.RHE 08:16
PROVIDERS: PCP Internal Medicine; Visit Provider Student in an Organized Health Care Education/Training Program
DX: M17.0 Bilateral primary osteoarthritis of knee (principal)
CPT/HCPCS: 20610; 99213

== ENCOUNTER → 2024-11-11 08:15 | Outpatient (BNVA) | payer OTHER, SELFPAY | PROVIDERS: PCP Internal Medicine; Visit Provider Student in an Organized Health Care Education/Training Program | DX: M17.0 Bilateral primary osteoarthritis of knee (principal) | CPT/HCPCS: 20610; 99212; J3300 ==

== ENCOUNTER 2024-12-12 05:50 | Day surgery (SDC) | payer OTHER, SELFPAY ==
[2024-12-12 06:52] VITALS: BP 137/50; PULSE 59; RESP 12; TEMP 36.8; O2SAT 98; BMI 24.6
--- NOTE | 2024-12-12 08:00 | MHC.SHP ---
Pre-Procedural Eval Section A - 24 Hr Update-Section A only Date of Service: 12/12/24 The patient is an INPATIENT: No Changes since office visit: No Cold of Flu in the past 2 weeks, No New Medical Problems, No Changes in Medication and No Patient answered all questions The patient has been examined within 24 hours of the surgical procedure. The History & Physical has been completed within 30 days and I have reviewed it.: Yes Section B - Complete if H&P > 30 days Chief Complaint: Carpal tunnel syndrome, right upper limb Allergies: Allergies Allergy/AdvReac Type Severity Reaction Status Date / Time latex Allergy Intermediate Dry skin Verified 12/12/24 06:52 weed pollen Allergy Intermediate Anaphylaxis Verified 12/12/24 06:52 Plan Diagnosis/Plan: Unchanged I have reviewed the history and physical and performed a pertinent physical examination on my patient. No changes have occurred unless specified. Time Spent With Patient Time: Total time managing care of this patient today ____ minutes.
--- NOTE | 2024-12-12 08:01 | W.PM.OPN ---
Operative Note Operative Note Date of Service: 12/12/24 Narrative: Preop diagnosis: 1. Right Carpal tunnel syndrome Postop diagnosis: same Procedure: 1. Right Carpal tunnel release Surgeon: Hawa Nogueira MD Mechanical Design Engineer Facilities: None Anesthesia: local block using 1% lidocaine with epinephrine Findings: Thickened transverse carpal ligament. EBL: Less than 5 mL Specimens: None Complications: None Disposition: Brought to recovery room in stable condition Plan: Follow-up for 10-14 days for wound check and suture removal Indications: The patient is 59 years old, with right carpal tunnel syndrome that has been unresponsive to nonoperative management. The risks and benefits of operative treatment including but not limited to risk of damage to blood vessels, nerves, tendons, infection, persistent pain, persistent symptoms, or possible need for additional surgery were discussed with the patient and the patient wishes to proceed with surgery. Procedure: Once consent was obtained a local block was performed using a combination of 1% lidocaine with epinephrine. The patient was then brought back to the operating suite and placed on the operative table in supine position. The right upper extremity was prepped and draped in a standard surgical fashion. Once assured that we had a good block, a 2.0 cm longitudinal incision was made centered over the carpal tunnel. The incision was made through the skin to the subcutaneous tissues using a #15 blade. Dissection was made down to the level of the transverse carpal ligament with care being taken to protect the palmar cutaneous nerve. Once the transverse carpal ligament was clearly visualized, a longitudinal incision was made in the transverse carpal ligament 1st using a #15 blade, then using tenotomy scissors under direct visualization. Care was taken to look for and protect the motor branch of the median nerve when seen in this area. Once satisfied with our carpal tunnel release the wound was copiously irrigated with normal saline and hemostasis was obtained with a brief period of local pressure. The skin edges were reapproximated with some 5.0 nylon suture material and a sterile dressing was applied. The patient appears to have tolerated the procedure well and with no complications. All digits were well vascularized at the conclusion of the case.
[2024-12-12 08:28] VITALS: BP 116/65; PULSE 62; RESP 18; O2SAT 95
== END 2024-12-12 09:11 | disposition home or self-care (01) ==
PROVIDERS: PCP Internal Medicine; Visit Provider Orthopaedic Surgery
PROC: (CPT 64721; principal; 2024-12-12 07:30)
DX: G56.01 Carpal tunnel syndrome, right upper limb (principal); R20.0 Anesthesia of skin; M79.641 Pain in right hand; M25.641 Stiffness of right hand, not elsewhere classified; M79.7 Fibromyalgia; M35.3 Polymyalgia rheumatica; M06.9 Rheumatoid arthritis, unspecified; J44.9 Chronic obstructive pulmonary disease, unspecified; R91.8 Other nonspecific abnormal finding of lung field; Z79.83 Long term (current) use of bisphosphonates; Z96.643 Presence of artificial hip joint, bilateral; Z98.890 Other specified postprocedural states; Z91.040 Latex allergy status; Z91.09 Other allergy status, other than to drugs and biological substances; Z87.891 Personal history of nicotine dependence
CPT/HCPCS: 64721; J0171; J2003; J2004

== ENCOUNTER → 2024-12-12 05:50 | Outpatient (BNV) | payer OTHER, SELFPAY | PROVIDERS: PCP Internal Medicine; Visit Provider Orthopaedic Surgery | DX: G56.01 Carpal tunnel syndrome, right upper limb (principal) | CPT/HCPCS: 64721 ==

== ENCOUNTER 2024-12-27 14:55 | Outpatient (AMB) | payer OTHER, SELFPAY ==
--- NOTE | 2024-12-27 15:09 | MHC.OFFVIS ---
Vital Signs 12/27/24 15:15 Height 5 ft 2 in Weight 134 lb BMI 24.5 Intake Visit Reasons: PO RT CTR 12/12/24 AR Intake Note: Moon is a 59 year old female who presents today for a post operative visit after undergoing a right hand CTR on 12/12/[address] Nogueira. Patient reports her stitches had fallen out and she took the rest of the sutures out over the weekend due to itchiness. Her numbness and tingling has subsided. She denies any pain. Allergies latex Allergy (Intermediate, Verified 12/27/24 15:10) Dry skin weed pollen Allergy (Intermediate, Verified 12/27/24 15:10) Anaphylaxis HPI HPI PO RT CTR 12/12/24 AR: Details: Moon is a 59 year old female who presents today for a post operative visit after undergoing a right hand CTR on 12/12/[address] Nogueira. Patient reports her stitches had fallen out and she took the rest of the sutures out over the weekend due to itchiness. Her numbness and tingling has subsided. She denies any pain. [facility] Surgical History H/O cervical spine surgery Hx of section H/O bilateral hip replacements History of eye surgery History of appendectomy Family History Father Emphysema lung Mother Hypertension Arthritis Diabetes Social History Household Members: None Alcohol intake: never Patient Tobacco Use Status: Former Tobacco user Substance Use Type: Marijuana Current occupational status: disabled Review of Systems Const All systems reviewed & are unremarkable except as noted in HPI and below Physical Exam Vital Signs: BMI result Body Mass Index 24.5 Extrem Other: Patient is alert, oriented, and in no acute distress. Neuro: Normal sensation of the tips of all digits of the right hand at this time Vascular: Cap refill brisk Pain: No tenderness to palpation about the incision site on volar right wrist No pain with range of motion ROM: Patient is able to make a closed fist and extend all digits of the right hand fully Skin: Well approximated and well healing incision noted on the volar right wrist No lacerations or abrasions. General: No ecchymosis, erythema, or evidence of infection. Psych: Appears grossly normal Affect normal Attitude cooperative Assessment & Plan Assessment & Plan (1) Bilateral carpal tunnel syndrome: Code(s): G56.03 - Carpal tunnel syndrome, bilateral upper limbs Category: Medical Plan 1. Status post right carpal tunnel release DOS 12/12/2024 Patient appears to be recovering well postoperatively Patient is educated about the typical recovery course At this time, patient is informed that no acute follow-up as needed for this surgery, as she is recovering very well Patient is amenable to this plan 2. Left carpal tunnel syndrome Intermittent, daily, worse at night Patient would like to follow-up in 3-4 weeks to discuss operative intervention on the left side Patient is booked follow-up appointment at this timeframe Coding Level of Care Code Global (45083) Diagnoses Bilateral carpal tunnel syndrome G56.03
[2024-12-27 15:15] VITALS: BMI 24.5
--- OUTSIDE RECORDS SUMMARY | 2024-12-27 15:56 | XMS_ITS | Clinical Summary ---
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
--- OUTSIDE RECORDS SUMMARY | 2024-12-27 15:56 | XMS_ITS | Clinical Summary ---
Author Organization [address] [place] [address] Address [address] [place] [address] Phone Care Team Providers Care Natural Developer Name Role Phone Logan Snyder MD Primary Care Provider Allergies Active Allergy Reactions Criticality Noted Date Comments Latex 08/26/2023 Other 06/29/2013 Seasonal Allergies Medications gabapentin (NEURONTIN) 300 mg capsule Take 1 capsule (300 mg total) by mouth. 05/20/2022 Active budesonide-form oteroL (SYMBICORT) 160-4.5 mcg/actuation inhaler Inhale 2 puffs by mouth. 02/09/2023 Active albuterol HFA (PROAIR HFA ; PROVENTIL HFA ; VENTOLIN HFA) 90 mcg/actuation inhaler Inhale 2 puffs by mouth. 09/28/2023 Active prednisoLONE acetate (PRED FORTE) 1 % ophthalmic suspension 02/23/2023 Active acetaminophen (TYLENOL 8 HOUR) 650 mg 8 hr tablet TAKE 1 TABLET BY MOUTH EVERY 8 HOURS NEEDED FOR PAIN. 60 tablet 07/25/2024 Active loratadine (CLARITIN) 10 mg tablet Take 1 tablet (10 mg total) by mouth 1 (one) time each day. 90 tablet 07/29/2024 Active omeprazole (PriLOSEC) [address] capsule Take 1 capsule (40 mg total) by mouth 1 (one) time each day. Do not crush or chew. 90 each 1 09/14/2024 09/14/19 26 Active atorvastatin (LIPITOR) 80 mg tablet TAKE 1 TABLET BY MOUTH AT BEDTIME. 90 tablet 1 11/07/2024 Active ibuprofen (ADVIL,MOTRIN) 600 mg tablet TAKE 1 TABLET (600 MG TOTAL) BY MOUTH EVERY 6 (SIX) HOURS IF NEEDED FOR MODERATE PAIN. 60 tablet 11/08/2024 Active atorvastatin (LIPITOR) 80 mg tablet Take 1 tablet (80 mg total) by mouth 1 (one) time each day. at bedtime. 90 tablet 11/08/2024 Active amoxicillin-cla vulanate (AUGMENTIN) 875-125 mg per tablet Take 1 tablet by mouth 2 (two) times a day. 20 each 11/02/2024 Active Active Problems Problem Noted Date Diagnosed Date [...] of breath) 07/06/2024 GERD (gastroesophageal reflux disease) Glaucoma 05/17/2024 Tobacco use 05/17/2024 Polymyalgia rheumatica ([facility] V24) 05/17/2024 Chronic neck pain with history of [...] 09/03/2017 Hearing loss 12/11/2015 COPD (chronic obstructive pu lmonary disease) ([facility] V24, [facility] V28) 05/30/2014 Multiple pulmonary nodules 01/23/2014 Hyperlipidemia 04/12/2013 Osteoarthritis 04/12/2013 Encounters Date Type Department Care Team Description 11/02/2024 11:38 AM EDT - 11/02/2024 11:59 PM EDT Hospital Encounter [address] [phone] Right hip pain; Status post bilateral hip replacements Discharge Disposition: Home or Self Care 11/02/2024 11:00 AM EDT Office Visit Adult Medicine [address] [phone] Kelvin Solares PA Right hip pain (Primary Dx); Status post bilateral hip replacements; Dog bite of left thumb, initial encounter 11/01/2024 Nurse Triage Adult Medicine [address] [phone] Logan Snyder MD Hip Pain 10/10/2024 Telephone Adult Medicine [address] [phone] Logan Snyder MD Lab Results 10/03/2024 Nurse Triage Adult Medicine [address] [phone] Logan Snyder MD Hyperglycemia 09/30/2024 Telephone Lung Screening Program - [address] [phone] Ericka Espinoza MA from Last 3 Months Immunizations Name Administration Dates Next Due Hepatitis B (Fmycgys-Z-Maxyh , Recombivax HB-Adult) 19yo and older 08/03/2013 [...] Date Comments COPD (chronic obstructive pulmonary disease) ( [facility] V24, [facility] V28) Asthma Hyperlipidemia Diabetes mellitus ([facility] V24, [facility] V28) Hypertension Family History Medical History Relation Name Comments Lung cancer Father Hypertension Mother Relation Name Status Comments Father Mother Social History Tobacco Use Types Packs/Day Years Used Date Smoking Tobacco: Former Cigarettes Smokeless Tobacco: Never Tobacco Cessation:Counseling Given: Not Answered Alcohol Use Standard Drinks/Week Comments Not Currently 0 (1 standard drink = 0.6 oz pur e alcohol) Comments No Sex and Gender Information Value Date Recorded Sex Assigned at Not on file Legal Sex Female 3:50 AM EST Gender Identity Not on file Sexual Orientation Not on file Obstetrics History Last Filed Vital Signs Vital Sign Reading Time Taken Comments Blood Pressure 132/78 11/02/2024 10:54 AM EDT Pulse 68 11/02/2024 10:54 AM EDT Temperature 36.6 ??C (97.9 ??F) 11/02/2024 10:54 AM E DT Respiratory Rate 12 11/02/2024 10:54 AM EDT Oxygen Saturation 98% 09/14/2024 9:58 AM EST Inhaled Oxygen Concentration - - Weight 63.8 kg (140 lb 9.6 oz) 11/02/2024 10:54 AM EDT Height 157.5 cm (5' 2 ) 11/02/2024 10:54 AM EDT Body Mass Index 25.72 11/02/2024 10:54 AM EDT Plan of Treatment Upcoming Encounters Date Type Department Care Team (Late st Contact Info) Description 02/07/2025 11:00 AM EDT Appointment [facility] Endoscopy [address] [place] [phone] Shannon Blount MD [address] [address] 03/16/2025 3:45 PM EDT Office Visit Adult Medicine [facility] [address] [place] [phone] Logan Snyder MD [address] [place] [address] Health Maintenance Due Date Last Done Comments Hepatitis B Vaccines (2 of 3 - 19+ 3-dose series) 08/31/2013 08/03/2013 Zoster Vaccines (1 of 2) 2013 Breast Cancer Screening 04/13/2021 04/13/2019, 04/13 Depression Screening 07/26/2022 11/13/2020 HIV Screening 07/26/2022 Social Influencers of Health Screening 07/26/2022 RSV Immunization Adult Patients (1 - Risk 60-74 years 1-dose series) 2023 Pneumococcal Vaccine: 50+ Years (3 of 3 - PCV20 or PCV21) 03/07/2024 03/07/2019, 01/08/2016, 03/28/2014 Pneumococcal Vaccine: Pediatrics (0 to 5 Years) and At-Risk Patients (6 to 64 Years) (3 of 3 - PCV20 or PCV21) 03/07/2024 03/07/2019, 01/08/2016, 03/28/2014 COVID-19 Vaccine ( season) 2024 07/04/2021 Cervical Cancer Screening: HPV 07/25/2024 07/25/2019 Colorectal Cancer Screening: Colonoscopy 12/21/2024 12/21/2014 Influenza Vaccine (Season Ended) 2025 06/03/2021, 08/13/2020, 10/17/2019, Additional history exists Lung Cancer Screening (Low Dose CT) 06/09/2025 [...] age to complete this topic Meningococcal B Vaccine Aged Out No l onger eligible based on patient's age to complete this topic RSV Immunization Patients Under 20 months Aged Out No longer eligible based on patient's age to complete this topic Varicella Vaccines Aged Out No longer eligible based on patient's age to complete this topic Procedures Procedure Name Priority Date/Time Associated Diagnosis Comments XR HIP 2-3 VIEWS RIGHT Routine 11/02/2024 11:48 AM EDT Right hip pain Status post bilateral hip replacements HEMOGLOBIN A1C Routine 10/04/2024 9:07 AM EST Elevated glucose LIPID PANEL WITH REFLEX TO DIRECT LDL Routine 09/14/2024 10:46 AM EST Hyperlipidemia, unspecified hyperlipidemia type CT LUNG SCREENING LOW DOSE Routine 06/09/2024 10:45 AM EDT Personal history of nicotine dependence HPV Routine 07/25/2019 [facility] SCREENING DIGITAL Routine 04/13/2019 11:28 AM EDT Encounter for screening mammogram for malignant neoplasm of breast COLONOSCOPY Routine 12/21/2014 HEPATITIS C SCREENING Routine 03/01/2013 from Last 3 Months or Most Recently Relevant to Health Maintenance Results * XR Hip 2-3 Views Right (11/02/2024 11:48 AM EDT) Anatomical Region Laterality Modality Lower Extremities, Hip Right Radiograp hic Imaging 11/02/2024 2:30 PM EDT Impressions 11/02/2024 2:31 PM EDT No acute fracture. ??No radiographic evidence of hardware-related complications. -------- FINAL REPORT -------- Dictated By: Judith Higginbotham Dictated Date: 11/02/2024 14:30 ET Assigned Physician: Judith Higginbotham Reviewed and Electronically Signed By: Judith Higginbotham Signed Date: 11/02/2024 14:31 ET Workstation ID: [id number] Transcribed By: Self Edit Transcribed Date: 11/02/2024 14:30 ET Narrative 11/02/2024 2:31 PM EDT XR HIP 2-3 VIEWS RIGHT Reason: pain 2nd to fall, s/p replacement; r/o fx and misalignment Comparison: None FINDINGS: No acute fracture. ??Bilateral hip prosthesis, without findings to suggest fatty hardware lucency or subluxation. Procedure Note Judith Higginbotham MD - 11/02/2024 XR HIP 2-3 VIEWS RIGHT Reason: pain 2nd to fall, s/p replacement; r/o fx and misalignment Comparison: None FINDINGS: No acute fracture. Bilateral hip prosthesis, without findings to suggestfatty hardware lucency or subluxation. IMPRESSION: No acute fracture. No radiographic evidence of hardware-relatedcomplications. -------- FINAL REPORT -------- Dictated By: Judith Higginbotham Dictated Date: 11/02/2024 14:30 ET Assigned Physician: Judith Higginbotham Reviewed and Electronically Signed By: Judith Higginbotham Signed Date: 11/02/2024 14:31 ET Workstation ID: [id number] Transcribed By: Self Edit Transcribed Date: 11/02/2024 14:30 ET Kelvin LORA IMG XR PROCEDURES Final Result * Hemoglobin A1c (10/04/2024 9:07 AM EST) Hemoglobin A1C 5.8 <6.5 % LAB CHEMISTRY METHOD 10/04/2024 12:38 PM EST [facility] Mean Bld Glu Estim. 120 mg/dL LAB CHEMISTRY METHOD 10/04/2024 12:38 PM EST [facility] Blood Venous blood specimen / Unknown Venipuncture / Unknown 10/04/2024 9:07 AM EST 10/04/2024 9:07 AM EST Julia LORA LAB BLOOD ORDERABLES Fi nal Result [facility] [address] [place] [address], [place] [phone] * Lipid panel with reflex to direct LDL (09/14/2024 10:46 AM EST) Cholesterol 170 0 - 200 mg/dL LAB CHEMISTRY METHOD 09/14/2024 2:33 PM EST [facility] Triglycerides 120 0 - 150 mg/dL LAB CHEMISTRY METHOD 09/14/2024 2:33 PM [facility] HDL 63 >=40 mg/dL LAB CHEMISTRY METHOD 09/14/2024 2:33 PM EST [facility] LDL Calculated 83 0 - 100 mg/dL LAB CHEMISTRY METHOD 09/14/2024 2:33 PM EST [facility] VLDL Cholesterol Shilo 24 mg/dL LAB CHEMISTRY METHOD 09/14/2024 2:33 PM EST [facility] Non HDL Chol. (LDL+VLDL) 107 <145 mg/dL LAB CHEMISTRY METHOD 09/14/2024 2:33 PM EST [facility] Chol/HDL Ratio 2.7 0.0 - 4.4 LAB CHEMISTRY METHOD 09/14/2024 2:33 PM EST [facility] Blood Venous blood specimen / Unknown Venipuncture / Unknown 09/14/2024 10:46 AM EST 09/14/2024 10:46 AM EST Julia LORA LAB BLOOD ORDERABLES Fi nal Result [facility] [address] [place] [address], * CT LUNG SCREENING LOW DOSE (06/09/2024 10:45 AM EDT) Anatomical Region Laterality Modality Computed Tomogra phy 06/09/2024 9:53 AM EDT Narrative 06/09/2024 10:[address] [facility] Diagnostic Imaging Department [address] [place] [address] Patient: ??CUELLO,MOON Y ?/Age/Sex: 1965 - 58 - F Unit#: ??[id number] ? Location/Status: ??SPDICATLS/REG CLI ? Mnemonic/Ordering Site: ??CTLUNGLD/SPCT Ordering Physician: ??MCIA ENGLE MD CT Lung Screening Low Dose - 06/09/24 - 1013 Report Status:Signed INDICATION: Quit 4 years ago with 41 pack-year smoking history FINDINGS: Low-dose CT scan of the chest obtained as a lung cancer screening study. Scanner: Aphria speed 64 slice VCT Dose reduction technique: [...] Procedure Note Jayson Mora MD - 06/18/2024 [facility] Diagnostic Imaging Department [address] [place] [address] Patient: MOON CUELLO /Age/Sex: 1965 - 58 - F Unit#: [id number] Location/Status: SPDICATLS/REG CLI Mnemonic/Ordering Site: [facility] Ordering Physician: MICA ENGLE MD CT Lung Screening Low Dose - 06/09/24 - 1013 Report Status:Signed INDICATION: Quit 4 years ago with 41 pack-year smoking history FINDINGS: Low-dose CT scan of the chest obtained as a lung cancerscreening study. Scanner: Aphria speed 64 slice VCT Dose reduction technique: [...] (07/25/2019) Cervical Cancer Screening: HPV Negative, Abstracted us Historical Provider HEALTH MAINTENANCE Final Result * [facility] SCREENING DIGITAL (04/13/2019 11:28 AM EDT) Anatomical Region Laterality Modality Mammography 04/13/2019 9:19 AM EDT Narrative 04/13/2019 11:[address] [facility] Diagnostic Imaging Department [address] [place] [address] Patient: ??CUELLO,MOON Y ?/Age/Sex: 1965 - 53 - F Unit#: ??[id number] ? Location/Status: ??SPDIMAM/REG CLI ? Mnemonic/Ordering Site: ??DIGSC/SPMAM Ordering Physician: ??SHRUTI ROBLES DO [facility] Screening Digital - 04/13/19 - 0948 INDICATION: SCREENING COMPARISON: 12/17/2016 and additional outside exams of 12/20/2014 and 05/26/2013 TECHNIQUE: CC and MLO views of the breasts were obtained, using full field digital mammography with 3D tomosynthesis views in the MLO projection. Computer aided detection with the SystemsNet 7.2-H was employed. FINDINGS: The breasts contain [...] date for the next mammogram. (G0202 / [id number]) , ??[id number] Dictating Physician: ??ANGELITO SERRANO MD Electronically Signed by: ??ANGELITO SERRANO MD Dic Date/Time: ??04/13/19 112 Sign date/Time: ??04/13/19 1128 Procedure Note Angelito Serrano - 08/06/2022 [facility] Diagnostic Imaging Department [address] [place] [address] Patient: MOON CUELLO /Age/Sex: 1965 - 53 - F Unit#: [id number] Location/Status: [facility]/REG CLI Mnemonic/Ordering Site: [facility] Ordering Physician: SHRUTI ROBLES DO [facility] Screening Digital - 04/13/19 - 0948 INDICATION: SCREENING COMPARISON: 12/17/2016 and additional outside exams of 12/20/2014 and05/26/2013 TECHNIQUE: CC and MLO views of the breasts were obtained, using full field digital mammography with 3D tomosynthesis views in the MLO projection. Computer aided detection with the SystemsNet 7.2-H was employed. FINDINGS: The breasts contain [...] a target date for the next mammogram. G0218 / [id number]) , 14060 Dictating Physician: ANGELITO SERRANO MD Electronically Signed by: ANGELITO SERRANO MD Dic Date/Time: 04/13/19 1122 Sign date/Time: 04/13/19 1128 Shruti Robles DO IMG BI PROCEDURES Final Result * Colonoscopy (12/21/2014) Colonoscopy No Interpretation , Abstracted Anatomical Region Laterality Modality Other Historical Provider HEALTH MAINTENANCE Final Result * Hepatitis C Screening (03/01/2013) Hepatitis C Screening Abstracted Historical Provider HEALTH MAINTENANCE Final Result from Last 3 Months or Most Recently Relevant to Health Maintenance Insurance [facility] Advance Directives Documents on File Type Date Recorded Patient Clinical Informatics Manager Expl anation Health Care Decision (hx) [...] (hx) 12/24/2021 AD GARCÍA DIRECTIVE Care Teams Natural Developer Relationship Specialty Start Date End Date Lgoan Snyder MD [address] [place] [phone] PCP - General Internal Medicine 06/17/21
--- OUTSIDE RECORDS SUMMARY | 2024-12-27 15:56 | XMS_ITS | Encounter Summary ---
Author Organization [employer] [facility] Address [address] [facility] [address] [place] [address] Care Team Providers Care Ferry Terminal Supervisor Name Role Phone Unavailable Primary Care [...]
--- OUTSIDE RECORDS SUMMARY | 2024-12-27 15:56 | XMS_ITS | Clinical Summary ---
Author Organization [employer] Address [address] [facility] 7t [place] [address] Care Team Providers Care Phd Internship Name Role Phone Unavailable Primary Care Provider Unavailabl e Encounters Date Type Department Care Team Description 11/03/2024 Telephone [facility] MEDICINE [address] [place] [address] [phone] Subhash Landis MD New patient appt. from Last 3 Months Social History Tobacco Use Types Packs/Day Years [...] Alcohol/Substance Use Screening 1975 Tobacco Screening 1975 Pap Smear 1984 Cervical Cancer Screening 1993 HPV/Cotest 1993 Mammogram 2003 Hepatitis B Vaccines (2 of 3 - 19+ 3-dose series) 08/31/2013 08/03/2013 Zoster Vaccines (1 of 2) 2013 COVID-19 Vaccine (2 - season) 2024 07/04/2021 Influenza Vaccine (#1) 2024 , 08/13/2020, 10/17/2019, Additional history exists DTaP/Tdap/Td Vaccines (3 - Td or Tdap) 07/03/2026 07/03/2016, 08/03/2013 RSV Patients and Patients Aged 60 years or older (1 - 1-dose 75+ series) 2038 Pneumococcal Vaccine: 50+ Years Completed 03/07/2019, 01/08/2016, 03/28/2014 HIB Vaccines Aged Out No longer eligi [...]
== END 2024-12-27 15:30 | disposition home or self-care (01) ==
LOC: HO.HOS 14:55
PROVIDERS: PCP Internal Medicine
DX: G56.03 Carpal tunnel syndrome, bilateral upper limbs (principal)
CPT/HCPCS: 99024

== ENCOUNTER → 2024-12-27 14:55 | Outpatient (BNVA) | payer OTHER, SELFPAY | PROVIDERS: PCP Internal Medicine | DX: G56.03 Carpal tunnel syndrome, bilateral upper limbs (principal) | CPT/HCPCS: 99212 ==

== ENCOUNTER 2025-01-03 23:17 | Emergency (ER) | payer OTHER, SELFPAY ==
--- NOTE | ~2025-01-03 | CT_ITS ---
CLINICAL HISTORY: LUQ pain, cough, dysuria, diarrhea CT abdomen and pelvis with contrast Comparison: None Findings: Minor atelectasis at the lung bases. The gallbladder and solid organs are within normal limits. No renal stones. Unremarkable small bowel. No wall thickening. Moderate stool. Mesenteric vessels are patent. Appendix not identified. Small calcified uterine fibroids. The ovaries are not clearly identified. No ascites or hernia. Bilateral hip arthroplasties. IMPRESSION: Moderate stool without bowel obstruction. This document has been electronically signed by: Elier Marcial MD on 01/04/2025 01:57:26
[2025-01-03 23:20] VITALS: BP 150/73; PULSE 69; RESP 18; TEMP 36.3; O2SAT 98; BMI 24.3
[2025-01-03 23:40] LABS: Basophils Absolute Auto 0.1 X10*3/uL (0.0-0.2); Basophils Percent Auto 0.7 % (0-2); Eosinophils Absolute Auto 0.1 X10*3/uL (0.0-0.4); Eosinophils Percent Auto 0.8 % (0-4); Hematocrit 38.8 % (37.0-47.0); Hemoglobin 12.9 g/dl (12.0-16.0); Imm Gran Abs Auto 0.02 X10*3/uL (0.00-0.03); Imm Gran Pct Auto 0.2 % (0.0-0.4); Lymphocytes Absolute Auto 2.9 X10*3/uL (1.2-4.9); Lymphocytes Percent Auto 33.8 % (20-40); MANUAL DIFF FLAG NO; Mean Corpuscular HGB Conc 33.2 g/dl (31.0-35.0); Mean Corpuscular Hemoglobin 29.5 pg (27.0-33.0); Mean Corpuscular Volume 88.6 fL (80.0-98.0); Mean Platelet Volume 10.2 fL (9.4-12.3); Monocytes Absolute Auto 0.7 X10*3/uL (0.1-1.2); Monocytes Percent Auto 7.9 % (2-11); Neutrophils Absolute Auto 4.8 x10*3/uL (2.0-8.3); Neutrophils Percent Auto 56.6 % (45-73); Platelet Count 244 X10*3/uL (160-400); Red Blood Count 4.38 X10*6/uL (4.20-5.50); Red Cell Distribution Width 13.7 % (11.0-16.0); White Blood Count 8.6 X10*3/uL (4.8-10.8)
[2025-01-03 23:55] LABS: Alanine Aminotransferase 24 U/L (0-31); Albumin Level 4.2 g/dL (3.5-5.0); Alkaline Phosphatase 64 U/L (39-117); Anion Gap 13 (12-20); Aspartate Amino Transferase 26 U/L (5-31); Bilirubin Total 0.2 mg/dL (0.0-1.0); Blood Urea Nitrogen 17 mg/dL (9-16); Calcium 9.4 mg/dL (8.4-10.2); Carbon Dioxide 26 mmol/L (22-29); Chloride 105 mmol/L (96-108); Creatinine Clr Calc Pharmacy 57.4; Estimated Glomerular Filt Rate > 60; Glucose Random 117 mg/dL (60-115); Potassium 4.2 mmol/L (3.3-5.1); Sodium 140 mmol/L (135-145); Total Protein 7.2 g/dL (6.5-8.0)
[2025-01-04 00:22] LABS: Appearance Urine Clear; Color Urine Yellow; Glucose Urine UA Negative (Negative); Leukocyte Esterase Urine Trace (Negative); Nitrite Urine Negative (Negative); PH 6.5 (5.0-9.0); Specific Gravity - Urine <= 1.005 (1.005-1.025); UMIC TRIGGER UACC YES; Urine Blood Negative (Negative); Urine Ketones Negative (Negative); Urine Protein Negative (Neg-Trace)
[2025-01-04 00:32] LABS: Bacteria Urine None Seen (None Seen); Hyaline Casts Urine 0-2 /LPF (0-2); RBC Urine 0-2 /HPF (0-2); Squamous Epithelial Cell Urine 0-2 /HPF (0-2); WBC Urine 0-5 /HPF (0-5)
--- NOTE | 2025-01-04 00:56 | ECG_ITS ---
Test Reason : ABD PAIN Blood Pressure : */* mmHG Vent. Rate : 75 BPM Atrial Rate : 75 BPM P-R Int : 124 ms QRS Dur : 92 ms QT Int : 412 ms P-R-T Axes : 68 38 40 degrees QTcB Int : 460 ms Normal sinus rhythm Normal ECG When compared with ECG of 15-Mar-2019 12:56, IL interval has increased Referred By: Alejandra Vergara Electronically Signed By: Salbador Carmona
--- NOTE | 2025-01-04 00:57 | ED.ABDPAIN ---
HPI - Abdominal Pain General Chief Complaint: Abdominal Pain Stated Complaint: left side abd pain Time Seen by Provider: 01/04/25 00:38 Source: patient Mode of arrival: ambulatory Limitations: language barrier (Amharic-speaking aerospace stress engineer utilized) History of Present Illness ED Provider: Alejandra Vergara NP HPI narrative: Patient is a 59-year-old female who presents emergency department for evaluation. She has been experiencing intermittent pain to the left upper quadrant of her abdomen over the past week. Nonradiating. She describes it to be a mild bother. However at 17:00 this evening she had sudden onset and increased severity of pain to the left upper quadrant and endorsed associated heartburn. She states that she last ate at proximally 16:00 where she had rice wings and fried bananas. She denies any history of similar pain in the past. When asked, she states that she occasionally experiences intermittent painful urination but has not over the past few days, had a single episode of diarrhea earlier this afternoon without hematochezia or melena. She denies associated nausea or vomiting. No fevers or chills. Denies back pain. Denies chest pain. She admits to a chronic cough which she feels has increased recently but no sputum production. She denies lower abdominal pain Related Data Home Medications ?Medication ?Instructions ?Recorded ?Confirmed albuterol sulfate 90 mcg/actuation inhalation 05/19/20 11/11/24 aerosol inhaler atorvastatin 80 mg tablet 80 mg PO DAILY 05/19/20 11/11/24 ipratropium 0.5 mg-albuterol 3 mg ml inhalation 05/19/20 11/11/24 (2.5 mg base)/3 mL nebulization soln loratadine 10 mg tablet 10 mg PO DAILY PRN allergies 05/19/20 11/11/24 budesonide-formoterol HFA 160 2 puff inhalation BID 05/20/22 11/11/24 mcg-4.5 mcg/actuation aerosol inhaler ibuprofen 600 mg tablet 600 mg PO Q6H PRN 11/11/24 11/11/24 omeprazole 40 mg capsule,delayed 40 mg PO DAILY 11/11/24 11/11/24 release Previous Rx's ?Medication ?Instructions ?Recorded meclizine 25 mg tablet 25 mg PO TID dizziness #20 tabs 09/19/22 ondansetron 4 mg disintegrating 4 mg PO Q8H 4 days #12 tabs 09/19/22 tablet cholecalciferol (vitamin D3) 25 25 mcg PO BID #180 caps 11/24/23 mcg (1,000 unit) capsule gabapentin 300 mg capsule 600 mg (2 x 300 mg) PO BID 30 days 10/05/24 #120 caps hydrocodone 5 mg-acetaminophen 325 1 tab PO Q4-6H PRN pain #5 tabs 12/12/24 mg tablet polyethylene glycol 3350 17 17 g PO DAILY #119 grams 01/04/25 gram/dose oral powder (Miralax) Allergies Allergy/AdvReac Type Severity Reaction Status Date / Time latex Allergy Intermediate Dry skin Verified 01/03/25 23:24 weed pollen Allergy Intermediate Anaphylaxis Verified 01/03/25 23:24 Review of Systems Review of Systems Yes all other systems are reviewed and are negative [facility] Past Medical History Attestation statement: The following information was validated with the patient. Source: old records reviewed Surgical History H/O cervical spine surgery Hx of section H/O bilateral hip replacements History of eye surgery History of appendectomy Family History Family History Father Emphysema lung Mother Hypertension Arthritis Diabetes Social History Social History Household Members: None Alcohol intake: never Patient Tobacco Use Status: Former Tobacco user Substance Use Type: Marijuana Advance Directives: No Do you have a plan to hurt others: No Plan Current occupational status: disabled Physical Exam ED Vital Signs: Vital Signs - 24 hr 01/03/25 23:20 Temperature 97.3 F Pulse Rate 69 Respiratory Rate 18 Blood Pressure 150/73 H Pulse Oximetry 98 Oxygen Delivery Method Room Air BMI result Body Mass Index 24.3 Appearance: Alert.?Oriented to person, place and time. No acute distress.?Normal affect.?? Neck: Normal inspection.? Neck supple.?? CVS: Heart sounds normal. Normal heart rate and rhythm.? Pulses normal.?? Respiratory: No respiratory distress.? Lung sounds clear to auscultation bilaterally?? Abdomen: Soft with left upper quadrant tenderness upon palpation, No rebound tenderness at McBurney's point. Negative psoas sign. Negative Rovsing sign. Negative Lancaster sign. No CVAT. Normoactive bowel sounds. No pulsatile mass.?? Skin: Skin warm and dry.? Normal skin color.? Extremities: No lower extremity edema.? Neuro: Moves all extremities spontaneously. Sensation intact bilaterally. Ambulates with normal steady gait. Course Reevaluation(s) Reevaluation #1: CBC is without leukocytosis anemia or thrombocytopenia. No electrolyte derangement. No JAYNE. LFTs unremarkable. High sensitive troponin below detectable limits, EKG revealing normal sinus rhythm with ventricular rate of 75, QTC 460, no ST elevation. Urinalysis with trace leukocyte esterase otherwise findings not consistent with urinary tract infection, no microscopic hematuria. PT the abdomen pelvis does not show evidence of pneumonia no lung bases there is minor atelectasis, has a moderate stool burden but no evidence of obstruction. Received treatment with GI cocktail while in the emergency department, patient resolution of pain. She is tolerating oral intake. Findings were discussed with patient and her daughter at bedside. Stable for discharge home at this time with strict return precautions outpatient follow-up with primary care doctor Time: 02:26 Medical Decision Making Medical Decision Making MDM Narrative: Patient is a 59-year-old female with past medical history of COPD, hyperlipidemia, depression/anxiety, polyarticular osteoarthritis, osteoporosis, PMR, fibromyalgia, prior appendectomy who presents emergency department for evaluation of left upper quadrant abdominal pain as per HPI, as tenderness on examination but no rigidity or guarding, intermittent dysuria, episode of diarrhea today, increased cough from baseline. She appears uncomfortable during the time my evaluation. Pain did seem to exacerbate 1 hour after eating. She has no signs of systemic toxicity no hypotension she is afebrile without tachycardia. Will obtain serum labs, urinalysis, CT of the abdomen and pelvis for further evaluation, reviewed with patient potential etiology such as gastritis, lower suspicion for acute pancreatitis given no history of alcohol usage nor diabetes, costochondritis secondary to cough, lower lobe pneumonia, reviewed potential for renal colic secondary to nephrolithiasis for pyelonephritis, diverticulitis, ACS. Differential Diagnosis Differential Diagnoses: The differential diagnosis associated with the presentation includes (See narrative above) Admission/Observation Consideration of admission/observation: Escalation of care including admission/observation considered (See narrative above ) Lab Data [facility] Lab Attestation statement: I reviewed the patient's lab results. (See course narrative) 01/03/25 23:36 01/03/25 23:36 Labs: Lab Results 01/03/25 01/03/25 Range/Units 23:36 23:52 WBC 8.6 (4.8-10.8) X10*3/uL RBC 4.38 (4.20-5.50) X10*6/uL Hgb 12.9 (12.0-16.0) g/dl Hct 38.8 (37.0-47.0) % MCV 88.6 (80.0-98.0) fL MCH 29.5 (27.0-33.0) pg MCHC 33.2 (31.0-35.0) g/dl RDW 13.7 (11.0-16.0) % Plt Count 244 (160-400) X10*3/uL MPV 10.2 (9.4-12.3) fL Immature Gran % (Auto) 0.2 (0.0-0.4) % Neut % (Auto) 56.6 (45-73) % Lymph % (Auto) 33.8 (20-40) % Bollinger % (Auto) 7.9 (2-11) % Eos % (Auto) 0.8 (0-4) % Baso % (Auto) 0.7 (0-2) % Lymph # (Auto) 2.9 (1.2-4.9) X10*3/uL Bollinger # (Auto) 0.7 (0.1-1.2) X10*3/uL Eos # (Auto) 0.1 (0.0-0.4) X10*3/uL Baso # (Auto) 0.1 (0.0-0.2) X10*3/uL Abs Immat Gran (auto) 0.02 (0.00-0.03) X10*3/uL Absolute Neuts (auto) 4.8 (2.0-8.3) x10*3/uL Absolute Nucleated RBC 0.000 (0.0-0.012) X10*3/uL Nucleated RBC % (auto) 0.0 (0.0-0.2) /100WBC Sodium 140 (135-145) mmol/L Potassium 4.2 (3.3-5.1) mmol/L Chloride 105 (96-108) mmol/L Carbon Dioxide 26 (22-29) mmol/L Anion Gap 13 (12-20) BUN 17 H (9-16) mg/dL Creatinine 0.88 (0.5-1.4) mg/dL Estim Creat Clear Calc 57.4 Estimated GFR > 60 Random Glucose 117 H (60-115) mg/dL Calcium 9.4 (8.4-10.2) mg/dL Total Bilirubin 0.2 (0.0-1.0) mg/dL AST 26 (5-31) U/L ALT 24 (0-31) U/L Alkaline Phosphatase 64 (39-117) U/L Troponin I High Sens < 2.7 (<3.5-17.0) ng/L Total Protein 7.2 (6.5-8.0) g/dL Albumin 4.2 (3.5-5.0) g/dL Urine Color Yellow Urine Appearance Clear Urine pH 6.5 (5.0-9.0) Ur Specific [place] <= 1.005 (1.005-1.025) Urine Protein Negative (Neg-Trace) mg/dL Urine Glucose (UA) Negative (Negative) mg/dL Urine Ketones Negative (Negative) mg/dL Urine Blood Negative (Negative) Urine Nitrite Negative (Negative) Ur Leukocyte Esterase Trace H (Negative) Urine RBC 0-2 (0-2) /HPF Urine WBC 0-5 (0-5) /HPF Ur Squamous Epith Cells 0-2 (0-2) /HPF Urine Bacteria None Seen (None Seen) Hyaline Casts 0-2 (0-2) /LPF Radiology Impression Discussion of test interpretation with radiology: I have reviewed the radiologist's reading. Radiologist Impression: CT abdomen and pelvis with contrast Comparison: None Findings: Minor atelectasis at the lung bases. The gallbladder and solid organs are within normal limits. No renal stones. Unremarkable small bowel. No wall thickening. Moderate stool. Mesenteric vessels are patent. Appendix not identified. Small calcified uterine fibroids. The ovaries are not clearly identified. No ascites or hernia. Bilateral hip arthroplasties. IMPRESSION: Moderate stool without bowel obstruction. Medications Administered Discontinued Medications Generic Name Dose Route Start Last Admin Trade Name Freq PRN Reason Stop Dose Admin Al Hydroxide/Mg Hydroxide 30 ml 01/04/25 00:55 01/04/25 01:23 Magnesium Hydrox/Alum Hydrox 30 Ml Oral.Susp PO 01/04/25 00:56 30 ml ONCE ONE Administration Famotidine 20 mg 01/04/25 00:55 01/04/25 01:23 Famotidine 20 Mg Tablet PO 01/04/25 00:56 20 mg ONCE ONE Administration Sodium Chloride 1,000 mls @ 999 mls/hr 01/04/25 01:15 01/04/25 01:25 Ns IV 01/04/25 02:15 999 mls/hr .Q1H1M KAYLA Administration Iohexol 85 ml 01/04/25 01:15 01/04/25 01:16 Iohexol 350 Mg/Ml 100 Ml Infus..Btl IV 01/04/25 01:16 85 ml ONCE ONE Administration Lidocaine HCl 15 ml 01/04/25 00:55 01/04/25 01:23 Lidocaine Hcl Viscous 2 % 15 Ml Solution MUCOUS MEM 01/04/25 00:56 15 ml ONCE ONE Administration Discharge Plan Discharge Clinical Impression: Abdominal pain, Constipation Patient Disposition: Home, Self-Care Instructions: Constipation (ED), High Fiber Diet (ED), Abdominal Pain (ED) Additional Instructions: Imaging today reveals that you are notably constipated, which may be resulting pain that you are experiencing. Be sure that you increase your water intake and drink at least 8, 8-12 oz glasses of water daily. Following instructions regarding increased fiber in your diet Prescription for MiraLax has been sent to the pharmacy to use daily allow smoother passage of your stools consistently. Follow-up with your primary care doctor within the next week. Return with any new or worsening symptoms or concerns. Prescriptions: New polyethylene glycol 3350 [Miralax] 17 gram/dose powder 17 g PO DAILY Qty: 119 0RF No Action ondansetron 4 mg tablet,disintegrating 4 mg PO Q8H 4 Days Qty: 12 0RF meclizine 25 mg tablet 25 mg PO TID Qty: 20 0RF hydrocodone-acetaminophen 5-325 mg tablet 1 tab PO Q4-6H PRN (Reason: pain) Qty: 5 0RF Rx Instructions: Partial Fill upon patient request. loratadine 10 mg tablet 10 mg PO DAILY PRN (Reason: allergies) atorvastatin 80 mg tablet 80 mg PO DAILY albuterol sulfate 90 mcg/actuation HFA aerosol inhaler inhalation ipratropium-albuterol 0.5 mg-3 mg(2.5 mg base)/3 mL solution for nebulization inhalation budesonide-formoterol 160-4.5 mcg/actuation HFA aerosol inhaler 2 puff inhalation BID cholecalciferol (vitamin D3) 25 mcg (1,000 unit) capsule 25 mcg PO BID Qty: 180 1RF gabapentin 300 mg capsule 600 mg PO BID 30 Days Qty: 120 6RF ibuprofen 600 mg tablet 600 mg PO Q6H PRN omeprazole 40 mg capsule,delayed release(DR/EC) 40 mg PO DAILY Referrals: Logan Snyder III, MD [Primary Care Provider] - Print Language: Amharic
[2025-01-04] MEDS: iohexoL 350 MG/ML 100 ML INFUS..BTL 85 ML IV (01:16)
[2025-01-04 01:18] LABS: Troponin-I High Sensitivity < 2.7 ng/L (<3.5-17.0)
[2025-01-04] MEDS: Magnesium Hydrox/Alum Hydrox 30 ML ORAL.SUSP PO (01:23)
[2025-01-04] MEDS: Famotidine 20 MG TABLET PO (01:23)
[2025-01-04] MEDS: Lidocaine HCl Viscous 2 % 15 ML SOLUTION MUCOUS MEM (01:23)
[2025-01-04] MEDS: 0.9 % Sodium Chloride 1,000 ML 999 ML IV (01:25)
[2025-01-04 02:40] VITALS: BP 139/78; BP 160/84; PULSE 66; PULSE 78; RESP 17; RESP 20; TEMP 36.4; TEMP 36.9; O2SAT 97; O2SAT 99
== END 2025-01-04 02:40 | disposition home or self-care (01) ==
PROVIDERS: Nurse Practitioner Family; Emergency Provider Emergency Medicine; PCP Internal Medicine
DX: R10.12 Left upper quadrant pain (principal); R10.2 Pelvic and perineal pain; K59.00 Constipation, unspecified; R11.0 Nausea; R12 Heartburn; Z79.899 Other long term (current) drug therapy
CPT/HCPCS: 36415; 74177; 80053; 81001; 84484; 85025; 93005; 96360; 99284; 99285; Q9967

== ENCOUNTER → 2025-01-04 00:56 | Outpatient (BNV) | payer OTHER, SELFPAY | PROVIDERS: Emergency Provider Emergency Medicine; PCP Internal Medicine; Visit Provider Internal Medicine Cardiovascular Disease | DX: R10.9 Unspecified abdominal pain (principal) | CPT/HCPCS: 93010 ==

== ENCOUNTER → 2025-01-04 01:01 | Outpatient (BNV) | payer OTHER, SELFPAY | PROVIDERS: Emergency Provider Emergency Medicine; PCP Internal Medicine; Visit Provider Radiology Diagnostic Radiology | DX: J98.11 Atelectasis (principal) | CPT/HCPCS: 74177 ==

== ENCOUNTER 2025-02-28 10:21 | Outpatient (AMB) | payer OTHER, SELFPAY ==
--- NOTE | 2025-02-28 10:27 | MHC.OFFVIS ---
Vital Signs 02/28/25 10:34 Height 5 ft 2 in Weight 133 lb BMI 24.3 Intake Visit Reasons: OV: Discuss Left CTR- Intake Note: Moon is a 59 year old right hand dominant female who presents today for a follow up visit of Left Carpal Tunnel Syndrome. Hx of Right Carpal Tunnel Release 12/12/24. Patient is looking to discuss Left Carpal Tunnel Release. Sales Representative [employer] Required: Yes Sales Representative [employer] Services: Sales Representative [employer] Present Sales Representative [employer] Name: Petey ID#[id number] Allergies latex Allergy (Intermediate, Verified 02/28/25 10:31) Dry skin weed pollen Allergy (Intermediate, Verified 02/28/25 10:31) Anaphylaxis HPI HPI OV: Discuss Left CTR-: Details: Moon is a 59 year old right hand dominant female who presents today for a follow up visit of Left Carpal Tunnel Syndrome. Hx of Right Carpal Tunnel Release 12/12/24. Patient is looking to discuss Left Carpal Tunnel Release. Patient reports that symptoms are intermittent, daily, and worse at night. PFS Surgical History H/O cervical spine surgery Hx of section H/O bilateral hip replacements History of eye surgery History of appendectomy Family History Father Emphysema lung Mother Hypertension Arthritis Diabetes Social History (Updated 02/28/25 @ 10:34 by HUBER Pepper) Household Members: None Alcohol intake: never Patient Tobacco Use Status: Former Tobacco user Substance Use Type: Marijuana Current occupational status: disabled Current occupation: right hand dominant Review of Systems Const All systems reviewed & are unremarkable except as noted in HPI and below Physical Exam Vital Signs: BMI result Body Mass Index 24.3 Extrem Other: Patient is alert, oriented, and in no acute distress. Neuro: Normal sensation of the tips of all digits of the left hand at this time Vascular: Cap refill brisk Pain: No tenderness to palpation of the left hand No pain with range of motion ROM: Patient is able to make a closed fist and extend all digits of the left hand fully Skin: No lacerations or abrasions. General: No ecchymosis, erythema, or evidence of infection. Psych: Appears grossly normal Affect normal Attitude cooperative Assessment & Plan Assessment & Plan (1) Bilateral carpal tunnel syndrome: Code(s): G56.03 - Carpal tunnel syndrome, bilateral upper limbs Category: Medical Plan 1. Left carpal tunnel syndrome Symptoms intermittent, daily, worse at night I educated the patient about the condition. I discussed both operative and nonoperative treatment options. The patient would like to proceed with surgery. The risks and benefits of operative treatment were discussed with the patient and the patient wishes to proceed with surgery. These risks include, but are not limited to, risk of damage to blood vessels, nerves, tendons, infection, recurrence, incomplete relief of preoperative symptoms, persistent pain, possible need for further surgery, and the risks associated with regional blocks and/or anesthesia. Plan is to take the patient to the operating room at some point in the next few weeks for the following procedures: 1. Left carpal tunnel release under local All of the preoperative paperwork including the consent was discussed today. All of the patient's questions were answered in the clinic today. The patient understands that they will be in contact with our instructor adjunct surgical technician to discuss scheduling their procedure. Patient denies diabetes, blood thinners, asthma, heart issues, lung issues, kidney issues, or current smoking. Coding Level of Care Code Est Pt Level 4 (52952) Diagnoses Bilateral carpal tunnel syndrome G56.03
[2025-02-28 10:34] VITALS: BMI 24.3
--- OUTSIDE RECORDS SUMMARY | 2025-02-28 11:32 | XMS_ITS | Clinical Summary ---
Author Organization [facility] Address [address] [place] [address] Care Team Providers Care Textile Broker Name Role Phone Shruti Morales DO Primary [...] or Tdap) 08/03/2023 08/03/2013 Influenza Vaccine (#1) 2025 , 10/17/2019, 07/13/2018 RSV Adult > 60+ [...] age to complete this topic Care Teams Textile Broker Relationship Specialty Start Date End Date Shruti Morales DO PCP - General Flotation Tank Operator 05/21/20
--- OUTSIDE RECORDS SUMMARY | 2025-02-28 11:32 | XMS_ITS | Clinical Summary ---
Author Organization [address] [place] [address] [place] [phone] Phone Care Team Providers Care Animal Warden Name Role Phone Logan Snyder MD Primary Care Provider [phone] Allergies Active Allergy Reactions Criticality Noted Date Comments Latex 08/26/2023 Other 06/29/2013 Seasonal Allergies Medications gabapentin (NEURONTIN) 300 mg capsule Take 1 capsule (300 mg total) by mouth. 2 Active budesonide-form oteroL (SYMBICORT) 160-4.5 mcg/actuation inhaler [...] NEEDED FOR PAIN. 60 tablet 4 Active loratadine (CLARITIN) 10 mg tablet Take 1 tablet (10 mg total) by mouth 1 (one) time each day. 90 tablet 4 Active omeprazole (PriLOSEC) [address] capsule Take 1 capsule (40 mg total) by mouth 1 (one) time each day. Do not crush or chew. 90 each 1 5 09/14/19 26 Active atorvastatin (LIPITOR) 80 mg tablet TAKE 1 TABLET BY MOUTH AT BEDTIME. 90 tablet 1 5 Active atorvastatin (LIPITOR) 80 mg tablet Take 1 tablet (80 mg total) by mouth 1 (one) time each day. at bedtime. 90 tablet 5 Active amoxicillin-cla vulanate (AUGMENTIN) 875-125 mg per tablet Take 1 tablet by mouth 2 (two) times a day. 20 each 5 Active ibuprofen (ADVIL,MOTRIN) 800 mg tablet Take 1 tablet (800 mg total) by mouth 3 (three) times a day if needed (pain). 90 tablet 5 Active docusate sodium (Colace) 100 mg capsule Take 1 capsule (100 mg total) by mouth 2 (two) times a day. 60 each 5 Active polyethylene glycol (Golytely) 236-22.74-6.74 -5.86 gram solution Take 4L by mouth once for one dose. May substitue any PEG. Starting at 6PM the night before your procedure drink 1 8oz glasses at your own pace until you complete half of the gallon. Finish 2nd half of the gallon 5 hours before your procedure. 4000 mL 5 Active bisacodyL (DULCOLAX) 5 mg EC tablet Take 2 tablets by mouth right before beginning bowel prep. See instructions provided by the office 2 tablet 5 Active Active Problems Problem Noted Date Diagnosed Date Prediabetes 01/13/2025 Abnormal stress test 07/06/2024 Chest pain 07/06/2024 [...] Glaucoma 05/17/2024 Tobacco use 05/17/2024 Polymyalgia rheumatica (CMS/[facility] V24) 05/17/2024 Chronic neck pain with history [...] 12/11/2015 COPD (chronic obstructive pu lmonary disease) ([facility] V24, [facility] V28) 05/30/2014 Multiple pulmonary nodules 01/23/2014 Hyperlipidemia 04/12/2013 Osteoarthritis 04/12/2013 Encounters Date Type Department Care Team Description 02/07/2025 10:47 AM EDT Anesthesia Event [facility] Endoscopy [address] [place] [phone] Austyn Meredith DO 02/07/2025 9:51 AM EDT - 02/07/2025 11:59 PM EDT Hospital Encounter [facility] Endoscopy [address] [place] [phone] Shannon Blount MD Hayes, Brett L, Austyn Garcia DO Colon cancer screening Discharge Disposition: Home or Self Care 01/13/2025 8:32 AM EDT - 01/13/2025 11:59 PM EDT Hospital Encounter [address] [phone] Chronic midline low back pain, unspecified whether sciatica present; Chronic right-sided low back pain, unspecified whether sciatica present Discharge Disposition: Home or Self Care 01/13/2025 8:00 AM EDT Office Visit Adult Medicine [address] [phone] Julia Crawford PA Right hip pain (Primary Dx); Status post bilateral hip replacements; Chronic midline low back pain, unspecified whether sciatica present; Chronic right-sided low back pain, unspecified whether sciatica present; Generalized abdominal pain; Constipation, unspecified constipation type 01/06/2025 Telephone Adult Medicine [address] [phone] Yolette Geller RN from Last 3 Months Immunizations Name Administration Dates Next Due Hepatitis B (Giwoptm-I-Gctiz , Recombivax HB-Adult) 19yo and older 08/03/2013 [...] pertussis (Boostrix; Adacel) 7yo and older 07/03/2016,08/03/2013 Surgical History Surgery Date Site/Laterality Comments TOTAL HIP ARTHROPLASTY Bilateral Medical History Medical History Date Comments COPD (chronic obstructive pulmonary disease) ([facility] V24, [facility] V28) Asthma Hyperlipidemia Diabetes mellitus ([facility] V24, [facility] V28) Hypertension Family History Medical History Relation Name Comments Lung cancer Father Hypertension Mother Relation Name Status Comments Father Mother Social History Tobacco Use Types Packs/Day Years Used Date Smoking Tobacco: Former Cigarettes Smokeless Tobacco: Never Tobacco Cessation:Counseling Given: Not Answered Alcohol Use Standard Drinks/Week Comments Not Currently 0 (1 standard drink = 0.6 oz pur e alcohol) Interpersonal Safety Answer Date Record ed Physical Abuse 02/07/2025 Verbal Abuse 02/07/2025 Comments No Sex and Gender Information Value Date Recorded Sex Assigned at Not on file Legal Sex Female 3:50 AM EST Gender Identity Not on file Sexual Orientation Not on file Obstetrics History Last Filed Vital Signs Vital Sign Reading Time Taken Comments Blood Pressure 131/65 02/07/2025 11:23 AM EDT Pulse 75 02/07/2025 11:23 AM EDT Temperature 36.9 C (98.4 F) 02/07/2025 11:02 AM EDT Respiratory Rate 16 02/07/2025 11:23 AM EDT Oxygen Saturation 99% 02/07/2025 11:23 AM EDT Inhaled Oxygen Concentration - - Weight 61.7 kg (136 lb) 02/07/2025 10:16 AM EDT Height 157.5 cm (5' 2 ) 02/07/2025 10:16 AM EDT Body Mass Index 24.87 02/07/2025 10:16 AM EDT Plan of Treatment Upcoming Encounters Date Type Department Care Team (Late st Contact Info) Description 03/16/2025 3:45 PM EDT Office Visit Adult Medicine [address] [phone] Logan Snyder MD [address] [place] [phone] Health Maintenance Due Date Last Done Comments [...] COVID-19 Vaccine (2 - season) 2024 07/04/2021 Cervical Cancer Screening: HPV 07/25/2024 07/25/2019 Influenza Vaccine (#1) 2025 , 08/13/2020, 10/17/2019, Additional history exists Lung Cancer Screening (Low Dose CT) 06/09/2025 06/09/2024, 05/08/2021 DTaP,Tdap,and Td Vaccines (3 - Td or Tdap) 07/03/2026 07/03/2016, 08/03/2013 Cholesterol Screening (Lipid Panel) 09/14/2029 09/14/2024, 01/27/2024, 01/27/2024 Colorectal Cancer Screening: Colonoscopy 02/07/2035 02/07/2025, 12/21/2014 Hepatitis C Screening Completed 03/01/2013 HIB Vaccines [...] Procedure Name Priority Date/Time Associated Diagnosis Comments COLONOSCOPY Routine 02/07/2025 11:01 AM EDT Colon cancer screening XR LUMBAR SPINE 4+ VIEWS Routine 01/13/2025 8:51 AM EDT Chronic midline low back pain, unspecified whether sciatica present Chronic right-sided low back pain, unspecified whether sciatica present LIPID PANEL WITH REFLEX TO DIRECT LDL Routine 09/14/2024 10:46 AM EST Hyperlipidemia, unspecified hyperlipidemia type CT LUNG SCREENING LOW DOSE Routine 06/09/2024 10:45 AM EDT Personal history of nicotine dependence HM HPV Routine 07/25/2019 ROYA SCREENING DIGITAL Routine 04/13/2019 11:28 AM EDT Encounter for screening mammogram for malignant neoplasm of breast HEPATITIS C SCREENING Routine 03/01/2013 from Last 3 Months or Most Recently Relevant to Health Maintenance Results * COLONOSCOPY Anesthesia - MAC; [facility] ENDOSCOPY (02/07/2025 11:01 AM EDT) Anatomical Region Laterality Modality Endoscopy 02/07/2025 10:5 1 AM EDT Impressions 02/07/2025 11:03 AM EDT - Internal hemorrhoids. - The examination was otherwise normal. - No specimens collected. Recommendation: - Discharge patient to home. - Repeat colonoscopy in 10 years for screening purposes. Narrative 02/07/2025 11:03 AM EDT [facility] GI Patient Name: Moon Cuello Procedure Date: 02/07/2025 10:51 AM Date of : 1965 Age: 59 Gender: Female Note Status: Finalized Attending MD: Shannon Blount MD, Procedure Date No Time: 02/07/2025 Procedure: Colonoscopy Indications: Screening for colorectal malignant neoplasm Providers: Shannon Blount MD Referring MD: Shannon Blount MD Medicines: Monitored Anesthesia Care Complications: No immediate complications. Estimated blood loss: None. Estimated Blood Loss: Estimated blood loss: none. Procedure: Pre-Anesthesia Assessment: - Prior to the procedure, a History and Physical was performed, and patient medications and allergies were reviewed. The patient is competent. The risks and benefits of the procedure and the sedation options and risks were discussed with the patient. All questions were answered and informed consent was obtained. Patient identification and proposed procedure were verified by the physician, the nurse, the director of retail merchandising and the business systems technician in the pre-procedure area in the endoscopy suite. Mental Status Examination: alert and oriented. Airway Examination: normal oropharyngeal airway and neck mobility. Respiratory Examination: clear to auscultation. CV Examination: normal. Prophylactic Antibiotics: The patient does not require prophylactic antibiotics. Prior Anticoagulants: The patient has taken no anticoagulant or antiplatelet agents. ASA Grade Assessment: II - A patient with mild systemic disease. After reviewing the risks and benefits, the patient was deemed in satisfactory condition to undergo the procedure. The anesthesia plan was to use monitored anesthesia care (MAC). Immediately prior to administration of medications, the patient was re-assessed for adequacy to receive sedatives. The heart rate, respiratory rate, oxygen saturations, blood pressure, adequacy of pulmonary ventilation, and response to care were monitored throughout the procedure. The physical status of the patient was re-assessed after the procedure. After I obtained informed consent, the scope was passed under direct vision. Throughout the procedure, the patient's blood pressure, pulse, and oxygen saturations were monitored continuously. The Olympus Colonoscope was introduced through the anus and advanced to the cecum, identified by appendiceal orifice and ileocecal valve. The colonoscopy was performed without difficulty. The patient tolerated the procedure well. The quality of the bowel preparation was good. Findings: The perianal and digital rectal examinations were normal. Internal hemorrhoids were found during retroflexion. The hemorrhoids were Grade I (internal hemorrhoids that do not prolapse). The exam was otherwise without abnormality. Procedure Code(s): --- Professional --- G0121, Colorectal cancer screening; colonoscopy on individual not meeting criteria for high risk Diagnosis Code(s): --- Professional --- Z12.11, Encounter for screening for malignant neoplasm of colon CPT copyright 2020 [employer]. All rights reserved. The codes documented in this report are preliminary and upon curatorial assistant review may be revised to meet current compliance requirements. Shannon Blount MD 02/07/2025 11:03:41 AM This report has been signed electronically.Shannon Blount MD Number of Addenda: 0 Note Initiated On: 02/07/2025 10:51 AM Scope Withdrawal Time: 0 hours 6 minutes 5 seconds Scope In: 10:55:49 AM Scope Out: 11:04:25 AM Endoscopy Department at [facility] - [address] [place] [phone] Procedure Note Shannon Blount MD - 02/07/2025 [facility] GI Patient Name: Moon Cuello Procedure Date: 02/07/2025 10:51 AM Date of : 1965 Age: 59 Gender: Female Note Status: Finalized Attending MD: Shannon Blount MD, Procedure Date No Time: 02/07/2025 Procedure: Colonoscopy Indications: Screening for colorectal malignant neoplasm Providers: Shannon Blount MD Referring MD: Shannon Blount MD Medicines: Monitored Anesthesia Care Complications: No immediate complications. Estimated blood loss:None. Estimated Blood Loss: Estimated blood loss: none. Procedure: Pre-Anesthesia Assessment: - Prior to the procedure, a History and Physicalwas performed, and patient medications and allergieswere reviewed. The patient is competent. The risks and benefits of the procedure and the sedation optionsand risks were discussed with the patient. Allquestions were answered and informed consent was obtained. Patient identification and proposed procedure were verified by the physician, the nurse, theanesthetist and the business systems technician in the pre-procedure area in the endoscopy suite. Mental Status Examination: alertand oriented. Airway Examination: normal oropharyngeal airway and neck mobility. Respiratory Examination: clear to auscultation. CV Examination: normal. Prophylactic Antibiotics: The patient does notrequire prophylactic antibiotics. Prior Anticoagulants: The patient has taken no anticoagulant or antiplatelet agents. ASA Grade Assessment: II - A patient withmild systemic disease. After reviewing the risks and benefits, the patient was deemed in satisfactory condition to undergo the procedure. The anesthesia plan was to use monitored anesthesia care (MAC). Immediately prior to administration of medications, the patient was re-assessed for adequacy to receive sedatives. The heart rate, respiratory rate, oxygen saturations, blood pressure, adequacy of pulmonary ventilation, and response to care were monitored throughout the procedure. The physical status ofthe patient was re-assessed after the procedure. After I obtained informed consent, the scope was passed under direct vision. Throughout theprocedure, the patient's blood pressure, pulse, and oxygen saturations were monitored continuously. TheOlympus Colonoscope was introduced through the anus and advanced to the cecum, identified by appendiceal orifice and ileocecal valve. The colonoscopy was performed without difficulty. The patient tolerated the procedure well. The quality of the bowel preparation was good. Findings: The perianal and digital rectal examinations were normal. Internal hemorrhoids were found duringretroflexion. The hemorrhoids were Grade I (internal hemorrhoids that do not prolapse). The exam was otherwise without abnormality. Procedure Code(s): --- Professional --- G0121, Colorectal cancer screening; colonoscopy on individual not meeting criteria for high risk Diagnosis Code(s): --- Professional --- Z12.11, Encounter for screening for malignantneoplasm of colon CPT copyright 2020 [employer]. All rights reserved. The codes documented in this report are preliminary and upon curatorial assistant reviewmay be revised to meet current compliance requirements. Shannon Blount MD 02/07/2025 11:03:41 AM This report has been signed electronically.Shannon Blount MD Number of Addenda: 0 Note Initiated On: 02/07/2025 10:51 AM Scope Withdrawal Time: 0 hours 6 minutes 5 seconds Scope In: 10:55:49 AM Scope Out: 11:04:25 AM Endoscopy Department at [facility] - [address] [place] [phone] IMPRESSION: - Internal hemorrhoids. - The examination was otherwise normal. - No specimens collected. Recommendation: - Discharge patient to home. - Repeat colonoscopy in 10 years for screening purposes. us Shannon Blount MD GI~PROCEDURE ORDERABLES Fin al Result * XR Lumbar Spine 4+ Views (01/13/2025 8:51 AM EDT) Anatomical Region Laterality Modality Spine, L-spine Radiographic Kate ging 01/13/2025 9:56 AM EDT Impressions 01/13/2025 10:00 AM EDT No acute fracture or dislocation of the lumbar spine. -------- FINAL REPORT -------- Dictated By: Santos Martinez Dictated Date: 01/13/2025 09:56 ET Assigned Physician: Santos Martinez Reviewed and Electronically Signed By: Santos Martinez Signed Date: 01/13/2025 10:00 ET Workstation ID: [id number] Transcribed By: Self Edit Transcribed Date: 01/13/2025 09:56 ET Narrative 01/13/2025 10:00 AM EDT HISTORY: low back pain x 6 months TECHNIQUE: 4 views of the lumbar spine COMPARISON: Lumbar spine radiograph from 09/25/2022 FINDINGS: Vertebral body height and disc spaces are preserved. No acute fracture or dislocation is seen. The spinal alignment is well maintained without evidence of spondylolisthesis. Mild neuroforaminal stenosis at the lower lumbar spine. Moderate stool throughout the colon. Partial visualization of bilateral hip orthopedic hardware. The sacroiliac joints are unremarkable. Procedure Note Santos Martinez MD - 01/13/2025 HISTORY: low back pain x 6 months TECHNIQUE: 4 views of the lumbar spine COMPARISON: Lumbar spine radiograph from 09/25/2022 FINDINGS: Vertebral body height and disc spaces are preserved. No acute fracture ordislocation is seen. The spinal alignment is well maintained withoutevidence of spondylolisthesis. Mild neuroforaminal stenosis at the lowerlumbar spine. Moderate stool throughout the colon. Partial visualizationof bilateral hip orthopedic hardware. The sacroiliac joints areunremarkable. IMPRESSION: No acute fracture or dislocation of the lumbar spine. -------- FINAL REPORT -------- Dictated By: Santos Martinez Dictated Date: 01/13/2025 09:56 ET Assigned Physician: Santos Martinez Reviewed and Electronically Signed By: Santos Martinez Signed Date: 01/13/2025 10:00 ET Workstation ID: [id number] Transcribed By: Self Edit Transcribed Date: 01/13/2025 09:56 ET us Julia LORA IMG XR PROCEDURES Final Result * Lipid panel with reflex to direct LDL (09/14/2024 10:46 AM EST) Cholesterol 170 0 - 200 mg/dL LAB CHEMISTRY METHOD 09/14/2024 2:33 PM EST [facility] Triglycerides 120 0 - 150 mg/dL LAB CHEMISTRY METHOD 09/14/2024 2:33 PM EST [facility] HDL 63 >=40 mg/dL LAB CHEMISTRY METHOD 09/14/2024 2:33 PM EST [facility] LDL Calculated 83 0 - 100 mg/dL LAB CHEMISTRY METHOD 09/14/2024 2:33 PM EST [facility] VLDL Cholesterol Shilo 24 mg/dL LAB CHEMISTRY METHOD 09/14/2024 2:33 PM EST [facility] Non HDL Chol. (LDL+VLDL) 107 <145 mg/dL LAB CHEMISTRY METHOD 09/14/2024 2:33 PM EST [facility] Chol/HDL Ratio 2.7 0.0 - 4.4 LAB CHEMISTRY METHOD 09/14/2024 2:33 PM EST [facility] Blood Venous blood specimen / Unknown Venipuncture / Unknown 09/14/2024 10:46 AM EST 09/14/2024 10:46 AM EST Julia LORA LAB BLOOD ORDERABLES Fi nal Result [facility] [address] [place] [address], [place] [phone] * CT LUNG SCREENING LOW DOSE (06/09/2024 10:45 AM EDT) Anatomical Region Laterality Modality Computed Tomogra phy 06/09/2024 9:53 AM EDT Narrative 06/09/2024 10:45 AM EDT [facility] Diagnostic Imaging Department [address] [place] [address] Patient: MOON CUELLO /Age/Sex: 1965 - 58 - F Unit#: [id number] Location/Status: SPDICATLS/REG CLI Mnemonic/Ordering Site: [facility] Ordering Physician: MICA ENGLE MD CT Lung Screening Low Dose - 06/09/24 - 1013 Report Status:Signed INDICATION: Quit 4 years ago with 41 pack-year smoking history FINDINGS: Low-dose CT scan of the chest obtained as a lung cancer screening study. Scanner: Ozsale speed 64 slice VCT Dose reduction technique: [...] Date/Time: 06/09/24 1036 Sign date/Time: 06/09/24 1045 Procedure Note Jayson Mora MD - 06/18/2024 [facility] Diagnostic Imaging Department [address] [place] [id number] Patient: MOON UCELLO Tr /Age/Sex: 1965 - 58 - F Unit#: [id number] Location/Status: SPDICATLS/REG CLI Mnemonic/Ordering Site: [facility] Ordering Physician: MICA ENGLE MD CT Lung Screening Low Dose - 06/09/24 - 1013 Report Status:Signed INDICATION: Quit 4 years ago with 41 pack-year smoking history FINDINGS: Low-dose CT scan of the chest obtained as a lung cancerscreening study. Scanner: Ozsale speed 64 slice VCT Dose reduction technique: [...] Historical Provider HEALTH MAINTENANCE Final Result * [facility] SCREENING DIGITAL (04/13/2019 11:28 AM EDT) Anatomical Region Laterality Modality Mammography 04/13/2019 9:19 AM EDT Narrative 04/13/2019 11:28 AM EDT [facility] Diagnostic Imaging Department [address] [place] [address] Patient: MOON CUELLO /Age/Sex: 1965 - 53 - F Unit#: [id number] Location/Status: [facility] CLI Mnemonic[facility] Ordering Physician: SRHUTI FRANK DO Roya Screening Digital - 04/13/19 - 0948 INDICATION: SCREENING COMPARISON: 12/17/2016 and additional outside exams of 12/20/2014 and 05/26/2013 TECHNIQUE: CC and MLO views of the breasts were obtained, using full field digital mammography with 3D tomosynthesis views in the MLO projection. Computer aided detection with the Saavn 7.2-H was employed. FINDINGS: The breasts contain heterogeneously dense tissues, which may lower sensitivity of mammography in this patient. Bilateral symmetric nipple inversion which is not present on multiple prior mammograms. No suspicious masses, suspicious microcalcifications, or areas of architectural distortion are identified. Rare benign-appearing breast calcifications are present bilaterally. There are no secondary signs of breast malignancy. Compared to the prior exam, no adverse interval change. IMPRESSION: No specific mammographic evidence of breast malignancy. Lack of an imaging correlate should not deter or delay biopsy of a clinically significant palpable finding. BI-RADS - Category 2 - Benign finding 3342F, 7025F Annual screening mammography is recommended. Patient entered into a reminder system with a target date for the next mammogram. G0202 [id number]) , [id number] Dictating Physician: ANGELITO HAWTHORNE MD Electronically Signed by: ANGELITO HAWTHORNE MD Dic Date/Time: 04/13/19 1122 Sign date/Time: 04/13/19 1128 Procedure Note Angelito Hawthorne - 08/06/2022 [facility] Diagnostic Imaging Department [address] [place] [address] Patient: MOON CUELLO Y /Age/Sex: 1965 - 53 - F Unit#: [id number] [facility] Ordering Physician: SHRUTI FRANK DO Roya Screening Digital - 04/13/19 - 0948 INDICATION: SCREENING COMPARISON: 12/17/2016 and additional outside exams of 12/20/2014 and05/26/2013 TECHNIQUE: CC and MLO views of the breasts were obtained, using full field digital mammography with 3D tomosynthesis views in the MLO projection. Computer aided detection with the Saavn 7.2-H was employed. FINDINGS: The breasts contain [...] a target date for the next mammogram. G0152 / [id number]) , [id number] Dictating Physician: ANGELITO HAWTHORNE MD Electronically Signed by: ANGELITO HAWTHORNE MD Dic Date/Time: 04/13/19 1122 Sign date/Time: 04/13/19 1128 Shruti Frank DO IM BI PROCEDURES Final Result * Hepatitis C Screening (03/01/2013) Hepatitis C Screening Abstracted Historical Provider HEALTH MAINTENANCE Final Result from Last 3 Months or Most Recently Relevant to Health Maintenance Insurance [employer] [place] [id number] Advance Directives Documents on File Type Date Recorded Patient Lab Nurse Expl anation Health Care Decision (hx) 12/24/2021 [...] DIRECTIVE Health Care Decision (hx) 12/24/2021 AD GARÍCA DIRECTIVE Care Teams Animal Warden Relationship Specialty Start Date End Date Logan Snyder MD [address] [place] [phone] PCP - General Internal Medicine 06/17/21
--- OUTSIDE RECORDS SUMMARY | 2025-02-28 11:32 | XMS_ITS | Encounter Summary ---
Author Organization [address] [employer] Organization [facility] Address [address] [place] [address] Care Team Providers Care Mail Caller Name Role Phone Unavailable Primary Care Provider [...]
== END 2025-02-28 11:06 | disposition home or self-care (01) ==
LOC: HO.HOS 10:22
PROVIDERS: PCP Internal Medicine
DX: G56.03 Carpal tunnel syndrome, bilateral upper limbs (principal)
CPT/HCPCS: 99214

== ENCOUNTER → 2025-02-28 10:21 | Outpatient (BNVA) | payer OTHER, SELFPAY | PROVIDERS: PCP Internal Medicine | DX: G56.03 Carpal tunnel syndrome, bilateral upper limbs (principal) | CPT/HCPCS: 99212 ==

== ENCOUNTER 2025-03-03 09:53 | Outpatient (AMB) | payer OTHER, SELFPAY ==
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
--- OUTSIDE RECORDS SUMMARY | 2025-03-03 10:09 | XMS_ITS | Clinical Summary ---
Author Organization [address] [place] [address] [place] [phone] Phone Care Team Providers Care Gallery Director Name Role Phone Logan Snyder MD Primary Care Provider [phone] Allergies Active Allergy Reactions Criticality Noted Date [...] Glaucoma 05/17/2024 Tobacco use 05/17/2024 Polymyalgia rheumatica (CMS/[facility] V24) 05/17/2024 Chronic neck pain with [...] 12/11/2015 COPD (chronic obstructive pu lmonary disease) ([facility] V24, [facility] V28) 05/30/2014 Multiple pulmonary nodules 01/23/2014 Hyperlipidemia 04/12/2013 Osteoarthritis 04/12/2013 Encounters Date Type Department Care Team Description 02/07/2025 10:47 AM EDT Anesthesia Event [facility] Endoscopy [address] [place] [phone] Austyn Meredith DO 02/07/2025 9:51 AM EDT - 02/07/2025 11:59 PM EDT Hospital Encounter [facility] Endoscopy [address] [place] [phone] Shannon Blount MD Hayes, Brett L, Austyn Garcia DO Colon cancer screening Discharge Disposition: Home or Self Care 01/13/2025 8:32 AM EDT - 01/13/2025 11:59 PM EDT Hospital Encounter [address] [phone] Chronic midline low back pain, unspecified whether sciatica present; Chronic right-sided low back pain, unspecified whether sciatica present Discharge Disposition: Home or Self Care 01/13/2025 8:00 AM EDT Office Visit Adult Medicine [address] [phone] Julia Crawford PA Right hip pain (Primary Dx); Status post bilateral hip replacements; Chronic midline low back pain, unspecified whether sciatica present; Chronic right-sided low back pain, unspecified whether sciatica present; Generalized abdominal pain; Constipation, unspecified constipation type 01/06/2025 Telephone Adult Medicine [address] [phone] Yolette Geller RN from Last 3 Months Immunizations Name Administration Dates Next Due Hepatitis B (Bgxzjfr-Y-Rtenl , Recombivax HB-Adult) 19yo and older 08/03/2013 [...] Date Comments COPD (chronic obstructive pulmonary disease) ([facility] V24, [facility] V28) Asthma Hyperlipidemia Diabetes mellitus ([facility] V24, [facility] V28) Hypertension Family History Medical History [...] 3:45 PM EDT Office Visit Adult Medicine [address] [phone] Logan Snyder MD [address] [place] [phone] Health Maintenance Due Date Last Done Comments [...] Maintenance Results * COLONOSCOPY Anesthesia - MAC; [facility] ENDOSCOPY (02/07/2025 11:01 AM EDT) Anatomical Region Laterality Modality Endoscopy 02/07/2025 10:5 1 AM EDT Impressions 02/07/2025 11:03 AM EDT - Internal hemorrhoids. - The examination was otherwise normal. - No specimens collected. Recommendation: - Discharge patient to home. - Repeat colonoscopy in 10 years for screening purposes. Narrative 02/07/2025 11:03 AM EDT [facility] GI Patient Name: Moon Cuello Procedure Date: [...] verified by the physician, the nurse, the manager of production and the gyroscope technician in the pre-procedure area in the [...] malignant neoplasm of colon CPT copyright 2020 [employer]. All rights reserved. The codes documented in this report are preliminary and upon inspector brake lining review may be revised to meet current compliance requirements. Shannon Blount MD 02/07/2025 11:03:41 AM This report has been signed electronically.Shannon Blount MD Number of Addenda: 0 Note Initiated On: 02/07/2025 10:51 AM Scope Withdrawal Time: 0 hours 6 minutes 5 seconds Scope In: 10:55:49 AM Scope Out: 11:04:25 AM Endoscopy Department at [facility] - [address] [place] [phone] Procedure Note Shannon Blount MD - 02/07/2025 [facility] GI Patient Name: Moon Cuello Procedure Date: [...] the physician, the nurse, theanesthetist and the gyroscope technician in the pre-procedure area in the [...] for malignantneoplasm of colon CPT copyright 2020 [employer]. All rights reserved. The codes documented in this report are preliminary and upon inspector brake lining reviewmay be revised to meet current compliance requirements. Shannon Blount MD 02/07/2025 11:03:41 AM This report has been signed electronically.Shannon Blount MD Number of Addenda: 0 Note Initiated On: 02/07/2025 10:51 AM Scope Withdrawal Time: 0 hours 6 minutes 5 seconds Scope In: 10:55:49 AM Scope Out: 11:04:25 AM Endoscopy Department at [facility] - [address] [place] [phone] IMPRESSION: - Internal hemorrhoids. - The examination [...] Signed Date: 01/13/2025 10:00 ET Workstation ID: [id number] Transcribed By: Self Edit Transcribed Date: 01/13/2025 [...] Signed Date: 01/13/2025 10:00 ET Workstation ID: [id number] Transcribed By: Self Edit Transcribed Date: 01/13/2025 09:56 ET us Julia LORA IMG XR PROCEDURES Final Result * Lipid panel with reflex to direct LDL (09/14/2024 10:46 AM EST) Cholesterol 170 0 - 200 mg/dL LAB CHEMISTRY METHOD 09/14/2024 2:33 PM EST [facility] Triglycerides 120 0 - 150 mg/dL LAB CHEMISTRY METHOD 09/14/2024 2:33 PM EST [facility] HDL 63 >=40 mg/dL LAB CHEMISTRY METHOD 09/14/2024 2:33 PM EST [facility] LDL Calculated 83 0 - 100 mg/dL LAB CHEMISTRY METHOD 09/14/2024 2:33 PM EST [facility] VLDL Cholesterol Shilo 24 mg/dL LAB CHEMISTRY METHOD 09/14/2024 2:33 PM EST [facility] Non HDL Chol. (LDL+VLDL) 107 <145 mg/dL LAB CHEMISTRY METHOD 09/14/2024 2:33 PM EST [facility] Chol/HDL Ratio 2.7 0.0 - 4.4 LAB CHEMISTRY METHOD 09/14/2024 2:33 PM EST [facility] Blood Venous blood specimen / Unknown Venipuncture / Unknown 09/14/2024 10:46 AM EST 09/14/2024 10:46 AM EST Julia LORA LAB BLOOD ORDERABLES Fi nal Result [facility] [address] [place] [address], [place] [phone] * CT LUNG SCREENING LOW DOSE (06/09/2024 10:45 AM EDT) Anatomical Region Laterality Modality Computed Tomogra phy 06/09/2024 9:53 AM EDT Narrative 06/09/2024 10:45 AM EDT [facility] Diagnostic Imaging Department [address] [place] [address] Patient: MOON CUELLO /Age/Sex: 1965 - 58 - F Unit#: [id number] Location/Status: SPDICATLS/REG CLI Mnemonic/Ordering Site: [facility] Ordering Physician: MICA ENGLE MD CT Lung Screening Low Dose - 06/09/24 - 1013 Report Status:Signed INDICATION: Quit 4 years ago with 41 pack-year smoking history FINDINGS: Low-dose CT scan of the chest obtained as a lung cancer screening study. Scanner: [employer] speed 64 slice VCT Dose reduction technique: [...] Note Jayson Mora MD - 06/18/2024 [facility] Diagnostic Imaging Department [address] [place] [phone] Patient: MOON CUELLO Tr /Age/Sex: 1965 - 58 - F Unit#: [id number] Location/Status: SPDICATLS/REG CLI Mnemonic/Ordering Site: [facility] Ordering Physician: MICA ENGLE MD CT Lung Screening Low Dose - 06/09/24 - 1013 Report Status:Signed INDICATION: Quit 4 years ago with 41 pack-year smoking history FINDINGS: Low-dose CT scan of the chest obtained as a lung cancerscreening study. Scanner: [employer] speed 64 slice VCT Dose reduction technique: [...] Historical Provider HEALTH MAINTENANCE Final Result * [facility] SCREENING DIGITAL (04/13/2019 11:28 AM EDT) Anatomical Region Laterality Modality Mammography 04/13/2019 9:19 AM EDT Narrative 04/13/2019 11:28 AM EDT [facility] Diagnostic Imaging Department [address] [place] [address] Patient: MOON CUELLO /Age/Sex: 1965 - 53 - F Unit#: [id number] Location/Status: [facility] CLI Mnemonic/Ordering [facility] Ordering Physician: SHRUTI FRANK DO Roya Screening Digital - 04/13/19 - 0948 INDICATION: SCREENING COMPARISON: 12/17/2016 and additional outside exams of 12/20/2014 and 05/26/2013 TECHNIQUE: CC and MLO views of the breasts were obtained, using full field digital mammography with 3D tomosynthesis views in the MLO projection. Computer aided detection with the Digitick 7.2-H was employed. FINDINGS: The breasts contain [...] target date for the next mammogram. G0202 [id number]) , [id number] Dictating Physician: ANGELITO HAWTHORNE MD Electronically Signed by: ANGELITO HAWTHORNE MD Dic Date/Time: 04/13/19 1122 Sign date/Time: 04/13/19 1128 Procedure Note Angelito Hawthorne - 08/06/2022 [facility] Diagnostic Imaging Department [address] [place] [address] Patient: MOON CUELLO Y /Age/Sex: 1965 - 53 - F Unit#: [id number] Location/Status: [facility] Mnemonic/Ordering Site: [facility] Ordering Physician: SHRUTI FRANK DO Roya Screening Digital - 04/13/19 - 0948 INDICATION: SCREENING COMPARISON: 12/17/2016 and additional outside exams of 12/20/2014 and05/26/2013 TECHNIQUE: CC and MLO views of the breasts were obtained, using full field digital mammography with 3D tomosynthesis views in the MLO projection. Computer aided detection with the Digitick 7.2-H was employed. FINDINGS: The breasts contain [...] a target date for the next mammogram. G0650 / [id number]) , 17959 Dictating Physician: ANGELITO HAWTHORNE MD Electronically Signed by: ANGELITO HAWTHORNE MD Dic Date/Time: 04/13/19 1122 Sign date/Time: 04/13/19 1128 Shruti Frank DO IM BI PROCEDURES Final Result * Hepatitis C Screening (03/01/2013) Hepatitis C Screening Abstracted Historical Provider HEALTH MAINTENANCE Final Result from Last 3 Months or Most Recently Relevant to Health Maintenance Insurance [employer] Advance Directives Documents on File Type Date Recorded Patient Quick Technician Expl anation Health Care Decision (hx) 12/24/2021 [...] (hx) 12/24/2021 AD GARCÍA DIRECTIVE Care Teams Gallery Director Relationship Specialty Start Date End Date Logan Snyder MD [address] [place] [phone] PCP - General Internal Medicine 06/17/21
--- OUTSIDE RECORDS SUMMARY | 2025-03-03 10:09 | XMS_ITS | Clinical Summary ---
Author Organization [facility] Address [address] [place] [address] Care Team Providers Care Senior Product Development Engineer Name Role Phone Shruti Morales DO Primary [...] age to complete this topic Care Teams Senior Product Development Engineer Relationship Specialty Start Date End Date Shruti Morales DO PCP - General Livestock Yard Attendant 05/21/20
--- OUTSIDE RECORDS SUMMARY | 2025-03-03 10:09 | XMS_ITS | Encounter Summary ---
Author Organization [facility] Address [address] [place] [address] Care Team Providers Care Spa Coordinator Name Role Phone Unavailable Primary Care Provider [...]
[2025-03-03 10:12] VITALS: BMI 24.7
== END 2025-03-03 10:32 | disposition home or self-care (01) ==
LOC: HO.HOS 09:54
PROVIDERS: PCP Internal Medicine; Visit Provider Physical Medicine & Rehabilitation
DX: M51.16 Intervertebral disc disorders with radiculopathy, lumbar region (principal); M54.41 Lumbago with sciatica, right side; G89.29 Other chronic pain
CPT/HCPCS: 99214

== ENCOUNTER → 2025-03-03 09:53 | Outpatient (BNVA) | payer OTHER, SELFPAY | PROVIDERS: PCP Internal Medicine; Visit Provider Physical Medicine & Rehabilitation | DX: M51.16 Intervertebral disc disorders with radiculopathy, lumbar region (principal); G89.29 Other chronic pain | CPT/HCPCS: 99212 ==

== ENCOUNTER 2025-03-20 08:06 | Day surgery (SDC) | payer OTHER, SELFPAY ==
[2025-03-20 09:24] VITALS: BMI 25.6
[2025-03-20 09:40] VITALS: BP 133/63; PULSE 58; RESP 16; TEMP 36.6; O2SAT 99
--- NOTE | 2025-03-20 10:19 | MHC.SHP ---
Pre-Procedural Eval Section A - 24 Hr Update-Section A only Date of Service: 03/20/25 The patient is an INPATIENT: No Changes since office visit: No Cold of Flu in the past 2 weeks, No New Medical Problems, No Changes in Medication and No Patient answered all questions The patient has been examined within 24 hours of the surgical procedure. The History & Physical has been completed within 30 days and I have reviewed it.: Yes Section B - Complete if H&P > 30 days Chief Complaint: Carpal tunnel syndrome, left upper limb Allergies: Allergies Allergy/AdvReac Type Severity Reaction Status Date / Time latex Allergy Intermediate Hives Verified 03/20/25 09:42 weed pollen Allergy Intermediate Anaphylaxis Verified 03/20/25 09:41 Plan Diagnosis/Plan: Unchanged I have reviewed the history and physical and performed a pertinent physical examination on my patient. No changes have occurred unless specified. Time Spent With Patient Time: Total time managing care of this patient today ____ minutes.
--- NOTE | 2025-03-20 10:20 | P.OP_ITS ---
Operative Note Operative Note Date of Service: 03/20/25 Narrative: Preop diagnosis: 1. Left Carpal tunnel syndrome Postop diagnosis: same Procedure: 1. Left Carpal tunnel release Surgeon: Hawa Nogueira MD Driver License Reviewing Officer: None Anesthesia: local block using 1% lidocaine with epinephrine Findings: Thickened transverse carpal ligament. EBL: Less than 5 mL Specimens: None Complications: None Disposition: Brought to recovery room in stable condition Plan: Follow-up for 10-14 days for wound check and suture removal Indications: The patient is 59 years old, with left carpal tunnel syndrome that has been unresponsive to nonoperative management. The risks and benefits of operative treatment including but not limited to risk of damage to blood vessels, nerves, tendons, infection, persistent pain, persistent symptoms, or possible need for additional surgery were discussed with the patient and the patient wishes to proceed with surgery. Procedure: Once consent was obtained a local block was performed using a combination of 1% lidocaine with epinephrine. The patient was then brought back to the operating suite and placed on the operative table in supine position. The left upper extremity was prepped and draped in a standard surgical fashion. Once assured that we had a good block, a 2.0 cm longitudinal incision was made centered over the carpal tunnel. The incision was made through the skin to the subcutaneous tissues using a #15 blade. Dissection was made down to the level of the transverse carpal ligament with care being taken to protect the palmar cutaneous nerve. Once the transverse carpal ligament was clearly visualized, a longitudinal incision was made in the transverse carpal ligament 1st using a #15 blade, then using tenotomy scissors under direct visualization. Care was taken to look for and protect the motor branch of the median nerve when seen in this area. Once satisfied with our carpal tunnel release the wound was copiously irrigated with normal saline and hemostasis was obtained with a brief period of local pressure. The skin edges were reapproximated with some 5.0 nylon suture material and a sterile dressing was applied. The patient appears to have tolerated the procedure well and with no complicatio ns. All digits were well vascularized at the conclusion of the case.
[2025-03-20 11:00] VITALS: BP 150/71; PULSE 55; RESP 14; O2SAT 95
== END 2025-03-20 11:13 | disposition home or self-care (01) ==
PROVIDERS: PCP Internal Medicine; Visit Provider Orthopaedic Surgery
PROC: (CPT 64721; principal; 2025-03-20 10:10)
DX: G56.02 Carpal tunnel syndrome, left upper limb (principal); Z91.040 Latex allergy status; Z91.09 Other allergy status, other than to drugs and biological substances; Z98.890 Other specified postprocedural states; Z87.891 Personal history of nicotine dependence
CPT/HCPCS: 64721; J0165; J2003

== ENCOUNTER → 2025-03-20 08:06 | Outpatient (BNV) | payer OTHER, SELFPAY | PROVIDERS: PCP Internal Medicine; Visit Provider Orthopaedic Surgery | DX: G56.02 Carpal tunnel syndrome, left upper limb (principal) | CPT/HCPCS: 64721 ==

== ENCOUNTER 2025-04-05 11:11 | Outpatient (AMB) | payer OTHER, SELFPAY ==
[2025-04-05 11:16] VITALS: BMI 25.6
--- NOTE | 2025-04-05 11:16 | MHC.OFFVIS ---
Vital Signs 04/05/25 11:16 Height 5 ft 2 in Weight 140 lb BMI 25.6 Intake Visit Reasons: PO LT CTR 03/20/25 AR Intake Note: Moon is a 59 year old right hand dominant female who presents today post-operatively status post left carpal tunnel release DOS: 03/20/[address] Nogueira. Patient denies numbness, tingling, finger locking. She is not taking any pain medications at this time. Sutures were removed and steri strips applied. Computer Patternmaker Required: Yes Computer Patternmaker Language: Line Prep Cook Services: Computer Patternmaker Offered & Declined Allergies latex Allergy (Intermediate, Verified 04/05/25 11:16) Hives weed pollen Allergy (Intermediate, Verified 04/05/25 11:16) Anaphylaxis HPI HPI PO LT CTR 03/20/25 AR: Details: Moon is a 59 year old right hand dominant female who presents today post-operatively status post left carpal tunnel release DOS: 03/20/[address] Nogueira. Patient denies numbness, tingling, finger locking. She is not taking any pain medications at this time. Sutures were removed and steri strips applied. [facility] Surgical History H/O cervical spine surgery Hx of section H/O bilateral hip replacements History of eye surgery History of appendectomy Family History Father Emphysema lung Mother Hypertension Arthritis Diabetes Social History Household Members: None Alcohol intake: never Patient Tobacco Use Status: Former Tobacco user Substance Use Type: Marijuana Current occupational status: disabled Current occupation: right hand dominant Review of Systems Const All systems reviewed & are unremarkable except as noted in HPI and below Physical Exam Vital Signs: BMI result Body Mass Index 25.6 Extrem Other: Patient is alert, oriented, and in no acute distress. Neuro: Normal sensation of the tips of all digits of the left hand at this time Vascular: Cap refill brisk Pain: No tenderness to palpation of the left hand No pain with range of motion ROM: Patient is able to make a closed fist and extend all digits of the left hand fully Skin: Well approximated and well healing incision of the volar left wrist No lacerations or abrasions. General: No ecchymosis, erythema, or evidence of infection. Psych: Appears grossly normal Affect normal Attitude cooperative Assessment & Plan Assessment & Plan (1) Bilateral carpal tunnel syndrome: Code(s): G56.03 - Carpal tunnel syndrome, bilateral upper limbs Category: Medical Plan 1. Status left right carpal tunnel release DOS 03/20/2025 Patient appears to be recovering well postoperatively Patient is educated about the typical recovery course At this time, patient is informed that no acute follow-up as needed for this surgery, as she is recovering very well Patient is amenable to this plan Coding Level of Care Code Global (92891) Diagnoses Bilateral carpal tunnel syndrome G56.03
--- OUTSIDE RECORDS SUMMARY | 2025-04-05 12:35 | XMS_ITS ---
Author Name [facility] Organization Unknown Care Team Organization Name Specialty Phone Email Start Date End Da te [facility] JUAN BOLIVAR Primary Care 06/24/2022 4
--- OUTSIDE RECORDS SUMMARY | 2025-04-05 12:35 | XMS_ITS | Encounter Summary ---
Author Organization [facility] Address [address] [place] [address] Care Team Providers Care Direct Marketing Executive Name Role Phone Unavailable Primary Care Provider [...]
--- OUTSIDE RECORDS SUMMARY | 2025-04-05 12:36 | XMS_ITS | Clinical Summary ---
Author Organization [address] [place] [address] [place] [phone] Phone Care Team Providers Care Highway Maintenance Technician Name Role Phone Logan Snyder MD Primary Care Provider [phone] Allergies Active Allergy Reactions Criticality Noted Date Comments Latex 08/26/2023 Other 06/29/2013 Seasonal Allergies Medications gabapentin (NEURONTIN) 300 mg capsule Take 1 capsule (300 mg total) by mouth. 05/20/20 22 Active budesonide-for moteroL (SYMBICORT) 160-4.5 mcg/actuation inhaler Inhale 2 puffs by mouth. 02/10/20 23 Active albuterol HFA (PROAIR HFA ; PROVENTIL HFA ; VENTOLIN HFA) 90 mcg/actuation inhaler Inhale 2 puffs by mouth. 09/28/19 24 Active prednisoLONE acetate (PRED FORTE) 1 % ophthalmic suspension 02/24/20 23 Active acetaminophen (TYLENOL 8 HOUR) 650 mg 8 hr tablet TAKE 1 TABLET BY MOUTH EVERY 8 HOURS NEEDED FOR PAIN. 60 tablet 07/25/20 24 Active loratadine (CLARITIN) 10 mg tablet Take 1 tablet (10 mg total) by mouth 1 (one) time each day. 90 tablet 07/29/20 24 Active omeprazole (PriLOSEC) [address] capsule Take 1 capsule (40 mg total) by mouth 1 (one) time each day. Do not crush or chew. 90 each 1 09/14/19 25 026 Active atorvastatin (LIPITOR) 80 mg tablet TAKE 1 TABLET BY MOUTH AT BEDTIME. 90 tablet 1 11/08/19 25 Active atorvastatin (LIPITOR) 80 mg tablet Take 1 tablet (80 mg total) by mouth 1 (one) time each day. at bedtime. 90 tablet 11/09/19 25 Active amoxicillin-cl avulanate (AUGMENTIN) 875-125 mg per tablet Take 1 tablet by mouth 2 (two) times a day. 20 each 11/03/19 25 Active ibuprofen (ADVIL,MOTRIN) 800 mg tablet Take 1 tablet (800 mg total) by mouth 3 (three) times a day if needed (pain). 90 tablet 01/14/20 25 Active polyethylene glycol (Golytely) 236-22.74-6.74 -5.86 gram solution Take 4L by mouth once for one dose. May substitue any PEG. Starting at 6PM the night before your procedure drink 1 8oz glasses at your own pace until you complete half of the gallon. Finish 2nd half of the gallon 5 hours before your procedure. 4000 mL 01/25/20 25 Active bisacodyL (DULCOLAX) 5 mg EC tablet Take 2 tablets by mouth right before beginning bowel prep. See instructions provided by the office 2 tablet 01/25/20 25 Active senna-docusate (Senokot-S) 8.6-50 mg per tablet Take 1 tablet by mouth 1 (one) time each day. 30 each 03/16/20 25 026 Active docusate sodium (Colace) 100 mg capsule Take 1 capsule (100 mg total) by mouth 2 (two) times a day. 60 each 01/14/20 25 025 Discontinued Active Problems Problem Noted Date [...] Glaucoma 05/17/2024 Tobacco use 05/17/2024 Polymyalgia rheumatica ([facility] V24) 05/17/2024 Chronic neck pain with history [...] 12/11/2015 COPD (chronic obstructive pu lmonary disease) ([facility] V24, [facility] V28) 05/30/2014 Multiple pulmonary nodules 01/23/2014 Hyperlipidemia 04/12/2013 Osteoarthritis 04/12/2013 Encounters Date Type Department Care Team Description 03/16/2025 3:45 PM EDT Office Visit Adult Medicine [address] [phone] Logan Snyder MD Pure hypercholesterolemia (Primary Dx); Encounter for long-term (current) use of medications; Prediabetes; Epigastric pain; Other chronic pain; Gastroesophageal reflux disease, unspecified whether esophagitis present; Fibromyalgia; Status post total hip replacement, right 02/07/2025 10:47 AM EDT Anesthesia Event [facility] [address] [place] [phone] Austyn Meredith DO 02/07/2025 9:51 AM EDT - 02/07/2025 11:59 PM EDT Hospital Encounter [facility] [address] [place] [phone] Shannon Bluont MD Hayes, Brett L, Austyn Garcia DO Colon cancer screening Discharge Disposition: Home or Self Care 01/13/2025 8:32 AM EDT - 01/13/2025 11:59 PM EDT Hospital Encounter [address] [phone] Chronic midline low back pain, unspecified whether sciatica present; Chronic right-sided low back pain, unspecified whether sciatica present Discharge Disposition: Home or Self Care 01/13/2025 8:00 AM EDT Office Visit Adult Medicine [address] [phone] Julia Crawford PA Right hip pain (Primary Dx); Status post bilateral hip replacements; Chronic midline low back pain, unspecified whether sciatica present; Chronic right-sided low back pain, unspecified whether sciatica present; Generalized abdominal pain; Constipation, unspecified constipation type 01/06/2025 Telephone Adult Medicine [address] [phone] Yolette Geller RN from Last 3 Months Immunizations Name Administration Dates Next Due Hepatitis B ([id number]-O-Uqwix , Recombivax HB-Adult) 19yo and older 08/03/2013 [...] Comments COPD (chronic obstructive pulmonary disease) ( [facility] V24, [facility] V28) Asthma Hyperlipidemia Diabetes mellitus ([facility] V24, [facility] V28) Hypertension Family History Medical History Relation [...] Sign Reading Time Taken Comments Blood Pressure 118/80 03/16/2025 3:13 PM EDT Pulse 72 03/16/2025 3:13 PM EDT Temperature 36.5 C (97.7 F) 03/16/2025 3:13 PM EDT Respiratory Rate 14 03/16/2025 3:13 PM EDT Oxygen Saturation 99% 03/16/2025 3:13 PM EDT Inhaled Oxygen Concentration - - Weight 63 kg (139 lb) 03/16/2025 3:13 PM EDT Height 157.5 cm (5' 2 ) 03/16/2025 3:13 PM EDT Body Mass Index 25.42 03/16/2025 3:13 PM EDT Plan of Treatment Upcoming Encounters Date Type Department Care Team (Late st Contact Info) Description 06/20/2025 11:00 AM EST Office Visit Gastroenterology - [place] [address] [facility] [address] [facility] [address] [place] [phone] Lucia Holman, ROS [address] [facility] [address] [place] [address] 10/12/2025 4:30 PM EST Office Visit Adult Medicine [facility] [address] [place] [phone] Logan Snyder MD [address] [place] [address] Health Maintenance Due Date Last Done Comments Hepatitis B Vaccines (2 of 3 - 19+ 3-dose series) 08/31/2013 08/03/2013 Zoster Vaccines (1 of 2) 2013 Breast Cancer Screening 04/13/2021 04/13/2019, 04/13 HIV Screening 07/26/2022 Social Influencers of Health Screening 07/26/2022 RSV Immunization Adult Patients (1 - Risk 60-74 years 1-dose series) 2023 Pneumococcal Vaccine: 50+ Years (3 of 3 - PCV20 or PCV21) 03/07/2024 03/07/2019, 01/08/2016, 03/28/2014 COVID-19 Vaccine (2 - season) 2024 07/04/2021 Cervical Cancer Screening: HPV 07/25/2024 07/25/2019 Depression Screening 08/17/2024 Influenza Vaccine (#1) 2025 , 08/13/2020, 10/17/2019, Additional history exists Lung Cancer Screening (Low Dose CT) 06/09/2025 06/09/2024, 05/08/2021 DTaP,Tdap,and Td Vaccines (3 - Td or Tdap) 07/03/2026 07/03/2016, 08/03/2013 Cholesterol Screening (Lipid Panel) 03/16/2030 03/16/2025, 09/14/2024, 01/27/2024, Additional history exists Colorectal Cancer Screening: Colonoscopy 02/07/2035 02/07/2025, 12/21/2014 [...] Procedure Name Priority Date/Time Associated Diagnosis Comments LIPID PANEL WITH REFLEX TO DIRECT LDL Routine 03/16/2025 4:10 PM EDT Pure hypercholesterolemia COMPREHENSIVE METABOLIC PANEL Routine 03/16/2025 4:10 PM EDT Encounter for long-term (current) use of medications HEMOGLOBIN A1C Routine 03/16/2025 4:10 PM EDT Prediabetes COLONOSCOPY Routine 02/07/2025 11:01 AM EDT Colon cancer screening XR LUMBAR SPINE 4+ VIEWS Routine 01/13/2025 8:51 AM EDT Chronic midline low back pain, unspecified whether sciatica present Chronic right-sided low back pain, unspecified whether sciatica present CT LUNG SCREENING LOW DOSE Routine 06/09/2024 10:45 AM EDT Personal history of nicotine dependence HM HPV Routine 07/25/2019 ROYA SCREENING DIGITAL Routine 04/13/2019 11:28 AM EDT Encounter for screening mammogram for malignant neoplasm of breast HEPATITIS C SCREENING Routine 03/01/2013 from Last 3 Months or Most Recently Relevant to Health Maintenance Results * Lipid panel with reflex to direct LDL (03/16/2025 4:10 PM EDT) Cholesterol 186 0 - 200 mg/dL LAB CHEMISTRY METHOD 03/16/2025 6:47 PM EDT [facility] Triglycerides 133 0 - 150 mg/dL LAB CHEMISTRY METHOD 03/16/2025 6:47 PM EDT [facility] HDL 62 >=40 mg/dL LAB CHEMISTRY METHOD 03/16/2025 6:47 PM EDT [facility] LDL Calculated 97 0 - 100 mg/dL LAB CHEMISTRY METHOD 03/16/2025 6:47 PM EDT [facility] VLDL Cholesterol Shilo 26.6 mg/dL LAB CHEMISTRY METHOD 03/16/2025 6:47 PM EDT [facility] Non HDL Chol. (LDL+VLDL) 124 <145 mg/dL LAB CHEMISTRY METHOD 03/16/2025 6:47 PM EDT [facility] Chol/HDL Ratio 3.0 0.0 - 4.4 LAB CHEMISTRY METHOD 03/16/2025 6:47 PM EDT [facility] Blood Venous blood specimen / Unknown Venipuncture / Unknown 03/16/2025 4:10 PM EDT 03/16/2025 4:10 PM EDT us Logan Snyder MD LAB BLOOD ORDERABLES Final Resu lt [facility] [address] [place] [address], * Hemoglobin A1c (03/16/2025 4:10 PM EDT) Hemoglobin A1C 5.8 <6.5 % LAB CHEMISTRY METHOD 03/16/2025 9:56 PM T [facility] Mean Bld Glu Estim. 120 mg/dL LAB CHEMISTRY METHOD 03/16/2025 9:56 PM [facility] Blood Venous blood specimen / Unknown Venipuncture / Unknown 03/16/2025 4:10 PM EDT 03/16/2025 4:10 PM EDT us Logan Snyder MD LAB BLOOD ORDERABLES Final Resu lt [facility] [address] [place] [address], * Comprehensive metabolic panel (03/16/2025 4:10 PM EDT) Sodium 139 133 - 145 mmol/L LAB CHEMISTRY METHOD 03/16/2025 6:47 PM [facility] Potassium 4.0 3.5 - 5.5 mmol/L LAB CHEMISTRY METHOD 03/16/2025 6:47 PM [facility] Chloride 107 96 - 110 mmol/L LAB CHEMISTRY METHOD 03/16/2025 6:47 PM [facility] CO2 26 21 - 32 mmol/L LAB CHEMISTRY METHOD 03/16/2025 6:47 PM [facility] Anion Gap 6 3 - 11 LAB CHEMISTRY METHOD 03/16/2025 6:47 PM [facility] Glucose 93 70 - 100 mg/dL LAB CHEMISTRY METHOD 03/16/2025 6:47 PM [facility] BUN 14 5 - 25 mg/dL LAB CHEMISTRY METHOD 03/16/2025 6:47 PM [facility] Creatinine 0.82 0.50 - 1.10 mg/dL LAB CHEMISTRY METHOD 03/16/2025 6:47 PM [facility] eGFR 81 >=60 mL/min/1. 73m2 LAB CHEMISTRY METHOD 03/16/2025 6:47 PM EDT [facility] Comment:Calculation based on the Chronic Kidney Disease Epidemiology Collaboration (CKD-EPI) equation refit without adjustment for race. BUN/Creatinine Ratio 17.1 LAB CHEMISTRY METHOD 03/16/2025 6:47 PM EDT [facility] Calcium 9.7 8.5 - 10.5 mg/dL LAB CHEMISTRY METHOD 03/16/2025 6:47 PM EDT [facility] AST (SGOT) 20 10 - 42 unit/L LAB CHEMISTRY METHOD 03/16/2025 6:47 PM [facility] ALT (SGPT) 27 10 - 60 unit/L LAB CHEMISTRY METHOD 03/16/2025 6:47 PM [facility] Alkaline Phosphatase 73 42 - 121 unit/L LAB CHEMISTRY METHOD 03/16/2025 6:47 PM T [facility] Total Protein 7.2 6.0 - 8.0 g/dL LAB CHEMISTRY METHOD 03/16/2025 6:47 PM T [facility] Albumin 4.4 3.2 - 5.0 g/dL LAB CHEMISTRY METHOD 03/16/2025 6:47 PM [facility] Total Bilirubin 0.4 0.0 - 1.4 mg/dL LAB CHEMISTRY METHOD 03/16/2025 6:47 PM EDT [facility] Blood Venous blood specimen / Unknown Venipuncture / Unknown 03/16/2025 4:10 PM EDT 03/16/2025 4:10 PM EDT us Logan Snyder MD LAB BLOOD ORDERABLES Final Resu lt [facility] [address] [place] [address], * COLONOSCOPY Anesthesia - MAC; [facility] ENDOSCOPY (02/07/2025 11:01 AM EDT) Anatomical Region Laterality Modality Endoscopy 02/07/2025 10:5 1 AM EDT Impressions 02/07/2025 11:03 AM EDT - Internal hemorrhoids. - The examination was otherwise normal. - No specimens collected. Recommendation: - Discharge patient to home. - Repeat colonoscopy in 10 years for screening purposes. Narrative 02/07/2025 11:03 AM EDT [facility] Patient Name: Moon Cuello Procedure [...] verified by the physician, the nurse, the contact lens polisher and the die technician in the pre-procedure area in the [...] malignant neoplasm of colon CPT copyright 2020 [employer]. All rights reserved. The codes documented in this report are preliminary and upon medical insurance coder review may be revised to meet current compliance requirements. Shannon Blount MD 02/07/2025 11:03:41 AM This report has been signed electronically.Shannon Blount MD Number of Addenda: 0 Note Initiated On: 02/07/2025 10:51 AM Scope Withdrawal Time: 0 hours 6 minutes 5 seconds Scope In: 10:55:49 AM Scope Out: 11:04:25 AM Endoscopy Department at [facility] - [address] [place] [phone] Procedure Note Shannon Blount MD - 02/07/2025 [facility] Patient Name: Moon Cuello Procedure [...] the physician, the nurse, theanesthetist and the die technician in the pre-procedure area in the [...] for malignantneoplasm of colon CPT copyright 2020 [employer]. All rights reserved. The codes documented in this report are preliminary and upon medical insurance coder reviewmay be revised to meet current compliance requirements. Shannon Blount MD 02/07/2025 11:03:41 AM This report has been signed electronically.Shannon Blount MD Number of Addenda: 0 Note Initiated On: 02/07/2025 10:51 AM Scope Withdrawal Time: 0 hours 6 minutes 5 seconds Scope In: 10:55:49 AM Scope Out: 11:04:25 AM Endoscopy Department at [facility] - [address] [place] [phone] IMPRESSION: - Internal hemorrhoids. - The examination [...] Signed Date: 01/13/2025 10:00 ET Workstation ID: [id number] Transcribed By: Self Edit Transcribed Date: 01/13/2025 [...] Signed Date: 01/13/2025 10:00 ET Workstation ID: [id number] Transcribed By: Self Edit Transcribed Date: 01/13/2025 09:56 ET Julia LORA IMG XR PROCEDURES Final Result * CT LUNG SCREENING LOW DOSE (06/09/2024 10:45 AM EDT) Anatomical Region Laterality Modality Computed Tomogra phy 06/09/2024 9:53 AM EDT Narrative 06/09/2024 10:45 AM EDT [facility] Diagnostic Imaging Department [address] [place], [place] [id number] Patient: MOON CUELLO Y /Age/Sex: 1965 - 58 - F Unit#: [id number] Location/Status: SPDICATLS/REG CLI Mnemonic/Ordering Site: [facility] Ordering Physician: MICA ENGLE MD CT Lung Screening Low Dose - 06/09/24 - 1013 Report Status:Signed INDICATION: Quit 4 years ago with 41 pack-year smoking history FINDINGS: Low-dose CT scan of the chest obtained as a lung cancer screening study. Scanner: Down speed 64 slice VCT Dose reduction technique: [...] Note Jayson Mora MD - 06/18/2024 [facility] Diagnostic Imaging Department [address] [place] [address] Patient: MOON CUELLO /Age/Sex: 1965 - 58 - F Unit#: [id number] Location/Status: SPDICATLS/REG CLI Mnemonic/Ordering Site: [facility] Ordering Physician: MICA ENGLE MD CT Lung Screening Low Dose - 06/09/24 - 1013 Report Status:Signed INDICATION: Quit 4 years ago with 41 pack-year smoking history FINDINGS: Low-dose CT scan of the chest obtained as a lung cancerscreening study. Scanner: Down speed 64 slice VCT Dose reduction technique: [...] (07/25/2019) Cervical Cancer Screening: HPV Negative, Abstracted Sina Provider HEALTH MAINTENANCE Final Result * [facility] SCREENING DIGITAL (04/13/2019 11:28 AM EDT) Anatomical Region Laterality Modality Mammography 04/13/2019 9:19 AM EDT Narrative 04/13/2019 11:28 AM EDT [facility] Diagnostic Imaging Department [address] [place] [phone] Patient: MOON CUELLO Tr /Age/Sex: 1965 - 53 - F Unit#: [id number] Location/Status: SPDIMAM/REG CLI Mnemonic/Ordering Site: [facility] Ordering Physician: SHRUTI FRANK DO Roya Screening Digital - 04/13/19 - 48 INDICATION: SCREENING COMPARISON: 12/17/2016 and additional outside exams of 12/20/2014 and 05/26/2013 TECHNIQUE: CC and MLO views of the breasts were obtained, using full field digital mammography with 3D tomosynthesis views in the MLO projection. Computer aided detection with the [employer] 7.2-H was employed. FINDINGS: The breasts contain [...] a target date for the next mammogram. G0224 / [id number]) , [id number] Dictating Physician: ANGELITO HAWTHORNE MD Electronically Signed by: ANGELITO HAWTHORNE MD Dic Date/Time: 04/13/19 112 Sign date/Time: 04/13/19 1128 Procedure Note Angelito Hawthorne - 08/06/2022 [facility] Diagnostic Imaging Department [address] [place] [address] Patient: CONCHITAMOON Armando /Age/Sex: 1965 - 53 - F Unit#: [id number] Location/Status: SPDIMA/REG CLI Mnemonic/Ordering Site: [facility] Ordering Physician: SHRUTI FRANK DO Roya Screening Digital - 04/13/19 - 0948 INDICATION: SCREENING COMPARISON: 12/17/2016 and additional outside exams of 12/20/2014 and05/26/2013 TECHNIQUE: CC and MLO views of the breasts were obtained, using full field digital mammography with 3D tomosynthesis views in the MLO projection. Computer aided detection with the [employer] 7.2-H was employed. FINDINGS: The breasts contain [...] a target date for the next mammogram. (G0432 / [id number]) , [id number] Dictating Physician: ANGELITO HAWTHORNE MD Electronically Signed by: ANGELITO HAWTHORNE MD Dic Date/Time: 04/13/19 1122 Sign date/Time: 04/13/19 1128 Shruti Frank DO IMG BI PROCEDURES Final Result * Hepatitis C Screening (03/01/2013) Hepatitis C Screening Abstracted Historical Provider HEALTH MAINTENANCE Final Result from Last 3 Months or Most Recently Relevant to Health Maintenance Insurance [facility] [employer] Advance Directives Documents on File Type Date Recorded Patient Floor Manager Expl anation Health Care Decision (hx) [...] (hx) 12/24/2021 AD GARCÍA DIRECTIVE Care Teams Highway Maintenance Technician Relationship Specialty Start Date End Date Logan Snyder MD [address] [place] [id number] PCP - General Internal Medicine 06/17/21
--- OUTSIDE RECORDS SUMMARY | 2025-04-05 12:36 | XMS_ITS | Clinical Summary ---
Author Organization [facility] Address [address] [place] [address] Care Team Providers Care Plain Clothes Police Officer Name Role Phone Shruti Morales DO Primary [...] age to complete this topic Care Teams Plain Clothes Police Officer Relationship Specialty Start Date End Date Shruti Morales DO PCP - General Boat Tender 05/21/20
== END 2025-04-05 11:41 | disposition home or self-care (01) ==
LOC: HO.HOS 11:11
PROVIDERS: PCP Internal Medicine
DX: G56.03 Carpal tunnel syndrome, bilateral upper limbs (principal)
CPT/HCPCS: 99024

== ENCOUNTER → 2025-04-05 11:11 | Outpatient (BNVA) | payer OTHER, SELFPAY | PROVIDERS: PCP Internal Medicine | DX: G56.03 Carpal tunnel syndrome, bilateral upper limbs (principal) | CPT/HCPCS: 99212 ==

== ENCOUNTER 2025-06-08 11:26 | Outpatient (REF) | payer OTHER, SELFPAY ==
[2025-06-08 13:35] LABS: Alanine Aminotransferase 27 U/L (0-31); Albumin Level 4.6 g/dL (3.5-5.0); Alkaline Phosphatase 61 U/L (39-117); Anion Gap 11 (12-20); Aspartate Amino Transferase 29 U/L (5-31); Blood Urea Nitrogen 13 mg/dL (9-16); Calcium 9.3 mg/dL (8.4-10.2); Carbon Dioxide 28 mmol/L (22-29); Chloride 108 mmol/L (96-108); Estimated Glomerular Filt Rate > 60; Potassium 4.9 mmol/L (3.3-5.1); Sodium 142 mmol/L (135-145); Total Protein 7.3 g/dL (6.5-8.0)
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
--- OUTSIDE RECORDS SUMMARY | 2025-06-08 14:37 | XMS_ITS | Encounter Summary ---
Author Organization [employer] [facility] Address [address] [facility] [address] [place] [address] Care Team Providers Care Farm Loan Inspector Name Role Phone Unavailable Primary Care Provider [...]
--- OUTSIDE RECORDS SUMMARY | 2025-06-08 14:37 | XMS_ITS | Clinical Summary ---
Author Organization [employer] Address [address] [facility] [address] [place] [address] Care Team Providers Care Singing Messenger Name Role Phone Unavailable Primary Care Provider [...] 1965 FIT 1965 FOBT 1965 Sigmoidoscopy 1965 Disability Screening 1965 Alcohol/Substance Use Screening 1975 Tobacco Screening 1975 Pap Smear 1984 Cervical Cancer Screening 1993 HPV/Cotest 1993 Mammogram 2003 Hepatitis B Vaccines (2 of 3 - 19+ 3-dose series) 08/31/2013 08/03/2013 Zoster Vaccines (1 of 2) 2013 COVID-19 Vaccine (2 - season) 2025 07/04/2021 Influenza Vaccine (#1) 2025 , 08/13/2020, 10/17/2019, Additional history exists DTaP/Tdap/Td [...]
--- OUTSIDE RECORDS SUMMARY | 2025-06-08 14:37 | XMS_ITS | Clinical Summary ---
Author Organization [employer] [facility] Address [address] [place] [address] Care Team Providers Care Glass Calibrator Name Role Phone Shruti Morales DO Primary [...] age to complete this topic Care Teams Glass Calibrator Relationship Specialty Start Date End Date Shruti Morales DO PCP - General Sap Solution Manager Consultant 05/21/20
== END 2025-06-08 11:27 | disposition home or self-care (01) ==
LOC: HO.10HDL 11:26
PROVIDERS: Visit Provider Student in an Organized Health Care Education/Training Program
DX: G89.29 Other chronic pain (principal); M54.41 Lumbago with sciatica, right side; M35.3 Polymyalgia rheumatica; M25.561 Pain in right knee; Z79.899 Other long term (current) drug therapy
CPT/HCPCS: 36415; 80053; 82306; 99212

== ENCOUNTER 2025-06-08 11:34 | Outpatient (AMB) | payer OTHER, SELFPAY ==
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
== END 2025-06-08 13:37 | disposition home or self-care (01) ==
LOC: HO.HOS 11:35
PROVIDERS: PCP Internal Medicine; Visit Provider Physical Medicine & Rehabilitation
DX: M54.41 Lumbago with sciatica, right side (principal); G89.29 Other chronic pain; M54.59 Other low back pain; M25.561 Pain in right knee
CPT/HCPCS: 99213

== ENCOUNTER 2025-07-26 13:22 | Outpatient (AMB) | payer OTHER, SELFPAY ==
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
--- OUTSIDE RECORDS SUMMARY | 2025-07-26 20:51 | XMS_ITS | Clinical Summary ---
Author Organization [facility] Prior to 01/14/25 Address [address] [place] [address] Care Team Providers Care Pension Adviser Name Role Phone Shruti Morales DO Primary Care P kerender Social History Tobacco Use Types Packs/Day Years [...] Tdap) 08/03/2023 08/03/2013 Influenza Vaccine (#1) 2025 0, 10/17/2019, 07/13/2018 RSV Adult > 60+ Yrs [...] age to complete this topic Care Teams Pension Adviser Relationship Specialty Start Date End Date Shruti Morales DO PCP - General Plastics Factory Worker 05/21/20
--- OUTSIDE RECORDS SUMMARY | 2025-07-26 20:51 | XMS_ITS | Clinical Summary ---
Author Organization [employer] Address [address] [facility] [address] [place] [address] Care Team Providers Care Fisher Eel Name Role Phone Unavailable Primary Care Provider [...]
--- OUTSIDE RECORDS SUMMARY | 2025-07-26 20:51 | XMS_ITS | Encounter Summary ---
Author Organization [facility] [facility] Address [address] [facility] [address] [place] [address] Care Team Providers Care Data Processing Operator Name Role Phone Unavailable Primary Care Provider [...]
--- OUTSIDE RECORDS SUMMARY | 2025-07-26 20:51 | XMS_ITS | Clinical Summary ---
Author Organization [address] [place] [address] [place] [phone] Phone Care Team Providers Care Acquisitions Librarian Name Role Phone Logan Snyder MD Primary Care Provider [phone] Allergies Active Allergy Reactions Criticality Noted Date [...] 90 each 1 5 04/24/20 26 Active Combigan 0.2-0.5 % ophthalmic solution 5 Active HYDROcodone-tej taminophen (NORCO) 5-325 mg per tablet 5 Active polyethylene glycol (PEG) 17 gram/dose oral powder 5 Active polyethylene glycol-electrol ytes (NULYTELY) 420 gram solution 5 Active Active Problems Problem Noted Date [...] Encounters Date Type Department Care Team Description 06/28/2025 8:57 AM EST - 06/28/2025 11:59 PM EST Hospital Encounter [facility] CT Scan [address] [place] [phone] Encounter for screening for malignant neoplasm of respiratory organs; Personal history of nicotine dependence Discharge Disposition: Home or Self Care 05/23/2025 Telephone Lung Screening Program - [address] [phone] Ericka Espinoza MA from Last 3 Months Immunizations Immunization Administration Dates Next Due Hepatitis B (Sutmzyg-W-Bowvy , Recombivax HB-Adult) 19yo and older 08/03/2013 [...] Comments COPD (chronic obstructive pulmonary disease) ( S/HCC V24, [facility] V28) Asthma Hyperlipidemia Diabetes mellitus ([facility] V24, [facility] V28) Hypertension Family History Medical History Relation [...] on file Sexual Orientation Not on file Last Filed Vital Signs Vital Sign Reading [...] Care Team (Late st Contact Info) Description 10/12/2025 4:30 PM EST Office Visit Adult Medicine [address] [phone] Logan Snyder MD [address] [place] [address] 01/25/2026 10:00 AM EDT Office Visit Gastroenterology - [address] [phone] Lucia Holman NP [address] [place] [phone] Health Maintenance Due Date Last Done Comments [...] Depression Screening 08/17/2024 COVID-19 Vaccine (2 - 2024- season) 2025 07/04/2021 Influenza Vaccine (#1) 2025 , 08/13/2020, 10/17/2019, Additional history exists Lung Cancer Screening (Low Dose CT) 06/28/2026 06/28/2025, 06/09/2024, 05/08/2021 DTaP,Tdap,and Td Vaccines (3 - [...] Procedure Name Priority Date/Time Associated Diagnosis Comments CT LUNG SCREENING Routine 06/28/2025 9:1 6 AM EST Encounter for screening for malignant neoplasm of respiratory organs Personal history of nicotine dependence LIPID PANEL WITH REFLEX TO DIRECT LDL Routine 03/16/2025 4:10 PM EDT Pure hypercholesterolemia COLONOSCOPY Routine 02/07/2025 11:01 AM EDT Colon cancer screening HPV Routine 07/25/2019 ROYA SCREENING DIGITAL Routine 04/13/2019 11:28 AM EDT Encounter for screening mammogram for malignant neoplasm of breast HEPATITIS C SCREENING Routine 03/01/2013 from Last 3 Months or Most Recently Relevant to Health Maintenance Results * CT Lung Screening (06/28/2025 9:16 AM EST) Anatomical Region Laterality Modality Chest Computed Tomogra phy 07/05/2025 2:51 PM EST Impressions 07/05/2025 2:58 PM EST Impression: No suspicious developing pulmonary nodule. No significant change. Lung-RADS Category: Lung-RADS 2: Nodule(s) with benign appearance or behavior. Continue annual screening with Low Dose Chest CT in 12 months. Telerad GUIDO ([id number]) -------- FINAL REPORT -------- Dictated By: Tamera Peña Dictated Date: 07/05/2025 14:51 ET Assigned Physician: Tamera Peña Reviewed and Electronically Signed By: Tamera Peña Signed Date: 07/05/2025 14:58 ET Workstation ID: [id number] Transcribed By: Self Edit Transcribed Date: 07/05/2025 14:51 ET Narrative 07/05/2025 2:58 PM EST History: 59 year-old 40 pack-year former smoker, asymptomatic, for lung cancer screening. Quit smoking 6 years ago. Comparison: 06/09/24 Technique: Helical volumetric imaging of the thorax was performed, using low- dose technique, without IV contrast. DLP: 88.84 mGy/cm CTDIvol: 3.22 mGy [employer] VCT Iterative reconstruction technique Findings: Lungs and Airways: The trachea and central bronchial tree remain patent. Diffuse bronchial wall thickening is again seen. Solid, noncalcified pulmonary nodules include a 3 mm right upper lobe nodule (image 80 series 3), a 4 mm right upper lobe perifissural nodule (image 98), a 5 mm right lower lobe nodule (image 113), and a 3 mm left upper lobe nodule (image 55), all without significant change. No suspicious developing nodule is seen. Pleura: No pleural or pericardial effusions are seen. Base of neck, mediastinum and heart: The heart remains normal in size. Mild atherosclerotic calcification of the thoracic aorta is seen. No developing thoracic lymphadenopathy is noted. Soft tissues: The overlying soft tissues are unremarkable. Abdomen: This study was performed without contrast and with lower than standard dose. These factors reduce the sensitivity for detection of small lesions in the upper abdomen. No significant abnormality is seen. Procedure Note Tamera Peña MD - 07/05/2025 History: 59 year-old 40 pack-year former smoker, asymptomatic, for lungcancer screening. Quit smoking 6 years ago. Comparison: 06/09/24 Technique: Helical volumetric imaging of the thorax was performed, usinglow-dose technique, without IV contrast. DLP: 88.84 mGy/cm CTDIvol: 3.22 mGy [employer] VCT Iterative reconstruction technique Findings: Lungs and Airways: The trachea and central bronchial tree remain patent.Diffuse bronchial wall thickening is again seen. Solid, noncalcified pulmonary nodules include a 3 mm right upper lobenodule (image 80 series 3), a 4 mm right upper lobe perifissural nodule(image 98), a 5 mm right lower lobe nodule (image 113), and a 3 mm leftupper lobe nodule (image 55), all without significant change. No suspicious developing nodule is seen. Pleura: No pleural or pericardial effusions are seen. Base of neck, mediastinum and heart: The heart remains normal in size.Mild atherosclerotic calcification of the thoracic aorta is seen. Nodeveloping thoracic lymphadenopathy is noted. Soft tissues: The overlying soft tissues are unremarkable. Abdomen: This study was performed without contrast and with lower thanstandard dose. These factors reduce the sensitivity for detection of smalllesions in the upper abdomen. No significant abnormality is seen. IMPRESSION: Impression: No suspicious developing pulmonary nodule. No significant change. Lung-RADS Category: Lung-RADS 2: Nodule(s) with benign appearance orbehavior. Continue annual screening with Low Dose Chest CT in 12 months. Telerad PA ([id number]) -------- FINAL REPORT -------- Dictated By: Tamera Peña Dictated Date: 07/05/2025 14:51 ET Assigned Physician: Tamera Peña Reviewed and Electronically Signed By: Tamera Peña Signed Date: 07/05/2025 14:58 ET Workstation ID: [id number] Transcribed By: Self Edit Transcribed Date: 07/05/2025 14:51 ET us Mak Rojas MD IMG CT PROCEDURES Final Result * Lipid panel with reflex to direct LDL (03/16/2025 4:10 PM EDT) Cholesterol 186 0 - 200 mg/dL LAB CHEMISTRY METHOD 03/16/2025 6:47 PM EDT [facility] Triglycerides 133 0 - 150 mg/dL LAB CHEMISTRY METHOD 03/16/2025 6:47 PM EDT [facility] HDL 62 >=40 mg/dL LAB CHEMISTRY METHOD 03/16/2025 6:47 PM EDT [facility] LDL Calculated 97 0 - 100 mg/dL LAB CHEMISTRY METHOD 03/16/2025 6:47 PM EDT [facility] VLDL Cholesterol Shilo 26.6 mg/dL LAB CHEMISTRY METHOD 03/16/2025 6:47 PM EDT [facility] Non HDL Chol. (LDL+VLDL) 124 <145 mg/dL LAB CHEMISTRY METHOD 03/16/2025 6:47 PM EDT [facility] Chol/HDL Ratio 3.0 0.0 - 4.4 LAB CHEMISTRY METHOD 03/16/2025 6:47 PM EDT [facility] Blood Venous blood specimen / Unknown Venipuncture / Unknown 03/16/2025 4:10 PM EDT 03/16/2025 4:10 PM EDT us Logan Snyder MD LAB BLOOD ORDERABLES Final Resu lt [facility]) [facility] [address] [place] [address], * COLONOSCOPY Anesthesia - MAC; [facility] ENDOSCOPY (02/07/2025 11:01 AM EDT) Anatomical Region Laterality Modality Endoscopy 02/07/2025 10:5 1 AM EDT Impressions 02/07/2025 11:03 AM EDT - Internal hemorrhoids. - The examination was otherwise normal. - No specimens collected. Recommendation: - Discharge patient to home. - Repeat colonoscopy in 10 years for screening purposes. Narrative 02/07/2025 11:[address] [facility] GI Patient Name: Moon Cuello Procedure Date: [...] verified by the physician, the nurse, the management advisor and the optical engineering technician in the pre-procedure area in the [...] malignant neoplasm of colon CPT copyright 2020 [employer]. All rights reserved. The codes documented in this report are preliminary and upon police chief review may be revised to meet current compliance requirements. Shannon Blount MD 02/07/2025 11:03:41 AM This report has been signed electronically.Shannon Blount MD Number of Addenda: 0 Note Initiated On: 02/07/2025 10:51 AM Scope Withdrawal Time: 0 hours 6 minutes 5 seconds Scope In: 10:55:49 AM Scope Out: 11:04:25 AM Endoscopy Department at [facility] - [address] [place] [phone] Procedure Note Shannon Blount MD - 02/07/2025 [facility] Patient Name: Moon Cuello Procedure Date: [...] the physician, the nurse, theanesthetist and the optical engineering technician in the pre-procedure area in the [...] for malignantneoplasm of colon CPT copyright 2020 [employer]. All rights reserved. The codes documented in this report are preliminary and upon police chief reviewmay be revised to meet current compliance requirements. Shannon Blount MD 02/07/2025 11:03:41 AM This report has been signed electronically.Shannon Blount MD Number of Addenda: 0 Note Initiated On: 02/07/2025 10:51 AM Scope Withdrawal Time: 0 hours 6 minutes 5 seconds Scope In: 10:55:49 AM Scope Out: 11:04:25 AM Endoscopy Department at [facility] - [address] [place] [phone] IMPRESSION: - Internal hemorrhoids. - The examination was otherwise normal. - No specimens collected. Recommendation: - Discharge patient to home. - Repeat colonoscopy in 10 years for screening purposes. Shannon Blount MD GI~PROCEDURE ORDERABLES Fin al Result * Cervical Cancer Screening: HPV (07/25/2019) Cervical Cancer Screening: HPV Negative, Abstracted Historical Provider HEALTH MAINTENANCE Final Result * ROYA SCREENING DIGITAL (04/13/2019 11:28 AM EDT) Anatomical Region Laterality Modality Mammography 04/13/2019 9:19 AM EDT Narrative 04/13/2019 11:28 AM EDT [facility] Diagnostic Imaging Department [address] [place] [address] [phone] Patient: MOON CUELLO /Age/Sex: 1965 - 53 - F Unit#: [id number] Location/Status: SPDIMAM/REG CLI Mnemonic[facility] Ordering Physician: JOE ROBLESLA DO Roya Screening Digital - 04/13/19 - 0948 INDICATION: SCREENING COMPARISON: 12/17/2016 and additional outside exams of 12/20/2014 and 05/26/2013 TECHNIQUE: CC and MLO views of the breasts were obtained, using full field digital mammography with 3D tomosynthesis views in the MLO projection. Computer aided detection with the [employer].2-H was employed. FINDINGS: The breasts contain heterogeneously [...] a target date for the next mammogram. G0728 / [id number]) , [id number] Dictating Physician: ANGELITO SERRANO MD Electronically Signed by: ANGELITO SERRANO MD Dic Date/Time: 04/13/19 1122 Sign date/Time: 04/13/19 1128 Procedure Note Angelito Serrano - 08/06/2022 [facility] Diagnostic Imaging Department [address] [place] [address] [phone] Patient: MOON CUELLO /Age/Sex: 1965 - 53 - F Unit#: [id number] Location/Status: SPDIMAM/REG CLI Mnemonic/Ordering Site: [facility] Ordering Physician: SHRUTI ROBLES DO Roya Screening Digital - 04/13/19 - 947 INDICATION: SCREENING COMPARISON: 12/17/2016 and additional outside exams of 12/20/2014 and05/26/2013 TECHNIQUE: CC and MLO views of the breasts were obtained, using full field digital mammography with 3D tomosynthesis views in the MLO projection. Computer aided detection with the [employer].2-H was employed. FINDINGS: The breasts contain [...] a target date for the next mammogram. G0127 / [id number]) , [id number] Dictating Physician: ANGELITO SERRANO MD Electronically Signed by: ANGELITO SERRANO MD Dic Date/Time: 04/13/19 1122 Sign date/Time: 04/13/19 1128 Shruti Robles DO [facility] BI PROCEDURES Final Result * Hepatitis C Screening (03/01/2013) Hepatitis C Screening Abstracted us Historical Provider HEALTH MAINTENANCE Final Result from Last 3 Months or Most Recently Relevant to Health Maintenance Insurance [facility] Advance Directives Documents on File Type Date Recorded Patient [place] Expl anation Health Care Decision (hx) 12/24/2021 [...] (hx) 12/24/2021 AD GARCÍA DIRECTIVE Care Teams Acquisitions Librarian Relationship Specialty Start Date End Date Logan Snyder MD [address] [place] [phone] PCP - General Internal Medicine 06/17/21
== END 2025-07-26 14:53 | disposition home or self-care (01) ==
LOC: HO.HOS 13:22
PROVIDERS: PCP Internal Medicine; Visit Provider Physician Assistant
DX: M17.11 Unilateral primary osteoarthritis, right knee (principal)
CPT/HCPCS: 20610; 99213

== ENCOUNTER → 2025-07-26 13:25 | Outpatient (BNV) | payer OTHER, SELFPAY | PROVIDERS: Visit Provider Radiology Diagnostic Radiology | DX: M17.11 Unilateral primary osteoarthritis, right knee (principal); M17.32 Unilateral post-traumatic osteoarthritis, left knee | CPT/HCPCS: 73562 ==

== ENCOUNTER 2025-07-26 15:04 | Outpatient (REF) | payer OTHER, SELFPAY ==
--- NOTE | ~2025-07-26 | XR_ITS ---
EXAMINATION: XR KNEE, RIGHT CLINICAL INFORMATION: M17.11 - Unilateral primary osteoarthritis, right knee COMPARISON: AP standing x-ray from 07/17/2022 TECHNIQUE: AP weightbearing bilateral, sunrise, and lateral views of the right knee. FINDINGS: There is subtle narrowing of medial joint space. Intercondylar tubercles are peaked. Small marginal osteophytes are present along the medial joint line and patellofemoral joint. There is no joint effusion. In the left knee redemonstrates a healed fracture of the distal metadiaphysis with persistent varus deformity across the fracture. There is a mottled appearance of the bone distal to the fracture likely related to altered mechanics and chronic changes associated with remodeling of the fracture. However, joint space narrowing is minimal and only in the medial compartment. Marginal osteophytes in the medial lateral compartment are increasing in size. XR/XR knee RT 3V IMPRESSION: Minimal changes consistent with osteoarthritis. Mild posttraumatic osteoarthritis involving the left knee has mildly increased. Electronically signed by: Rudolph Lujan MD 07/26/2025 02:00 PM SANCHEZ DE
--- OUTSIDE RECORDS SUMMARY | 2025-07-27 22:37 | XMS_ITS | Encounter Summary ---
Author Organization [facility] Address [address] [facility] [address] [place] [address] Care Team Providers Care Wet Process Operator Name Role Phone Unavailable Primary Care [...]
--- OUTSIDE RECORDS SUMMARY | 2025-07-27 22:37 | XMS_ITS | Clinical Summary ---
Author Organization [employer] Address [address] [facility] [address] [place] [address] Care Team Providers Care Child Care Team Lead Name Role Phone Unavailable Primary Care Provider [...]
--- OUTSIDE RECORDS SUMMARY | 2025-07-27 22:37 | XMS_ITS | Clinical Summary ---
Author Organization [facility] [facility] Prior to 01/14/25 Address [address] [place] [address] Care Team Providers Care Senior It Security Analyst Name Role Phone Shruti Morales DO Primary [...] to complete this topic Care Teams Senior It Security Analyst Relationship Specialty Start Date End Date Shruti Morales DO PCP - General Skein Winding Operator 05/21/20
--- OUTSIDE RECORDS SUMMARY | 2025-07-27 22:37 | XMS_ITS | Clinical Summary ---
Author Organization [address] [place] [address] [place] [phone] Phone Care Team Providers Care Imagery Analyst Name Role Phone Logan Snyder MD Primary Care Provider [phone] Allergies Active Allergy Reactions Criticality Noted Date [...] - 06/28/2025 11:59 PM EST Hospital Encounter [facility] CT Scan [address] [place] [phone] Encounter for screening for malignant neoplasm of respiratory organs; Personal history of nicotine dependence Discharge Disposition: Home or Self Care 05/23/2025 Telephone Lung Screening Program - [address] [phone] Ericka Espinoza MA from Last 3 Months Immunizations Immunization Administration Dates Next Due Hepatitis B (Ycgulbr-E-Rynml , Recombivax HB-Adult) 19yo and older 08/03/2013 [...] (chronic obstructive pulmonary disease) ( S/HCC V24, [facility] V28) Asthma Hyperlipidemia Diabetes mellitus ([facility] V24, [facility] V28) Hypertension Family History Medical History Relation [...] 4:30 PM EST Office Visit Adult Medicine [address] [phone] Logan Snyder MD [address] [place] [address] 01/25/2026 10:00 AM EDT Office Visit Gastroenterology - [address] [phone] Lucia Holman NP [address] [place] [phone] Health Maintenance Due Date Last Done Comments [...] Chest CT in 12 months. Telerad GUIDO ([id number]) -------- FINAL REPORT -------- Dictated By: Tamera Peña Dictated Date: 07/05/2025 14:51 ET Assigned Physician: Tamera Peña Reviewed and Electronically Signed By: Tamera Peña Signed Date: 07/05/2025 14:58 ET Workstation ID: [id number] Transcribed By: Self Edit Transcribed Date: 07/05/2025 14:51 ET Narrative 07/05/2025 2:58 PM EST History: 59 year-old 40 pack-year former smoker, asymptomatic, for lung cancer screening. Quit smoking 6 years ago. Comparison: 06/09/24 Technique: Helical volumetric imaging of the thorax was performed, using low- dose technique, without IV contrast. DLP: 88.84 mGy/cm CTDIvol: 3.22 mGy Stremor VCT Iterative reconstruction technique Findings: Lungs and [...] contrast. DLP: 88.84 mGy/cm CTDIvol: 3.22 mGy Stremor VCT Iterative reconstruction technique Findings: Lungs and [...] Chest CT in 12 months. [place] ([id number]) -------- FINAL REPORT -------- Dictated By: Tamera Peña Dictated Date: 07/05/2025 14:51 ET Assigned Physician: Tamera Peña Reviewed and Electronically Signed By: Tamera Peña Signed Date: 07/05/2025 14:58 ET Workstation ID: [id number] Transcribed By: Self Edit Transcribed Date: 07/05/2025 [...] MD LAB BLOOD ORDERABLES Final Resu lt [facility] [address] [place] [address], * COLONOSCOPY Anesthesia - MAC; [facility] ENDOSCOPY (02/07/2025 11:01 AM EDT) Anatomical Region Laterality Modality Endoscopy 02/07/2025 10:5 1 AM EDT Impressions 02/07/2025 11:03 AM EDT - Internal hemorrhoids. - The examination was otherwise normal. - No specimens collected. Recommendation: - Discharge patient to home. - Repeat colonoscopy in 10 years for screening purposes. Narrative 02/07/2025 11:03 AM EDT [facility] GI Patient Name: Moon Cuello Procedure [...] verified by the physician, the nurse, the armature winder automotive and the nuclear technician in the pre-procedure area in the [...] malignant neoplasm of colon CPT copyright 2020 [employer] [place] [employer]. All rights reserved. The codes documented in this report are preliminary and upon rn women services review may be revised to meet current compliance requirements. Shannon Blount MD 02/07/2025 11:03:41 AM This report has been signed electronically.Shannon Blount MD Number of Addenda: 0 Note Initiated On: 02/07/2025 10:51 AM Scope Withdrawal Time: 0 hours 6 minutes 5 seconds Scope In: 10:55:49 AM Scope Out: 11:04:25 AM Endoscopy Department at [facility] - [address] [place] [phone] Procedure Note Shannon Blount MD - 02/07/2025 [facility] GI Patient Name: Moon Cuello Procedure [...] the physician, the nurse, theanesthetist and the nuclear technician in the pre-procedure area in the [...] for malignantneoplasm of colon CPT copyright 2020 [employer] [place] [employer]. All rights reserved. The codes documented in this report are preliminary and upon rn women services reviewmay be revised to meet current compliance requirements. Shannon Blount MD 02/07/2025 11:03:41 AM This report has been signed electronically.Shannon Blount MD Number of Addenda: 0 Note Initiated On: 02/07/2025 10:51 AM Scope Withdrawal Time: 0 hours 6 minutes 5 seconds Scope In: 10:55:49 AM Scope Out: 11:04:25 AM Endoscopy Department at [facility] - [address] [place] [phone] IMPRESSION: - Internal hemorrhoids. - The examination [...] AM EDT Narrative 04/13/2019 11:28 AM EDT [facility] Diagnostic Imaging Department [address] [place] [address] [id number] Patient: MOON CUELLO /Age/Sex: 1965 - 53 - F Unit#: [id number] Location/Status: SPDIMAM/REG CLI Mnemonic[facility] Order[facility] Physician: JOE ROBLESLA DO Roya Screening Digital - 04/13/19 - 0948 INDICATION: SCREENING COMPARISON: 12/17/2016 and additional outside exams of 12/20/2014 and 05/26/2013 TECHNIQUE: CC and MLO views of the breasts were obtained, using full field digital mammography with 3D tomosynthesis views in the MLO projection. Computer aided detection with the [employer].2-H was employed. FINDINGS: The breasts contain heterogeneously [...] a target date for the next mammogram. G0310 / [id number]) , [id number] Dictating Physician: ANGELITO SERRANO MD Electronically Signed by: ANGELITO SERRANO MD Dic Date/Time: 04/13/19 1122 Sign date/Time: 04/13/19 1128 Procedure Note Angelito Serrano - 08/06/2022 [facility] Diagnostic Imaging Department [address] [place] [address] [id number] Patient: MOON CUELLO /Age/Sex: 1965 - 53 - F Unit#: [id number] Location/Status: SPDIMAM/REG CLI Mnemonic/Ordering Site: [facility] Ordering Physician: SHRUTI ROBLES DO Roya Screening Digital - 04/13/19 - 947 INDICATION: SCREENING COMPARISON: 12/17/2016 and additional outside exams of 12/20/2014 and05/26/2013 TECHNIQUE: CC and MLO views of the breasts were obtained, using full field digital mammography with 3D tomosynthesis views in the MLO projection. Computer aided detection with the [employer] 7.2-H was employed. FINDINGS: The breasts contain [...] a target date for the next mammogram. G0395 / [id number]) , [id number] Dictating Physician: ANGELITO SERRANO MD Electronically Signed by: ANGELITO SERRANO MD Dic Date/Time: 04/13/19 1122 Sign date/Time: 04/13/19 1128 Shruti Robles DO [facility] BI PROCEDURES Final Result * Hepatitis C Screening (03/01/2013) Hepatitis C Screening Abstracted us Historical Provider HEALTH MAINTENANCE Final Result from Last 3 Months or Most Recently Relevant to Health Maintenance Insurance [facility] Advance Directives Documents on File Type Date Recorded Patient Tread Booker Expl anation Health Care Decision (hx) 12/24/2021 [...] (hx) 12/24/2021 AD GARCÍA DIRECTIVE Care Teams Imagery Analyst Relationship Specialty Start Date End Date Logan Snyder MD [address] [place] [phone] PCP - General Internal Medicine 06/17/21
== END 2025-07-26 15:05 ==
LOC: HO.HOSX 15:04
PROVIDERS: Visit Provider Physician Assistant
DX: M17.11 Unilateral primary osteoarthritis, right knee (principal)
CPT/HCPCS: 73562